=== PATIENT | male | born 1975 | race Caucasian/White ===

== ENCOUNTER 2020-11-14 14:05 | Outpatient (RCR) | payer MEDICARE, SELFPAY | END 2021-01-27 23:59 | LOC: IMMUN 14:05 | PROVIDERS: Visit Provider Family Medicine | DX: Z23 Encounter for immunization (principal) | CPT/HCPCS: 0001A; 0002A; 91300 ==

== ENCOUNTER → 2025-06-19 | Outpatient (CLI) | payer MEDICAID, SELFPAY ==
--- NOTE | 2025-06-19 08:42 | CT_ITS ---
PROCEDURE: SOFT TISSUE NECK W/WO CONTRAST 06/19/2025 REASON FOR EXAM: PARATHYROID TECHNIQUE: Procedure Code: CTNEWW Modality: CT Procedure: SOFT TISSUE NECK W/WO CONTRAST CONTRAST: Isovue 370 VOLUME: 100 mL One or more dose reduction techniques were used (e.g., Automated exposure control, adjustment of the mA and/or kV according to patient size, use of iterative reconstruction technique). RADIATION DOSE SUMMARY: CTDlvol: 20 mGy DLP: 586 mGycm FINDINGS: This study was performed without and with contrast according to the institutions parathyroid protocol. I am assuming that there is an elevated parathyroid hormone level. Correlated with prior nuclear medicine examination of 06/27/2024. Inspection of the right neck demonstrates normal carotid space without ectopic lesion. Inferiorly, there is a small area of oval enhancement dorsal to the right thyroid gland on image 76 of 108 of the initial contrasted examination. This is seen immediately adjacent to the esophagus and measures 6 by 3 mm. On the left, there is a lesion which was considered intrathyroidal which measures 64 Hounsfield units prior to contrast and 221 Hounsfield units initially and 113 Hounsfield units on initial delayed images. It should be noted that there is also accompanying washout in the thyroid gland. This lesion measures 17 x 10 mm. Interestingly, this lesion also demonstrated increased activity on delayed images in the nuclear medicine examination. There is no ectopic lesion superiorly on the left side. CT/Soft Tissue Neck W/WO Contrast IMPRESSION: 1. There are 2 lesions which may represent possible parathyroid pathology. The smaller 1 measures 6 x 3 mm seen to the right of the esophagus. The 2nd is difficult to separate from the thyroid gland but dem onstrated increased activity on delayed images and on the arterial and delayed images has a different density than the thyroid gla nd and is less dense on precontrast images. 2. There are no superior mediastinal lesions. Please note that the study did n ot extend down to the jens Reading Location: [facility]
--- OUTSIDE RECORDS SUMMARY | 2025-06-19 09:15 | XMS RPT_ITS | CCD ---
Author Organization [facility] Care Team Providers Care Pulverizing And Sifting Operator Name Role Phone PHYSICIAN, NONE Primary Care Physician Unavailab le BALTES BILLING REP-STONECUTTER, RAJI Primary Care Physician Provider, None Primary Care Provider Unavailabl e LAURI GARCIA DO Attending Unavailable BALTES BILLING REP-STONECUTTER, RAJI Primary Care Unavailabl e BALTA COBOS DO Attending Unavailabl e BALTES BILLING REP-STONECUTTER, RAJI Primary Care Unavailabl e BALTES BILLING REP-STONECUTTER, RAJI Primary Care Unavailabl e BALTES BILLING REP-STONECUTTER, RAJI Attending Unavailabl e BALTES BILLING REP-STONECUTTER, RAJI Attending Unavailabl e BALTES BILLING REP-STONECUTTER, RAJI Primary Care Unavailabl e BALTES, RAJI Primary Care Unavailable BALTES, RAJI Attending Unavailable AYUSH MCNULTY MD Attending Unavaila ble BALTES, RAJI Primary Care Unavailable BALTES, RAJI Primary Care Unavailable AYUSH MCNULTY MD Attending Unavaila ble BALCHRIS, RAJI Attending Unavailable BALTES, RAJI Primary Care Unavailable BALTES, RAJI Attending Unavailable BALTES, RAJI Primary Care Unavailable BALTES, RAJI Attending Unavailable BALTES, RAJI Primary Care Unavailable BALTA COBOS DO Attending Unavailabl e BALTES, RAJI Primary Care Unavailable BALTES, RAJI Attending Unavailable BALTES, RAJI Primary Care Unavailable BALTES, RAJI Primary Care Unavailable AYUSH MCNULTY MD Attending UnavailDR AKI Whipple MD Attending Unavailabl e BALTES, RAJI Primary Care Unavailable AYUSH MCNULTY MD Attending Unavaila ble BALCHRIS, RAJI Primary Care Unavailable HAMLET BENAVIDES, AYUSH Attending Unavaila ble BALTES, RAJI Primary Care Unavailable Baltes SEXUAL ABUSE COUNSELLOR-C, Raji Primary Care Physician [phone] Raji Duran Referring Provider [phone] Abena Guzman MD Attending Physician Abena Guzman Attending Unavailable Abena Guzman Referring Unavailable Katherin SEXUAL ABUSE COUNSELLOR, Raji Primary Care Unavailable Katherin SEXUAL ABUSE COUNSELLOR, Raji Primary Care Unavailable Katherin SEXUAL ABUSE COUNSELLOR, Raji Referring Unavailable Abena Guzman Attending Unavailable Allergies Allergy Classification Reported Allergen(s) Allergy Type Date of Onset Reaction(s) Facility (17 sources) Acetaminophen / HYDROcodone; Translations: [acetaminophen-hy drocodone] Drug Allergy [facility] (18 sources) Aspirin; Translations: [aspirin] Drug Allergy 5 Other [facility] Comment on above: Patient said breathi ng issues (19 sources) Erythromycin; Translations: [erythromycin] Drug Allergy 2 [facility] (17 sources) Penicillin; Translations: [penicillins] Drug Allergy [facility] (2 sources) Aluminum aspirin Drug Allergy 2 [facility] (2 sources) Penicillins Propensity to adverse reactions to drug 2 [facility] Work Phone: (1 source) Aspirin Drug Allergy 5 [facility] Repository Medications Current Medications Medication Drug Class(es) Dates Sig (Normalized) Sig (Original) acetaminophen 500 mg oral tablet (2 sources) Start: 05-16-2025 acetaminophen 500 mg oral tablet Dose : 1,000 mg = 2 tab(s), Oral, TID, PRN pain or fever, 0 Refill(s) Start Date: 05/16/25 Status: Ordered Medication Dispense Status: Completed Total Allowed Fills: 1 Fills Dispensed: 0 amitriptyline hydrochloride 25 mg oral tablet (10 sources) Tricyclic Antidepressant Start: 05-16-2025 End: 08-14-2025 take 1 tablet by mouth once daily Start: 12-19-2024 End: 04-09-2025 amitriptyline 25 mg oral tab let Dose : 25 mg = 1 tab(s), Oral, qHS, # 90 tab(s), 0 Refill(s), Pharmacy: [facility]/pharmacy #[id number], Tension headache, 168.8, cm, 01/09/25 10:01:00 EDT, Height, kg, 01/09/25 10:01:00 EDT, Dosing Weight Start Date: 01/09/25 Stop Date: 04/09/25 Status: Ordered Medication Dispense Status: Completed Quantity: 90.0 Unit: tab(s) Total Allowed Fills: 1 Fills Dispensed: 0 Indications: Tension-type headache, unspecified, not intractable; cholecalciferol 0.025 mg oral capsule (1 source) Vitamin D Start: 05-31-2025 take 1 capsule by mouth once daily clindamycin 300 mg oral capsule (1 source) Lincosamide Antibacterial Start: 06-11-2025 End: 06-16-2025 clindamycin 300 mg oral capsule Dose : 300 mg = 1 cap(s), Oral, q8hr, X 5 day(s), # 15 cap(s), 0 Refill(s), 06/16/25 9:19:00 AM EDT, Pharmacy: [facility]/pharmacy #[id number], Odontogenic infection of jaw, 152.9, cm, 06/11/25 8:58:00 EDT, Height, 68.7, kg, 06/11/25 8:58:00 EDT, Dosing Weight Start Date: 06/11/25 Stop Date: 06/16/25 Status: Ordered Medication Dispense Status: Completed Quantity: 15.0 Unit: cap(s) Total Allowed Fills: 1 Fills Dispensed: 0 Indications: Inflammatory conditions of jaws; doxycycline hyclate 100 mg oral capsule (3 sources) Tetracycline-class Drug Start: 05-31-2025 take 1 capsule by mouth twice daily Start: 05-29-2025 End: 06-05-2025 doxycycline hyclate 100 mg o ral tablet Dose : 100 mg = 1 tab(s), Oral, BID, X 7 day(s), # 14 tab(s), 0 Refill(s), 06/05/25 8:32:00 PM EDT, 69.5 Start Date: 05/29/25 Stop Date: 06/05/25 Status: Ordered Medication Dispense Status: Completed Quantity: 14.0 Unit: tab(s) Total Allowed Fills: 1 Fills Dispensed: 0 Start: 03-19-2024 End: 03-24-2024 doxycycline hyclate 100 mg o ral capsule Dose : 100 mg = 1 cap(s), Oral, BID, X 5 day(s), # 10 cap(s), 0 Refill(s), 03/24/24 11:20:00 PM EDT, 70.5 Start Date: 03/19/24 Stop Date: 03/24/24 Status: Ordered fluticasone propionate 0.05 mg/actuat metered dose nasal spray (2 sources) Corticosteroid Start: 06-04-2024 take 100 ug nasal route once daily in the morning Flonase 50 mcg/inh nasal spray 100 mcg Dose = 2 spray(s), Nostril, each, qAM, # 1 EA, 3 Refill(s), Pharmacy: [facility]/pharmacy #[id number], Seasonal allergies, 171, cm, 06/04/24 15:53:00 EDT, Height, kg, 06/04/24 15:53:00 EDT, Dosing Weight Start Date: 06/04/24 Status: Ordered levoFLOXacin 500 mg oral tablet (2 sources) Quinolone Antimicrobial Start: 06-04-2024 End: 06-11-2024 levoFLOXacin 500 mg oral tablet Dose : 500 mg = 1 tab(s), Oral, q24h, X 7 day(s), # 7 tab(s), 0 Refill(s), 06/11/24 4:22:00 PM EDT, Pharmacy: [facility]/pharmacy #[id number], Acute sinusitis, 171, cm, 06/04/24 15:53:00 EDT, Height, 62.3, kg, 06/04/24 15:53:00 EDT, Dosing Weight Start Date: 06/04/24 Stop Date: 06/11/24 Status: Ordered Start: 05-03-2024 End: 2024 levoFLOXacin 500 mg oral tab let Dose : 500 mg = 1 tab(s), Oral, q24h, X 7 day(s), # 7 tab(s), 0 Refill(s), 05/10/24 3:48:00 PM EDT, Pharmacy: [facility]/pharmacy #[id number], Sinusitis, 169.4, cm, 05/03/24 15:02:00 EDT, Height, 59.8, kg, 05/03/24 15:02:00 EDT, Dosing Weight Start Date: 05/03/24 Stop Date: 05/10/24 Status: Ordered methylPREDNISolone Dosepak 4 mg tablet (1 source) Start: 06-11-2025 End: 06-16-2025 take 1 tablet by mouth once daily methylPREDNISolone Dosepak 4 mg tablet 1 packet(s), Oral, qDay, as directed on package labeling, 0 Refill(s) Start Date: 06/11/25 Stop Date: 06/16/25 Status: Ordered Medication Dispense Status: Completed Total Allowed Fills: 1 Fills Dispensed: 0 naproxen 500 mg oral tablet (1 source) Nonsteroidal Anti-inflammator y Drug Start: 05-29-2025 End: 06-08-2025 naproxen 500 mg oral tablet Dose : 500 mg = 1 tab(s), Oral, BID, X 10 day(s), # 20 tab(s), 0 Refill(s), 06/08/25 8:32:00 PM EDT Start Date: 05/29/25 Stop Date: 06/08/25 Status: Ordered Medication Dispense Status: Completed Quantity: 20.0 Unit: tab(s) Total Allowed Fills: 1 Fills Dispensed: 0 Post-op shoe (2 sources) Start: 11-09-2021 Post-op shoe See Instructions, given in office, # 1 EA, 0 Refill(s), samples given to patient (Rx), Injury of right ankle and foot, 69.3 Start Date: 11/09/21 Status: Ordered tiZANidine 2 mg oral capsule (6 sources) Central alpha-2 Adrenergic Agonist Start: 06-11-2025 End: 07-02-2025 tiZANidine 2 mg oral capsule Dose : 2 mg = 1 cap(s), Oral, qHS, As needed for TMD / jaw pain, # 21 cap(s), 0 Refill(s), Pharmacy: [facility]/pharmacy #[id number], TMJ disease Back tightness, 152.9, cm, 06/11/25 8:58:00 EDT, Height, kg, 06/11/25 8:58:00 EDT, Dosing Weight Start Date: 06/11/25 Stop Date: 07/02/25 Status: Ordered Medication Dispense Status: Completed Quantity: 21.0 Unit: cap(s) Total Allowed Fills: 1 Fills Dispensed: 0 Indications: Unspecified temporomandibular joint disorder, unspecified side; Other specified dorsopathies, site unspecified; Start: 05-31-2025 take 1 capsule by [facility] at bedtime as needed Start: 05-16-2025 End: 05-26-2025 tiZANidine 2 mg oral capsule Dose : 2 mg = 1 cap(s), Oral, TID, PRN as needed for muscle spasm, # 30 cap(s), 0 Refill(s), [id number], Back tightness, 169, cm, 05/16/25 8:37:00 EDT, Height, kg, 05/16/25 8:34:00 EDT, Dosing Weight Start Date: 05/16/25 Stop Date: 05/26/25 Status: Ordered Medication Dispense Status: Completed Quantity: 30.0 Unit: cap(s) Total Allowed Fills: 1 Fills Dispensed: 0 Indications: Other specified dorsopathies, site unspecified; Start: 04-10-2025 End: 07-09-2025 tiZANidine 2 mg oral tablet Dose : 4 mg = 2 tab(s), Oral, qHS, PRN Muscle spasm, # 30 tab(s), 0 Refill(s), [id number], Cervical spondylosis, 170, cm, 04/10/25 11:02:00 EDT, Height, kg, 04/10/25 11:02:00 EDT, Dosing Weight Start Date: 04/10/25 Stop Date: 07/09/25 Status: Ordered Medication Dispense Status: Completed Quantity: 30.0 Unit: tab(s) Total Allowed Fills: 1 Fills Dispensed: 0 Indications: Spondylosis without myelopathy or radiculopathy, cervical region; Start: 02-05-2025 End: 02-19-2025 tiZANidine 4 mg oral capsule Dose : 4 mg = 1 cap(s), Oral, qHS, PRN for muscle spasm, # 14 cap(s), 0 Refill(s), Pharmacy: [facility]/pharmacy #[id number], Neck pain Back pain, 169, cm, 01/10/25 9:33:00 EDT, Height, kg, 01/10/25 9:33:00 EDT, Dosing Weight Start Date: 02/05/25 Stop Date: 02/19/25 Status: Ordered Quantity: 14.0 Unit: cap(s) Repeat number: 1 Indications: Dorsalgia, unspecified; Cervicalgia; Start: 11-22-2024 End: 12-06-2024 tiZANidine 4 mg oral capsule Dose : 4 mg = 1 cap(s), Oral, qHS, PRN for muscle spasm, # 14 cap(s), 0 Refill(s), Pharmacy: [facility]/pharmacy #[id number], Neck pain Back pain, 168.8, cm, 11/22/24 13:29:00 EDT, Height, kg, 11/22/24 13:29:00 EDT, Dosing Weight Start Date: 11/22/24 Stop Date: 12/06/24 Status: Ordered Quantity: 14.0 Unit: cap(s) Repeat number: 1 Indications: Dorsalgia, unspecified; Cervicalgia; Vitamin D3 (5 sources) Start: 11-04-2016 Vitamin D3 Dos e : 5,000 unit(s) = 1 cap(s), Oral, qDay, 0 Refill(s) Start Date: 11/04/16 Status: Ordered Start: 11-04-2016 Vitamin D3 Dos e : 5,000 unit(s) = 1 cap(s), Oral, qWeek, 0 Refill(s) Start Date: 11/04/16 Status: Ordered Vitamin D3 50 mcg (2000 intl units) oral capsule (13 sources) Start: 05-16-2025 End: 08-14-2025 take 1 tablet by mouth once daily Vitamin D3 50 mcg (2000 intl units) oral capsule 1 tab(s), Oral, Daily, # 90 tab(s), 0 Refill(s), Pharmacy: [facility]/pharmacy #[id number], Vitamin D deficiency, 169, cm, 05/16/25 8:37:00 EDT, Height, kg, 05/16/25 8:34:00 EDT, Dosing Weight Start Date: 05/16/25 Stop Date: 08/14/25 Status: Ordered Medication Dispense Status: Completed Quantity: 90.0 Unit: tab(s) Total Allowed Fills: 1 Fills Dispensed: 0 Indications: Vitamin D deficiency, unspecified; Start: 03-05-2025 End: 06-03-2025 take 1 tablet by mouth once daily Vitamin D3 50 mcg (2000 intl units) oral capsule 1 tab(s), Oral, Daily, # 90 tab(s), 0 Refill(s), Pharmacy: [facility]/pharmacy #[id number], Vitamin D deficiency, 169, cm, 01/10/25 9:33:00 EDT, Height, kg, 01/10/25 9:33:00 EDT, Dosing Weight Start Date: 03/05/25 Stop Date: 06/03/25 Status: Ordered Medication Dispense Status: Completed Quantity: 90.0 Unit: tab(s) Total Allowed Fills: 1 Fills Dispensed: 0 Indications: Vitamin D deficiency, unspecified; Start: 03-05-2025 End: 06-03-2025 take 1 tablet by mouth once daily Vitamin D3 50 mcg (2000 intl units) oral capsule 1 tab(s), Oral, Daily, # 90 tab(s), 0 Refill(s), [id number], Vitamin D deficiency, 169, cm, 01/10/25 9:33:00 EDT, Height, kg, 01/10/25 9:33:00 EDT, Dosing Weight Start Date: 03/05/25 Stop Date: 06/03/25 Status: Ordered Quantity: 90.0 Unit: tab(s) Repeat number: 1 Indications: Vitamin D deficiency, unspecified; Start: 11-22-2024 End: 02-20-2025 take 1 tablet by mouth once daily Vitamin D3 50 mcg (2000 intl units) oral capsule 1 tab(s), Oral, Daily, # 90 tab(s), 0 Refill(s), [id number], Vitamin D deficiency, 168.8, cm, 11/22/24 13:29:00 EDT, Height, kg, 11/22/24 13:29:00 EDT, Dosing Weight Start Date: 11/22/24 Stop Date: 02/20/25 Status: Ordered Quantity: 90.0 Unit: tab(s) Repeat number: 1 Indications: Vitamin D deficiency, unspecified; Start: 05-05-2024 End: 08-03-2024 take 1 tablet by mouth once daily Vitamin D3 50 mcg (2000 intl units) oral capsule 1 tab(s), Oral, Daily, # 90 tab(s), 0 Refill(s), Pharmacy: [facility]/pharmacy #[id number], Vitamin D deficiency, 169.4, cm, 05/03/24 15:02:00 EDT, Height, kg, 05/03/24 15:02:00 EDT, Dosing Weight Start Date: 05/05/24 Stop Date: 08/03/24 Status: Ordered Completed/Discontinued Medications Medication Drug Class(es) Dates Sig (Normalized) Sig (Original) meloxicam 15 mg oral tablet (4 sources) Nonsteroidal Anti-inflammatory Drug Start: 12-19-2024 End: 01-18-2025 meloxicam 15 mg oral tablet Dose : 15 mg = 1 tab(s), Oral, qDay, # 30 tab(s), 0 Refill(s), [id number], Low back pain, 168.8, cm, 12/19/24 9:13:00 EDT, Height, kg, 12/19/24 9:04:00 EDT, Dosing Weight Start Date: 12/19/24 Stop Date: 01/18/25 Status: Ordered Quantity: 30.0 Unit: tab(s) Repeat number: 1 Indications: Low back pain, unspecified; Start: 11-09-2021 meloxicam 15 m g oral tablet Dose : 15 mg = 1 tab(s), Oral, qDay, # 30 tab(s), 0 Refill(s), [facility]: [facility] Injury of right ankle and foot, 170.2, cm, 11/09/21 9:33:00 EDT, Height, kg, 11/09/21 9:33:00 EDT, Dosing Weight Start Date: 11/09/21 Status: Ordered Problems Active Problems Problem Classification Problem Date Documented Date Episodic/Chronic Asthma (17 sources) Asthma 11-04-2016 Chronic Cardiac dysrhythmias (1 source) Tachyarrhythmia ; Translations: [Tachycardia, unspecified] Episodic Chronic obstructive pulmonary disease and bronchiectasis (17 sources) Chronic obstructive lung disease 11-04-2016 Chronic Disorders of teeth and jaw (3 sources) Dental caries; Translations: [Dental caries, unspecified] Onset: Episodic Fracture of lower limb (1 source) Closed fracture of third metatarsal bone ; Translations: [Displaced fracture of third metatarsal bone, right foot, initial encounter for closed fracture] Episodic Nutritional deficiencies (7 sources) Vitamin D deficiency 03-19-2025 Chronic Osteoporosis (4 sources) Osteoporosis; Translations: [Age-related osteoporosis without current pathological fracture] 05-15-2025 Chronic Comment on above: Osteoporosis likely secondary to primary hyperparathyroidism described in greater detail above. Other connective tissue disease (1 source) Pain in right foot; Translations: [Pain in right foot] Episodic Other endocrine disorders (9 sources) Primary hyperparathyroidism; Translations: [Primary hyperparathyroidism] 03-19-2025 Chronic Comment on above: Patient with clear d iagnosis of primary parathyroidism by labs. He is quite symptomatic with a number of recent pathologic fractures as well as osteoporosis determined on DEXA imaging 2 months ago. Interestingly, patient's forearm appears to most demineralized which is somewhat specific to this diagnosis. A brief overview of hyperparathyroidism was provided to patient including the multiple secondary effects of this disease process. It does not appear that patient has undergone testing for occult nephrolithiasis or 24-hour urinary calcium. However, he does have evidence of significant hypercalcemia which meets qualifications for surgical intervention. Additionally, patient underwent localization studies with thyroid ultrasound and parathyroid scintigraphy. Unfortunately no candidate lesions were identified with the studies, but in my independent review I observed a hypoechoic structure in the left superior position that is highly suggestive. With this finding I believe it is possible patient's scintigraphy was in fact positive in the absence of washout on the left was truly attributable to an adenoma? This was further confirmed with my own bedside ultrasound. Any intervention on the patient's thyroid should include intervention for patient's primary hyperparathyroidism so we will continue this investigation. Other gastrointestinal disorders (2 sources) Dysphagia; Translations: [Dysphagia, unspecified] 05-31-2025 Episodic Comment on above: Patient describes dy sphagia to solids and liquids. Size of thyroid and nodule do not appear entirely explanatory. Will investigate further with CT imaging. Other nutritional; endocrine; and metabolic disorders (7 sources) Hypercalcemia 03-19-2025 Chronic Other screening for suspected conditions (not mental disorders or infectious disease) (1 source) Blood chemistry abnormal; Translations: [Other specified abnormal findings of blood chemistry] Episodic Other upper respiratory disease (12 sources) Seasonal allergy 06-04-2024 Chronic Other upper respiratory infections (1 source) Chronic sinusitis; Translations: [Chronic sinusitis, unspecified] Chronic Other upper respiratory infections (1 source) Acute sinusitis, unspecified; Translations: [Acute sinusitis, unspecified] Onset: 4 Episodic Spondylosis; intervertebral disc disorders; other back problems (20 sources) Degeneration of lumbar intervertebral disc; Translations: [Cervical spondylosis] 12-18-2024 Chronic Sprains and strains (1 source) Sprain of ankle; Translations: [Sprain of unspecified ligament of unspecified ankle, initial encounter] Onset: 1 Episodic Thyroid disorders (12 sources) Thyroid nodule; Translations: [Nontoxic single thyroid nodule] Onset: 5 10-26-2024 Chronic Comment on above: Patient is a 50-year -old male with history of left thyroid nodule highly suspicious by TI-RADS rating that underwent FNA biopsy and determined to be benign. He presents with possible compressive symptom primarily being difficulty swallowing. No prior EGD exam. Given patient's thyroid nodule and low proportions it remains somewhat dubious whether his thyroid is too be implicated with this swallowing difficulty. Therefore, recommending CT imaging to determine spatial relationship to the esophagus as well as possible subsequent recommendation for EGD. Since we are also looking for further localization of a possible parathyroid will obtain 4D CT protocol of the neck. Unclassified (12 sources) Patient encounter status 06-04-2024 Past or Other Problems Problem Classification Problem Date Documented Da te Episodic/Chronic Malaise and fatigue (3 sources) Asthenia; Translations: [Weakness] Onset: 11-06-2024 Episodic Spondylosis; intervertebral disc disorders; other back problems (4 sources) Backache; Translations: [Dorsalgia, unspecified] Onset: 11-06-2024 Episodic Results Test Name Value Interpretation Reference Range Facility .GFRon 06-14-2025 Estimated Glomerular Filtration Rate 103 ml/min/1.73sqm Normal [facility] Comment on above: Result Comment: Stages of Chronic Kidney Disease (CKD) Stage Description eGFR(ml/min/1.73 sq.m.) CKD 1 Normal kidney function or >=90 normal kindney function with possible kidney damage (ex. Proteinuria) CKD 2 Kidney damage with mild loss 60-89 of kidney function CKD 3a Mild to moderate loss of kidney 45-59 function CKD 3b Moderate to severe loss of 30-44 of kindey function CKD 4 Severe loss of kidney function 15-29 CKD 5 Kidney failure <15 Note: (go live 2024) the eGFR calculation was updated to the 2020 CKD-EPI creatinine equation without a race factor to calculate the eGFR results. Performed By: #### G FR, PHOS, FT4, MG, VIDH, CMP, TSH, CAION ####[place] [address]#### PTH ####[place] [address] CAIONon 06-14-2025 Calcium Ionized 1.45 mmol/L High 1.12-1.32 [facility] Comment on above: Performed By: #### C AUR #### [place] [address] #### CRUR #### [place] [address] CAURon 06-14-2025 Calcium [Mass/Vol] 14.0 mg/dL Normal [facility] Comment on above: Performed By: #### C AUR #### [place] [address] #### CRUR #### [place] [address] CMPon 06-14-2025 Albumin Level 3.6 G/dL Normal 3.5-5.0 [facility] Comment on above: Performed By: #### G FR, PHOS, FT4, MG, VIDH, CMP, TSH, CAION ####[place] [address]#### PTH ####[place] [address] Albumin/Globulin [Mass ratio] 1.0 {ratio} Low 1.1-2.5 [facility] Comment on above: Performed By: #### G FR, PHOS, FT4, MG, VIDH, CMP, TSH, CAION ####[place] [address]#### PTH ####[place] [address] ALP [Catalytic activity/Vol] 113 U/L Normal 40-135 [facility] Comment on above: Performed By: #### G FR, PHOS, FT4, MG, VIDH, CMP, TSH, CAION ####[place] [address]#### PTH ####[place] [address] ALT [Catalytic activity/Vol] 38 U/L Normal 16-63 [facility] Comment on above: Performed By: #### G FR, PHOS, FT4, MG, VIDH, CMP, TSH, CAION ####[place] [address]#### PTH ####[place] [address] AST [Catalytic activity/Vol] 13 U/L Normal 10-40 [facility] Comment on above: Performed By: #### G FR, PHOS, FT4, MG, VIDH, CMP, TSH, CAION ####[place] [address]#### PTH ####[place] [address] Bili Total 0.4 mg/dL Normal 0.2-1.0 [facility] Comment on above: Result Comment: Use of this assay is not recommended for patients undergoing treatment with eltrombopag due to the potential for falsely elevated results. Performed By: #### G FR, PHOS, FT4, MG, VIDH, CMP, TSH, CAION ####[place] [address]#### PTH ####[place] [address] BUN/Creatinine Ratio 9 ratio Normal 7-27 [facility] Comment on above: Performed By: #### G FR, PHOS, FT4, MG, VIDH, CMP, TSH, CAION ####[place] [address]#### PTH ####[place] [address] Calcium [Mass/Vol] 12.0 mg/dL High 8.4-10.2 [facility] Comment on above: Performed By: #### G FR, PHOS, FT4, MG, VIDH, CMP, TSH, CAION ####[place] [address]#### PTH ####[place] [address] Chloride [Moles/Vol] 101 mmol/L Normal 98-107 [facility] Comment on above: Performed By: #### G FR, PHOS, FT4, MG, VIDH, CMP, TSH, CAION ####[place] [address]#### PTH ####[place] [address] CO2 [Moles/Vol] 31 mmol/L High 22-29 [facility] Comment on above: Performed By: #### G FR, PHOS, FT4, MG, VIDH, CMP, TSH, CAION ####[place] [address]#### PTH ####[place] [address] Creatinine [Mass/Vol] 0.89 mg/dL Normal 0.67-1.17 [facility] Comment on above: Performed By: #### G FR, PHOS, FT4, MG, VIDH, CMP, TSH, CAION ####[place] [address]#### PTH ####[place] [address] Electrolyte Balance 5.0 mEq/L Normal 4.0-15.0 [facility] Comment on above: Performed By: #### G FR, PHOS, FT4, MG, VIDH, CMP, TSH, CAION ####[place] [address]#### PTH ####[address] [address] Globulin 3.7 G/dL Normal 2.7-4.4 [facility] Comment on above: Performed By: #### G FR, PHOS, FT4, MG, VIDH, CMP, TSH, CAION ####[place] [address]#### PTH ####[place] [address] Glucose [Mass/Vol] 78 mg/dL Normal 70-105 [facility] Comment on above: Performed By: #### G FR, PHOS, FT4, MG, VIDH, CMP, TSH, CAION ####[place] [address]#### PTH ####[place] [address] Potassium [Moles/Vol] 4.1 mmol/L Normal 3.5-5.1 [facility] Comment on above: Performed By: #### G FR, PHOS, FT4, MG, VIDH, CMP, TSH, CAION ####[place] [address]#### PTH ####[place] [address] Sodium [Moles/Vol] 137 mmol/L Normal 136-145 [facility] Comment on above: Performed By: #### G FR, PHOS, FT4, MG, VIDH, CMP, TSH, CAION ####[place] [address]#### PTH ####[place] [address] Total Protein 7.3 G/dL Normal 6.4-8.2 [facility] Comment on above: Performed By: #### G FR, PHOS, FT4, MG, VIDH, CMP, TSH, CAION ####[place] [address]#### PTH ####[address] [address] Urea nitrogen [Mass/Vol] 8 mg/dL Normal 7-18 [facility] Comment on above: Performed By: #### G FR, PHOS, FT4, MG, VIDH, CMP, TSH, CAION ####[address] [place], [place] [address]#### PTH ####[place] [address] CRURon 06-14-2025 U Creatinine 32.6 mg/dL Normal [facility] Comment on above: Performed By: #### C AUR #### [place] [address] #### CRUR #### [facility] [address] [place], [place] [address] FT4on 06-14-2025 Free T4 [Mass/Vol] 1.00 ng/dL Normal 0.76-1.46 [facility] Comment on above: Performed By: #### G FR, PHOS, FT4, MG, VIDH, CMP, TSH, CAION ####[address] [address]#### PTH ####[place] [address] LABORATORYOrdered By: Connie Urbina on 06-14-2025 Calcium (U) [Mass/Vol] 14.0 mg/dL Invalid Interpretation Code AH ADM SS LABORATORYOrdered By: SYSTEM SYSTEM on 06-14-2025 Creatinine (U) [Mass/Vol] 32.6 mg/dL Invalid Interpretation Code AO ADM SS 25-hydroxyvitamin D3 [Mass/Vol] 31.5 ng/mL Invalid Interpretation Code AO ADM SS Comment on above: Interpretive Data: I nterpretive Values Based on Total 25(OH) Vitamin D: Deficient <20 ng/mL Insufficient 20 - <30 ng/mL Sufficient 30-100 ng/mL Albumin BCP dye [Mass/Vol] 3.6 G/dL Normal 3.5 - 5.0 G/dL AO ADM SS Albumin/Globulin [Mass ratio] 1.0 {ratio} Low 1.1 - 2.5 ratio AO ADM SS ALP [Catalytic activity/Vol] 113 U/L Normal 40 - 135 U/L AO ADM SS ALT With P-5'-P [Catalytic activity/Vol] 38 U/L Normal 16 - 63 U/L AO ADM SS AST With P-5'-P [Catalytic activity/Vol] 13 U/L Normal 10 - 40 U/L AO ADM SS Bilirubin [Mass/Vol] 0.4 mg/dL Normal 0.2 - 1 .0 mg/dL AO ADM SS Comment on above: Interpretive Data: U se of this assay is not recommended for patients undergoing treatment with eltrombopag due to the potential for falsely elevated results. Calcium [Mass/Vol] 12.0 mg/dL High 8.4 - 10. 2 mg/dL AO ADM SS Chloride [Moles/Vol] 101 mmol/L Normal 98 - 10 7 mmol/L AO ADM SS CO2 [Moles/Vol] 31 mmol/L High 22 - 29 mmol/L AO ADM SS Creatinine [Mass/Vol] 0.89 mg/dL Normal 0.67 - 1.17 mg/dL AO ADM SS Electrolyte Balance 5.0 mEq/L Normal 4.0 - 15 .0 mEq/L AO ADM SS Free T4 [Mass/Vol] 1.00 ng/dL Normal 0.76 - 1. 46 ng/dL AO ADM SS Globulin 3.7 G/dL Normal 2.7 - 4.4 G/dL AO ADM SS GLOMERULAR FILTRATION RATE/1.73 SQ M.PREDICTED:ARVRAT:PT :SER/PLAS/BLD:QN:CREA TININE-BASED FORMULA (CKD-EPI 2020) 103 ml/min/1.73sqm Invalid Interpretation Code AO Chemistry S Comment on above: Interpretive Data: Stages of Chronic Kidney Disease (CKD) Stage Description eGFR(ml/min/1.73 sq.m.) CKD 1 Normal kidney function or >=90 normal kindney function with possible kidney damage (ex. Proteinuria) CKD 2 Kidney damage with mild loss 60-89 of kidney function CKD 3a Mild to moderate loss of kidney 45-59 function CKD 3b Moderate to severe loss of 30-44 of kindey function CKD 4 Severe loss of kidney function 15-29 CKD 5 Kidney failure <15 Note: (go live 2024) the eGFR calculation was updated to the 2020 CKD-EPI creatinine equation without a race factor to calculate the eGFR results. Glucose [Mass/Vol] 78 mg/dL Normal 70 - 105 mg/dL AO ADM SS Magnesium [Mass/Vol] 2.1 mg/dL Normal 1.8 - 2 .4 mg/dL AO ADM SS Parathyrin.intact [Mass/Vol] 100.5 pg/mL High 18.5 - 88.0 pg/mL AH ADM SS Phosphate [Mass/Vol] 3.0 mg/dL Normal 2.7 - 4 .5 mg/dL AO ADM SS Potassium [Moles/Vol] 4.1 mmol/L Normal 3.5 - 5.1 mmol/L AO ADM SS Protein [Mass/Vol] 7.3 G/dL Normal 6.4 - 8.2 G/dL AO ADM SS Sodium [Moles/Vol] 137 mmol/L Normal 136 - 145 mmol/L AO ADM SS TSH Qn 1.27 m[IU]/L Normal 0.36 - 3.74 mcIU/mL AO ADM SS Urea nitrogen [Mass/Vol] 8 mg/dL Normal 7 - 18 mg/dL AO ADM SS Urea nitrogen/Creatinine [Mass ratio] 9 ratio Normal 7 - 27 ratio AO ADM SS LABORATORYOrdered By: Conor gan on 06-14-2025 Calcium Ionized 1.45 mmol/L High 1.12 - 1.32 mmol/L AO Rapid Comm SS MGon 06-14-2025 Magnesium [Mass/Vol] 2.1 mg/dL Normal 1.8-2.4 [facility] Comment on above: Performed By: #### C AUR #### [address] [address] #### CRUR #### [address] [address] PHOSon 06-14-2025 Phosphate [Mass/Vol] 3.0 mg/dL Normal 2.7-4.5 [facility] Comment on above: Performed By: #### C AUR #### [address] [address] #### CRUR #### [place] [id number] [place], [place] [address] PTHon 06-14-2025 PTH, Intact 100.5 pg/mL High 18.5-88.0 [facility] Comment on above: Performed By: #### G FR, PHOS, FT4, MG, VIDH, CMP, TSH, CAION ####[place] [address] [place], [place] [address]#### PTH ####[address] [address] TSHon 06-14-2025 TSH Qn 1.27 m[IU]/L Normal 0.36-3.74 [facility] Comment on above: Performed By: #### C AUR #### [place] [address] #### CRUR #### [address] [address] VIDHon 06-14-2025 Vit. D 25-Hydroxy 31.5 ng/mL Normal [facility] Comment on above: Result Comment: Inte rpretive Values Based on Total 25(OH) Vitamin D: Deficient <20 ng/mL Insufficient 20 - <30 ng/mL Sufficient 30-100 ng/mL Performed By: #### G FR, PHOS, FT4, MG, VIDH, CMP, TSH, CAION ####[place] [address] [place] [id number]#### PTH ####[place] [address] Surgery Visit Reporton 05-31 Surgery Visit Report [facility] [address] [place] [address] [address] [place] [address] OFFICE VISIT Date of Service: 05/31/25 MR#: [id number] Acct: [id number] Name: MARIBEL LANGFORD Fred Rep #: [id number] : 1975 Provider: Dr. Abena cai MD Age/Sex: 50/M Location: [facility] Status: Signed Intake Vital Signs 05/31/25 09:50 Height 5 ft 9 in Weight: 151 lb BMI 22.3 BP 137/91 H Blood Pressure Location Rt brachial Position Sitting Respiration 17 Pulse 115 H Pulse Source Monitor Pulse Oximetry (%) 98 Oxygen Delivery Method room air Intake Visit Reasons: POSSIBLE THYROIDECTOMY Chief Complaint: possible thyroidectomy Is patient in pain?: No Allergies aspirin Allergy (Intermediate, Verified 05/31/25 09:53) Other Medications ???Medication ???Instructions ???Recorded ???Confirmed ???Type amitriptyline 25 mg tablet 25 mg PO QDAY 05/31/25 05/31/25 Hi story cholecalciferol (vitamin D3) 25 25 mcg PO QDAY 05/31/25 05/31/25 H istory mcg (1,000 unit) capsule doxycycline hyclate 100 mg capsule 100 mg PO BID 05/31/25 05/31/25 History tizanidine 4 mg capsule 4 mg PO QHS PRN 05/31/25 05/31/25 History PFSH Medical History (Updated 05/31/25 @ 18:[address] Abena Guzman MD) Sleep apnea Asthma Family History (Updated 05/31/25 @ 09:47 by Leeanne John) Mother Cancer Thyroid disorder Hypertension Father Cancer Social History (Updated 05/31/25 @ 09:47 by Leeanne John) Smoking Status: Current every day smoker quit status: not considering quitting alcohol intake: current alcohol intake frequency: a few times a month HPI HPI HPI: The patient is a 50-year-old male with hyperparathyroidism and osteoporosis presenting to discuss thyroid and parathyroid issues. The patient reports a several-year history of fatigue and malaise that prompted extensive testing before hypercalcemia was identified. He recalls that the workup intensified last year, and he has been followed by endocrinology (Dr. Michaud). He was told that his parathyroid condition is causing calcium to be pulled from his bones, leading to osteoporosis and fractures. He reports a history of multiple fractures over the past few years, including a recent incident this year where he fractured his back in multiple places and injured his neck while lifting a laundry basket at home after a physically demanding workday. 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 He also reports a history of breaking 5 toes, his foot, and ankle while wrestling with his son 3-4 years ago, as well as a prior fracture of his other ankle. He has undergone bone density testing with Dr. Michaud, who informed him that his bones are very bad, comparable to those of someone 20 years older. He denies brittle fingernails. He reports dental problems, including a tooth that broke while eating soft food last year, which he attributes to his bone condition. He denies cavities. He also reports difficulty swallowing both solids and liquids for about a year, which has worsened over time. He experiences episodes where food just won't go down and attributes this to his neck injury and muscle problems for which he received injections last week. He also reports neck stiffness and difficulty moving his neck. He denies kidney stones. He reports urinary frequency and urgency, with variable volumes. He drinks approximately 2 gallons of tea daily and consumes a large glass of lactose-free milk each morning, snacks on cheese, and avoids ice cream and yogurt due to lactose intolerance. He does not take calcium supplements. He reports cognitive slowing, difficulty focusing, and forgetfulness that has worsened over the past year. He also reports muscle weakness and difficulty standing up due to his back injury. He denies palpitations, anxiety, depression, reflux, constipation, shortness of breath, dry cough, hoarseness, heat or cold intolerance, and radiation exposure. He reports snoring and trouble sleeping due to discomfort but is unaware of any sleep apnea. He reports weight fluctuations but states his weight has been steady recently. He reports stable bowel habits. He has a family history of parathyroid problems in his mother, who reportedly had most of her parathyroid glands removed and is doing well. He is unaware of any other family history of thyroid or adrenal conditions. He has no history of radiation exposure. He was diagnosed with a 2.0 cm left thyroid nodule in March, which was biopsied and found to be benign. He has not undergone an EGD. He believes he is up to date on colonoscopies, with the last one performed last year. Patient's current labs are calcium: 1 (more content not included)... Normal [facility] Non-Stitcher Feeder Cytology Reporton Non-Stitcher Feeder Cytology Report . Pathology Reports Accession: Collected Date/Time: Received Date/Time: Pathologist: [id number] 04/18/2025 17:19 EDT 04/19/2025 08:59 EDT DALE SIMON MD Non-Stitcher Feeder Cytology Report CLINICAL INFORMATION: Thyroid nodule E04.1 DIAGNOSTIC CATEGORY: BENIGN. Benign-appearing follicular cells and colloid, consistent with a benign follicular nodule. Air-drying artifact present. SPECIMEN: LLL 2.0cm thyroid nodule FNA GROSS DESCRIPTION: # of Monolayers: 1 # of Fixed Smears: 6 Volume (ml) 30 Color: Fixed clear pink CytoLyt Afirma sample collected for reflex testing SUGGESTION/EDUCATIONAL NOTES: This specimen was evaluated using criteria described in The [employer] System for Reporting Thyroid Cytopathology, Second Edition (2018). The following risk of malignancy rates are estimates based on published studies and includes data extrapolation. Individual institutions may have different rates. Actual management may depend on other factors (e.g., clinical. Sonographic) besides the FNA interpretation. Diagnostic Category Risk of Usual management malignancy (%) Non diagnostic or Unsatisfactory 5-10 Repeat FNA with US guidance Benign 0-3 Clinical and US follow up Atypia of Undetermined 10-30 Repeat FNA, molecular Significance testing or lobectomy Follicular neoplasm or Suspicious 25-40 Molecular testing, for follicular neoplasm lobectomy Suspicious for Malignancy 50-75 Near-total thyroidectomy or lobectomy Malignant 97-99 Near-total thyroidectomy or lobectomy Verified by Pathology Report verified by [facility] Screened by: LAUREN NG Electronically signed by DALE SIMON Sign-Out Date: 04/23/2025 11:50 Performing Lab: [facility], [address] [place] [address] Pathology Dept Disclaimer If ancillary studies were utilized, the following Laboratory Developed Test (LDT) disclaimer will apply: Pathology Reports Accession: Collected Date/Time: Received Date/Time: Pathologist: [id number] 04/18/2025 17:19 EDT 04/19/2025 08:59 EDT DALE SIMON MD Disclaimer Under CLIA requirements, [facility] is qualified to perform high complexity testing. For all ancillary stains, positive and negative controls stain appropriately. Performance characteristics of immunohistochemical and chromogenic in-situ hybridization tests have been determined by [facility]. These tests are used for clinical purposes, They should not be regarded as investigational or for research. Normal [facility] MRI SPINE CERVICAL W/O CONTR Sandra 03-29-2025 MRI SPINE CERVICAL W/O CONTRAST ORIGINAL EXAMINATION: MRI OF THE CERVICAL SPINE WITHOUT CONTRAST 03/29/2025 11:14 am TECHNIQUE: Multiplanar multisequence MRI of the cervical spine was performed without the administration of intravenous contrast. COMPARISON: None. HISTORY: ORDERING SYSTEM PROVIDED HISTORY: Reason for Exam: Neck pain, chronic, degenerative changes on xray ; Neck pain, chronic FINDINGS: BONES/ALIGNMENT: There is normal alignment of the spine. The vertebral body heights are maintained. The bone marrow signal appears unremarkable. Facet arthropathy is greatest at C4-C5. SPINAL CORD: No abnormal cord signal is seen. SOFT TISSUES: No paraspinal mass identified. Sebaceous cysts are noted in the subcutaneous fat overlying the occiput. C2-C3: There is no significant disc protrusion, spinal canal stenosis or neural foraminal narrowing. C3-C4: There is no significant disc protrusion, spinal canal stenosis or neural foraminal narrowing. C4-C5: There is no significant disc protrusion, spinal canal stenosis or neural foraminal narrowing. C5-C6: There is no significant disc protrusion, spinal canal stenosis or neural foraminal narrowing. C6-C7: There is no significant disc protrusion, spinal canal stenosis or neural foraminal narrowing. C7-T1: There is no significant disc protrusion, spinal canal stenosis or neural foraminal narrowing. IMPRESSION: Facet degenerative changes. No herniated disc or significant canal or foraminal narrowing. Interpreted by: Jaya Daniel Preliminary Report By: Jaya Daniel Electronically signed By Jaya Daniel Dictated Date: 03/29/2025 11:29:29 AM Prelim Date: 03/29/2025 11:30:43 AM Sign Date: 03/29/2025 11:30:43 AM Ordering Provider: BALTA Mcnally [facility] BD BONE DENSITY DEXA AXIAL S Evangelina 03-25-2025 BD BONE DENSITY DEXA AXIAL SKELETON ORIGINAL EXAMINATION: BONE DENSITOMETRY03/25/2025 10:22 am TECHNIQUE: Dual energy bone densitometry right forearm and left hip. COMPARISON: None HISTORY: ORDERING SYSTEM PROVIDED HISTORY:Reason for Exam: hypercalcemia, possible mineralization defect Osteoporosis screening. FINDINGS: T Score Left Femoral Neck: -2.3 Left Femoral Neck: 0.613 (g/cm2) T Score Left Hip: -1.6 Left Hip: 0.786 (g/cm2) T Score Right Forearm: -3.0 Right Forearm: 0.654 (g/cm2) COMMENTS: hx back fx, hx lt elbow sx FRAX score: 10 year risk major osteoporotic fracture 25 %. 10 year risk hip fracture 6.4 %. The BHOF f/k/a NOF recommends that FDA-approved medical therapies be considered in post-menopausal women and men age >/= 50 years with a: * Hip or vertebral fracture, or * T-score of /= 20% for major osteoporotic fractures or * >/= 3% for hip fractures All treatment decisions require clinical judgement and consideration of individual patient factors, including patient preferences, comorbidities, previous drug use, risk factors not captured in the FRAX registered model (e.g., frailty, falls, vitamin D deficiency, increased bone turnover, interval significant decline in bone density) and possible under- or over-estimation of fracture risk by FRAX. IMPRESSION: Osteoporosis. Interpreted by: Marcy Stephens MD Preliminary Report By: Marcy Stephens MD Electronically signed By Marcy Stephens MD Dictated Date: 03/25/2025 11:52:16 PM Prelim Date: 03/25/2025 11:53:48 PM Sign Date: 03/25/2025 11:53:48 PM Ordering Provider: AYUSH MCNULTY [facility] US THYROIDon 03-25-2025 US THYROID ORIGINAL EXAMINATION: Ultrasound Thyroid 03/25/2025 10:29 am COMPARISON: Ultrasound 07/31/2024 TECHNIQUE: This report is based on interpretation of permanently recorded ultrasound images. HISTORY: ORDERING SYSTEM PROVIDED HISTORY: Reason for Exam: Thyroid Nodule, FINDINGS: Size right thyroid lobe: 4.9 x 1.6 x 1.9 cm Size left thyroid lobe: 5.9 x 2.1 x 1 point cm Size isthmus: 0.7 cm Texture: Homogeneous background echogenicity with normal vascularity. Estimated total number of nodules greater than or equal to 1 cm: 1 Nodule#: # 1: This is a nodule in the lower left lobe also seen previously that is 2.0 x 1.4 x 1.1 cm not significantly changed. The nodule is solid hyperechoic taller than wide with lobular margins and no suspicious echogenic foci. ACR Total Points: >/= 7; ACR TI-RADS risk category: TR5 - highly suspicious nodule. There is no other suspicious thyroid nodule. IMPRESSION: Stable left thyroid nodule. 1. Nodule 1: Size 2.0 cm, ACR TI-RADS 2017 Risk category and Recommendation TR 5, fine-needle biopsy suggested.. ACR TI-RADS 2017 Recommendations: TR1(0 points) : No FNA or follow up TR2 (2 points) : No FNA or follow up TR3 (3 points) : FNA if >/= 2.5 cm, follow up if 1.5 - 2.4 cm in 1, 3, and 5 years TR4 (4-6 points) : FNA if >/= 1.5 cm, follow up if 1.0 - 1.4 cm in 1, 2, 3, and 5 years TR5 (>/= 7 points) : FNA if >/= 1.0 cm, follow up if 0.5 - 0.9 cm every year for 5 years *ACR TI-RADS recommends that no more than two nodules with the highest ACR TI-RADS total point should be biopsied and no more than four nodules should be followed. Interpreted by: Lesly Verdin MD Preliminary Report By: Lesly Verdin MD Electronically signed By Lesly Verdin MD Dictated Date: 03/25/2025 11:14:23 AM Prelim Date: 03/25/2025 11:16:56 AM Sign Date: 03/25/2025 11:16:56 AM Ordering Provider: AYUSH MCNULTY [facility] VIDDHojoao 03-25-2025 Vit D 125 di-OH 80.0 pg/mL Normal 24.8-81.5 [facility] Comment on above: Result Comment: Perf ormed At: [facility] [id number] Prince Gutierrez MD Ph:[phone] Performed By: #### C AUR #### [facility] [address] [place] [id number] #### VISHUR #### [facility] [address] [place], [place] [address] .GFRon 03-20-2025 Estimated Glomerular Filtration Rate 102 ml/min/1.73sqm [facility] Comment on above: Result Comment: Stages of Chronic Kidney Disease (CKD) Stage Description eGFR(ml/min/1.73 sq.m.) CKD 1 Normal kidney function or >=90 normal kindney function with possible kidney damage (ex. Proteinuria) CKD 2 Kidney damage with mild loss 60-89 of kidney function CKD 3a Mild to moderate loss of kidney 45-59 function CKD 3b Moderate to severe loss of 30-44 of kindey function CKD 4 Severe loss of kidney function 15-29 CKD 5 Kidney failure <15 Note: (go live 2024) the eGFR calculation was updated to the 2020 CKD-EPI creatinine equation without a race factor to calculate the eGFR results. Performed By: #### C AUR #### [place] [address] #### CRUR #### [address] [address] CAIONon 03-20-2025 Calcium Ionized 1.31 mmol/L Normal 1.12-1.32 [facility] Comment on above: Performed By: #### C AUR #### [place] [address] #### CRUR #### [address] [address] CAURon 03-20-2025 Calcium [Mass/Vol] 12.0 mg/dL Normal [facility] Comment on above: Performed By: #### C AUR #### [place] [address] #### CRUR #### [address] [address] CKon 03-20-2025 CK [Catalytic activity/Vol] 68 U/L Normal 39-308 [facility] Comment on above: Performed By: #### C K #### [address] [address] CMPon 03-20-2025 Albumin Level 3.9 G/dL Normal 3.5-5.0 [facility] Comment on above: Performed By: #### C AUR #### [place] [address] #### CRUR #### [address] [address] Albumin/Globulin [Mass ratio] 1.1 {ratio} Normal 1.1-2.5 [facility] Comment on above: Performed By: #### C AUR #### [place] [address] #### CRUR #### [place] [id number] ALP [Catalytic activity/Vol] 92 U/L Normal 40-135 [facility] Comment on above: Performed By: #### C AUR #### [place] [address] #### CRUR #### [place] [address] ALT [Catalytic activity/Vol] 33 U/L Normal 16-63 [facility] Comment on above: Performed By: #### C AUR #### [place] [address] #### CRUR #### [place] [address] AST [Catalytic activity/Vol] 21 U/L Normal 10-40 [facility] Comment on above: Performed By: #### C AUR #### [place] [address] #### CRUR #### [place] [address] Bili Total 0.2 mg/dL Normal 0.2-1.0 [facility] Comment on above: Result Comment: Use of this assay is not recommended for patients undergoing treatment with eltrombopag due to the potential for falsely elevated results. Performed By: #### C AUR #### [place] [address] #### CRUR #### [place] [address] BUN/Creatinine Ratio 15 ratio Normal 7-27 [facility] Comment on above: Performed By: #### C AUR #### [place] [address] #### CRUR #### [place] [address] Calcium [Mass/Vol] 11.0 mg/dL High 8.4-10.2 [facility] Comment on above: Performed By: #### C AUR #### [place] [address] #### CRUR #### [address] [address] Chloride [Moles/Vol] 102 mmol/L Normal 98-107 [facility] Comment on above: Performed By: #### C AUR #### [place] [address] #### CRUR #### [place] [address] CO2 [Moles/Vol] 28 mmol/L Normal 22-29 [facility] Comment on above: Performed By: #### C AUR #### [place] [address] #### CRUR #### [place] [address] Creatinine [Mass/Vol] 0.91 mg/dL Normal 0.67-1.17 [facility] Comment on above: Performed By: #### C AUR #### [place] [address] #### CRUR #### [place] [address] Electrolyte Balance 6.0 mEq/L Normal 4.0-15.0 [facility] Comment on above: Performed By: #### C AUR #### [place] [address] #### CRUR #### [place] [address] Globulin 3.4 G/dL Normal 2.7-4.4 [facility] Comment on above: Performed By: #### C AUR #### [place] [address] #### CRUR #### [place] [address] Glucose [Mass/Vol] 99 mg/dL Normal 70-105 [facility] Comment on above: Performed By: #### C AUR #### [place] [address] #### CRUR #### [address] [address] Potassium [Moles/Vol] 4.2 mmol/L Normal 3.5-5.1 [facility] Comment on above: Performed By: #### C AUR #### [place] [address] #### CRUR #### [address] [address] Sodium [Moles/Vol] 136 mmol/L Normal 136-145 [facility] Comment on above: Performed By: #### C AUR #### [place] [address] #### CRUR #### [address] [address] Total Protein 7.3 G/dL Normal 6.4-8.2 [facility] Comment on above: Performed By: #### C AUR #### [place] [address] #### CRUR #### [address] [address] Urea nitrogen [Mass/Vol] 14 mg/dL Normal 7-18 [facility] Comment on above: Performed By: #### C AUR #### [place] [address] #### CRUR #### [address] [address] CRURon 03-20-2025 U Creatinine 61.9 mg/dL Normal [facility] Comment on above: Performed By: #### C AUR #### [place] [address] #### CRUR #### [address] [address] FT3on 03-20-2025 Free T3 [Mass/Vol] 2.86 pg/mL Normal 2.30-4.00 [facility] Comment on above: Performed By: #### C AUR #### [place] [address] #### CRUR #### [address] [address] FT4on 03-20-2025 Free T4 [Mass/Vol] 0.82 ng/dL Normal 0.76-1.46 [facility] Comment on above: Performed By: #### C AUR #### [place] [address] #### CRUR #### [place] [address] LABORATORYOrdered By: Esteban Venegas on 03-20-2025 Calcium (U) [Mass/Vol] 12.0 mg/dL Invalid Interpretation Code AH ADM SS LABORATORYOrdered By: SYSTEM SYSTEM on 03-20-2025 Creatinine (U) [Mass/Vol] 61.9 mg/dL Invalid Interpretation Code AO ADM SS CK [Catalytic activity/Vol] 68 U/L Normal 39 - 308 U/L AO ADM SS 25-hydroxyvitamin D3 [Mass/Vol] 26.5 ng/mL Invalid Interpretation Code AO ADM SS Comment on above: Interpretive Data: I nterpretive Values Based on Total 25(OH) Vitamin D: Deficient <20 ng/mL Insufficient 20 - <30 ng/mL Sufficient 30-100 ng/mL Albumin BCP dye [Mass/Vol] 3.9 G/dL Normal 3.5 - 5.0 G/dL AO ADM SS Albumin/Globulin [Mass ratio] 1.1 {ratio} Normal 1.1 - 2.5 ratio AO ADM SS ALP [Catalytic activity/Vol] 92 U/L Normal 40 - 135 U/L AO ADM SS ALT With P-5'-P [Catalytic activity/Vol] 33 U/L Normal 16 - 63 U/L AO ADM SS AST With P-5'-P [Catalytic activity/Vol] 21 U/L Normal 10 - 40 U/L AO ADM SS Bilirubin [Mass/Vol] 0.2 mg/dL Normal 0.2 - 1 .0 mg/dL AO ADM SS Comment on above: Interpretive Data: U se of this assay is not recommended for patients undergoing treatment with eltrombopag due to the potential for falsely elevated results. Calcium [Mass/Vol] 11.0 mg/dL High 8.4 - 10. 2 mg/dL AO ADM SS Chloride [Moles/Vol] 102 mmol/L Normal 98 - 10 7 mmol/L AO ADM SS CO2 [Moles/Vol] 28 mmol/L Normal 22 - 29 mmol/L AO ADM SS Creatinine [Mass/Vol] 0.91 mg/dL Normal 0.67 - 1.17 mg/dL AO ADM SS Electrolyte Balance 6.0 mEq/L Normal 4.0 - 15 .0 mEq/L AO ADM SS Estimated Glomerular Filtration Rate 102 ml/min/1.73sqm Invalid Interpretation Code AO Chemistry S Comment on above: Interpretive Data: Stages of Chronic Kidney Disease (CKD) Stage Description eGFR(ml/min/1.73 sq.m.) CKD 1 Normal kidney function or >=90 normal kindney function with possible kidney damage (ex. Proteinuria) CKD 2 Kidney damage with mild loss 60-89 of kidney function CKD 3a Mild to moderate loss of kidney 45-59 function CKD 3b Moderate to severe loss of 30-44 of kindey function CKD 4 Severe loss of kidney function 15-29 CKD 5 Kidney failure <15 Note: (go live 2024) the eGFR calculation was updated to the 2020 CKD-EPI creatinine equation without a race factor to calculate the eGFR results. Free T3 [Mass/Vol] 2.86 pg/mL Normal 2.30 - 4. 00 pg/mL AO ADM SS Free T4 [Mass/Vol] 0.82 ng/dL Normal 0.76 - 1. 46 ng/dL AO ADM SS Globulin 3.4 G/dL Normal 2.7 - 4.4 G/dL AO ADM SS Glucose [Mass/Vol] 99 mg/dL Normal 70 - 105 mg/dL AO ADM SS Magnesium [Mass/Vol] 2.2 mg/dL Normal 1.8 - 2 .4 mg/dL AO ADM SS Parathyrin.intact [Mass/Vol] 180.8 pg/mL High 18.5 - 88.0 pg/mL AH ADM SS Phosphate [Mass/Vol] 2.5 mg/dL Low 2.7 - 4 .5 mg/dL AO ADM SS Potassium [Moles/Vol] 4.2 mmol/L Normal 3.5 - 5.1 mmol/L AO ADM SS Protein [Mass/Vol] 7.3 G/dL Normal 6.4 - 8.2 G/dL AO ADM SS Sodium [Moles/Vol] 136 mmol/L Normal 136 - 145 mmol/L AO ADM SS Thyroglobulin Ab IA Qn 22 unit/mL Normal 15 - 60 unit/mL AH ADM SS TPO Ab IA Qn 36 unit/mL Normal 0 - 60 unit/mL AH ADM SS TSH Qn 1.36 m[IU]/L Normal 0.36 - 3.74 mcIU/mL AO ADM SS Urea nitrogen [Mass/Vol] 14 mg/dL Normal 7 - 18 mg/dL AO ADM SS Urea nitrogen/Creatinine [Mass ratio] 15 ratio Normal 7 - 27 ratio AO ADM SS LABORATORYOrdered By: Freddy Meraz on 03-20-2025 Calcium Ionized 1.31 mmol/L Normal 1.12 - 1.32 mmol/L AO Rapid Comm SS MGon 03-20-2025 Magnesium [Mass/Vol] 2.2 mg/dL Normal 1.8-2.4 [facility] Comment on above: Performed By: #### C AUR #### [place] [address] #### CRUR #### [address] [address] PHOSon 03-20-2025 Phosphate [Mass/Vol] 2.5 mg/dL Low 2.7-4.5 [facility] Comment on above: Performed By: #### C AUR #### [place] [address] #### CRUR #### [address] [address] PTHon 03-20-2025 PTH, Intact 180.8 pg/mL High 18.5-88.0 [facility] Comment on above: Performed By: #### C AUR #### [place] [address] #### CRUR #### [address] [address] THYABon 03-20-2025 anti-Thyroid Peroxidase 36 units/ml Normal 0-60 [facility] Comment on above: Performed By: #### C AUR #### [place] [address] #### CRUR #### [address] [address] Thyroglobulin Ab 22 units/ml Normal 15-60 [facility] Comment on above: Performed By: #### C AUR #### [place] [address] #### CRUR #### [address] [address] TSHon 03-20-2025 TSH Qn 1.36 m[IU]/L Normal 0.36-3.74 [facility] Comment on above: Performed By: #### C AUR #### [place] [address] #### CRUR #### [address] [address] VIDHon 03-20-2025 Vit. D 25-Hydroxy 26.5 ng/mL Normal [facility] Comment on above: Result Comment: Inte rpretive Values Based on Total 25(OH) Vitamin D: Deficient <20 ng/mL Insufficient 20 - <30 ng/mL Sufficient 30-100 ng/mL Performed By: #### C AUR #### [place] [address] #### CRUR #### [address] [address] XR SPINE CERVICAL AP/LATon 0 11-17-2024 XR SPINE CERVICAL AP/LAT ORIGINAL EXAMINATION: 4 XRAY VIEWS OF THE CERVICAL SPINE11/16/2024 1:41 pm CERVICAL SPINE 2 VIEWS COMPARISON: None HISTORY: ORDERING SYSTEM PROVIDED HISTORY: Reason for Exam: persistent pain FINDINGS: Slight anterolisthesis seen of C4 on C5. C7 is obscured by overlapping shoulders no significant disc height loss seen in the visualized cervical spine. Facet and uncovertebral joint arthrosis noted. The lung apices are clear. C1-2 relationship is maintained. IMPRESSION: 1. Mild degenerative changes. 2. C7 is obscured by overlapping shoulders. Interpreted by: Jalen Rowe MD Preliminary Report By: Jalen Rowe MD Electronically signed By Jalen Rowe MD Dictated Date: 11/17/2024 1:03:41 PM Prelim Date: 11/17/2024 1:05:56 PM Sign Date: 11/17/2024 1:05:56 PM Ordering Provider: RAJI WALLIS [facility] XR SPINE LUMBAR AP/LATon XR SPINE LUMBAR AP/LAT ORIGINAL EXAMINATION: 3 XRAY VIEWS OF THE LUMBAR SPINE11/16/2024 1:40 pm LUMBAR SPINE 2 or 3 VIEWS COMPARISON: 05/02/2017 HISTORY: ORDERING SYSTEM PROVIDED HISTORY: Reason for Exam: persistent pain FINDINGS: Lumbar vertebral body heights are normal. No spondylolisthesis mild marginal disc osteophytes seen. Disc heights are preserved. Mild facet arthropathy seen in the lower lumbar spine. IMPRESSION: Mild degenerative changes. Interpreted by: Jalen Rowe MD Preliminary Report By: Jalen Rowe MD Electronically signed By Jalen Rowe MD Dictated Date: 11/17/2024 1:00:50 PM Prelim Date: 11/17/2024 1:01:55 PM Sign Date: 11/17/2024 1:01:55 PM Ordering Provider: RAJI WALLIS [facility] XR SPINE THORACIC 2 VIEWSon 11-17-2024 XR SPINE THORACIC 2 VIEWS ORIGINAL EXAMINATION: TWO XRAY VIEWS OF THE THORACIC SPINE11/16/2024 1:41 pm COMPARISON: None. HISTORY: ORDERING SYSTEM PROVIDED HISTORY: Reason for Exam: persistent pain FINDINGS: Mild age indeterminate T7 compression deformity. The remaining vertebral body heights are maintained. No traumatic malalignment mild multilevel marginal disc osteophytes seen. IMPRESSION: Mild age indeterminate T7 compression deformity. Mild degenerative changes Interpreted by: Jalen Rowe MD Preliminary Report By: Jalen Rowe MD Electronically signed By Jalen Rowe MD Dictated Date: 11/17/2024 1:02:25 PM Prelim Date: 11/17/2024 1:03:31 PM Sign Date: 11/17/2024 1:03:31 PM Ordering Provider: RAJI WALLIS [facility] US THYROIDon 08-01-2024 US THYROID ORIGINAL EXAMINATION: ULTRASOUND OF THE THYROID WITH COLOR DOPPLER FLOW [id number]/10/2024 5:05 pm Ultrasound Thyroid All images were recorded and archived. COMPARISON: October 13, 2015, on [facility] June 27, 2024 HISTORY: ORDERING SYSTEM PROVIDED HISTORY: Reason for Exam: Thyroid nodule on NM study, FINDINGS: Size right thyroid lobe: 5.2 x 1.7 x 1.6 cm Size left thyroid lobe: 6.0 x 2.2 x 2.3 cm Size isthmus: 0.6 cm Texture: Homogeneous Estimated total number of nodules greater than or equal to 1 cm: 1 Nodule#: # 1: In the left lower lobe there is a nodule measuring 2.0 x 1.5 x 1.0 cm. The nodule is solid, hyperechoic, taller than wide, with irregular margins and no echogenic foci. This nodule is not seen in 2016. ACR Total Points: >/= 7; ACR TI-RADS risk category: TR5 - highly suspicious nodule. IMPRESSION: Enlarged left thyroid lobe. 1. Nodule 1: ACR TI-RADS 2017 Category 5. Recommend: Ultrasound-guided fine needle aspiration ACR TI-RADS 2017 Recommendations: TR1(0 points) : No FNA or follow up TR2 (2 points) : No FNA or follow up TR3 (3 points) : FNA if >/= 2.5 cm, follow up if 1.5 - 2.4 cm in 1, 3, and 5 years TR4 (4-6 points) : FNA if >/= 1.5 cm, follow up if 1.0 - 1.4 cm in 1, 2, 3, and 5 years TR5 (>/= 7 points) : FNA if >/= 1.0 cm, follow up if 0.5 - 0.9 cm every year for 5 years *ACR TI-RADS recommends that no more than two nodules with the highest ACR TI-RADS total point should be biopsied and no more than four nodules should be followed. I have personally reviewed the images of this examination and agree with the resident's findings and interpretation. Interpreted by: Jalen Romo DO Preliminary Report By: Raymond Dorado MD Electronically signed By Jalen Romo DO Dictated Date: 08/01/2024 1:11:57 PM Prelim Date: 08/01/2024 1:58:00 PM Sign Date: 08/01/2024 1:58:00 PM Ordering Provider: RAJI WALLIS [facility] NM PARATHYROID STUDYon 06-29 NM PARATHYROID STUDY ORIGINAL EXAMINATION: PARATHYROID [id number]/6/2024 4:25 pm TECHNIQUE: 30 mCi of Tc 99m Sestamibi was injected. Planar imaging at 15 minutes and 2 hours was performed. SPECT CT imaging was performed as well. COMPARISON: Ultrasound thyroid October 13, 2015 HISTORY: Reason for Exam: significantly elevated PTH and calcium FINDINGS: Focal uptake at the left thyroid lobe is suggesting underlying thyroid nodule. There is no focus of abnormal uptake in the neck or anterior mediastinum to suggest a parathyroid adenoma. There is normal physiologic uptake in the heart, thyroid, and salivary glands. IMPRESSION: Focal uptake suggesting the left thyroid lobe nodule. Please correlate with thyroid ultrasound. No scintigraphic localization of extrathyroid parathyroid adenoma. Interpreted by: Marcy Stephens MD Preliminary Report By: Marcy Stephens MD Electronically signed By Marcy Stephens MD Dictated Date: 06/29/2024 3:53:17 PM Prelim Date: 06/29/2024 4:23:32 PM Sign Date: 06/29/2024 4:23:32 PM Ordering Provider: RAJI WALLIS [facility] MAIN LABORATORYOrdered By: SYSTEM SYSTEM on 06-04-2024 Free T4 [Mass/Vol] 0.97 ng/dL Normal 0.76 - 1. 46 ng/dL AO ADM SS Magnesium [Mass/Vol] 2.0 mg/dL Normal 1.8 - 2 .4 mg/dL AO ADM SS TSH Qn 1.01 m[IU]/L Normal 0.36 - 3.74 mcIU/mL AO ADM SS LABORATORYOrdered By: SYSTEM SYSTEM on 05-29-2024 Calcium [Mass/Vol] 11.3 mg/dL High 8.4 - 10. 2 mg/dL AO ADM SS Parathyrin.intact [Mass/Vol] 255.9 pg/mL High 18.5 - 88.0 pg/mL ADM SS LABORATORYOrdered By: SYSTEM SYSTEM on 05-04-2024 25-hydroxyvitamin D3 [Mass/Vol] 19.6 ng/mL Invalid Interpretation Code AO ADM SS Comment on above: Interpretive Data: I nterpretive Values Based on Total 25(OH) Vitamin D: Deficient <20 ng/mL Insufficient 20 - <30 ng/mL Sufficient 30-100 ng/mL Albumin BCP dye [Mass/Vol] 3.8 G/dL Normal 3.5 - 5.0 G/dL AO ADM SS Albumin/Globulin [Mass ratio] 1.4 {ratio} Normal 1.1 - 2.5 ratio AO ADM SS ALP [Catalytic activity/Vol] 89 U/L Normal 40 - 135 U/L AO ADM SS ALT With P-5'-P [Catalytic activity/Vol] 47 U/L Normal 16 - 63 U/L AO ADM SS AST With P-5'-P [Catalytic activity/Vol] 34 U/L Normal 10 - 40 U/L AO ADM SS Basophils (Bld) [#/Vol] 0.1 103/mcL Normal 0.0 - 0.2 10^3/mcL AO Workflow SS Basophils/100 WBC (Bld) 1.3 % Normal 0.0 - 2.5 % AO Workflow SS Bilirubin [Mass/Vol] 0.3 mg/dL Normal 0.2 - 1 .0 mg/dL AO ADM SS Comment on above: Interpretive Data: U se of this assay is not recommended for patients undergoing treatment with eltrombopag due to the potential for falsely elevated results. Calcium [Mass/Vol] 11.1 mg/dL High 8.4 - 10. 2 mg/dL AO ADM SS Chloride [Moles/Vol] 101 mmol/L Normal 98 - 10 7 mmol/L AO ADM SS CO2 [Moles/Vol] 35 mmol/L High 22 - 29 mmol/L AO ADM SS Creatinine [Mass/Vol] 0.97 mg/dL Normal 0.70 - 1.30 mg/dL AO ADM SS Comment on above: Interpretive Data: T esting performed on Siemens Dimension EXL analyzer using a modified kinetic Deshawn technique. Electrolyte Balance 1.0 mEq/L Low 4.0 - 15 .0 mEq/L AO ADM SS Eosinophil, Absolute 0.2 103/mcL Normal 0.0 - 0 .4 10^3/mcL AO Workflow SS Eosinophils/100 WBC (Bld) 3.1 % Normal 0.0 - 7.0 % AO Workflow SS Erythrocyte distribution width (RBC) [Ratio] 14.4 % Normal 11.5 - 14.5 % AO Workflow SS GFR/1.73 sq M.predicted among blacks MDRD (S/P/Bld) [Vol rate/Area] 99 ml/min/1.73sqm Invalid Interpretation Code AO Chemistry S Comment on above: Interpretive Data: GFR Population mean for , Non- Americans Ages 20-29 = 116 mL/min/1.73 sq.m. Ages 30-39 = 107 mL/min/1.73 sq.m. Ages 40-49 = 99 mL/min/1.73 sq.m. Ages 50-59 = 93 mL/min/1.73 sq.m. Ages 60-69 = 85 mL/min/1.73 sq.m. Ages 70+ = 75 mL/min/1.73 sq.m. Chronic Kidney Disease: Less than 60 mL/min/1.73 square meters End Stage Renal Disease: Less than 15 mL/min/1.73 square meters GFR/1.73 sq M.predicted among non-blacks MDRD (S/P/Bld) [Vol rate/Area] 82 ml/min/1.73sqm Invalid Interpretation Code AO Chemistry S Comment on above: Interpretive Data: GFR Population mean for , Non- Americans Ages 20-29 = 116 mL/min/1.73 sq.m. Ages 30-39 = 107 mL/min/1.73 sq.m. Ages 40-49 = 99 mL/min/1.73 sq.m. Ages 50-59 = 93 mL/min/1.73 sq.m. Ages 60-69 = 85 mL/min/1.73 sq.m. Ages 70+ = 75 mL/min/1.73 sq.m. Chronic Kidney Disease: Less than 60 mL/min/1.73 square meters End Stage Renal Disease: Less than 15 mL/min/1.73 square meters Globulin 2.7 G/dL Invalid Interpretation Code AO ADM SS Glucose [Mass/Vol] 81 mg/dL Normal 70 - 105 mg/dL AO ADM SS Hematocrit (Bld) [Volume fraction] 46.3 % Normal 42.0 - 52.0 % AO Workflow SS Hemoglobin (Bld) [Mass/Vol] 15.9 G/dL Normal 14.0 - 18.0 G/dL AO Workflow SS Lymphocytes (Bld) [#/Vol] 2.8 103/mcL Normal 0.8 - 3.9 10^3/mcL AO Workflow SS Lymphocytes/100 WBC (Bld) 43.0 % Normal 10.0 - 50.0 % AO Workflow SS MCH (RBC) [Entitic mass] 34.4 pg High 27.0 - 31.2 pg AO Workflow SS MCHC 34.4 G/dL Normal 31.8 - 35.4 G/dL AO Workflow SS MCV (RBC) [Entitic vol] 100.2 fL High 80.0 - 94.0 fL AO Workflow SS Monocytes (Bld) [#/Vol] 0.6 103/mcL Normal 0.2 - 1.0 10^3/mcL AO Workflow SS Monocytes/100 WBC (Bld) 9.6 % Normal 1.7 - 13.0 % AO Workflow SS Neutrophils (Bld) [#/Vol] 2.8 103/mcL Low 2.9 - 6.2 10^3/mcL AO Workflow SS Neutrophils/100 WBC (Bld) 43.0 % Normal 37.0 - 80.0 % AO Workflow SS Platelet mean volume (Bld) [Entitic vol] 8.3 fL Normal 7.4 - 10.4 fL AO Workflow SS Platelets (Bld) [#/Vol] 279 103/mcL Normal 130 - 400 10^3/mcL AO Workflow SS Potassium [Moles/Vol] 4.7 mmol/L Normal 3.5 - 5.1 mmol/L AO ADM SS Prostate specific Ag [Mass/Vol] 1.86 ng/mL Normal 0.00 - 4.00 ng/mL AO ADM SS Protein [Mass/Vol] 6.5 G/dL Normal 6.4 - 8.2 G/dL AO ADM SS RBC (Bld) [#/Vol] 4.62 106/mcL Normal 4.04 - 6.1 3 10^6/mcL AO Workflow SS Sodium [Moles/Vol] 137 mmol/L Normal 136 - 145 mmol/L AO ADM SS Urea nitrogen [Mass/Vol] 7 mg/dL Normal 7 - 18 mg/dL AO ADM SS Urea nitrogen/Creatinine [Mass ratio] 7 ratio Normal 7 - 27 ratio AO ADM SS WBC (Bld) [#/Vol] 6.6 103/mcL Normal 4.6 - 10.8 10^3/mcL AO Workflow SS LABORATORYOrdered By: Naveed Ross on 05-04-2024 Cholesterol [Mass/Vol] 148 mg/dL Normal 0 - 200 mg/dL AO ADM SS Comment on above: Interpretive Data: C holesterol Reference Interval: Less than 200 Desirable 200-239 Borderline high risk 240 and above High risk Cholesterol in HDL [Mass/Vol] 54 mg/dL Normal 40 - 60 mg/dL AO ADM SS Cholesterol in LDL [Mass/Vol] 70 mg/dL Normal 0 - 130 mg/dL AO ADM SS Triglyceride [Mass/Vol] 122 mg/dL Normal 0 - 150 mg/dL AO ADM SS Comment on above: Interpretive Data: T riglyceride Reference Interval: Less than 150 Normal 150-199 Borderline high risk 200-499 High risk 500 or higher Very high risk CR Foot Complete 3+ Views [facility] 03-05-2022 CR Foot Complete 3+ Views Right Patient Name: MARIBEL LANGFORD Diagnostic Radiology ACCESSION EXAM DATE/TIME PROCEDURE ORDERING PROVIDER [id number] 03/05/2022 13:28 EDT CR Foot Complete 3+ [id number] -GARCIA, GAIL Views Right CPT code 64481 Reason For Exam (CR Foot Complete 3+ Views Right) PAIN Report RIGHT FOOT, WEIGHTBEARING, 3 VIEWS: INDICATION: Right foot pain COMPARISON: No previous studies are available for comparison. Weightbearing frontal, oblique and lateral views of the right foot were obtained. The bone density is diminished, similar appearance to the prior study. Again seen are signs of a prior Lisfranc fracture with persistent widening of the Lisfranc interval. There has been some degree of progression of healing of the 2nd, 3rd and 4th metatarsal bases with mild displacement of the 3rd metatarsal base. IMPRESSION: There is stable appearance of the fractures with some degree of progression of healing of the fractures of the 2nd, 3rd and 4th metatarsals. Report Dictated on Final Dictating Physician: DO WEBB ALFRED Signed Date and Time: 03/08/2022 10:29 am Signed by: DO WEBB ALFRED Transcribed Date and Time: 03/08/2022 10:30 Normal [facility] CR Foot Complete 3+ Views [facility] 01-15-2022 CR Foot Complete 3+ Views Right Patient Name: MARIBEL LANGFORD Diagnostic Radiology ACCESSION EXAM DATE/TIME PROCEDURE ORDERING PROVIDER [id number] 01/15/2022 12:50 EDT CR Foot Complete 3+ [id number] -KAEHLER, GAIL Views Right CPT code 20027 Reason For Exam (CR Foot Complete 3+ Views Right) Follow up Report RIGHT FOOT CLINICAL INDICATION: Pain AP, lateral, and oblique plain film views of the right foot were obtained. COMPARISON: 12/04/2021. FINDINGS: Decreased osseous mineralization limits the exam/evaluation. Persistent widening of Lisfranc interval concerning for underlying Lisfranc injury. Stable appearance of the unhealed fractures involving the second third and fourth metatarsal bases with stable displacement of the third metatarsal base. No interval or additional fracture identified. Associated soft tissue swelling about the forefoot and midfoot. IMPRESSION: Persistent widening of Lisfranc interval concerning for underlying Lisfranc injury. Stable appearance of the unhealed fractures involving the second third and fourth metatarsal bases with stable displacement of the third metatarsal base. No interval or additional fracture identified. Report Dictated on Final Dictating Physician: MD LUGO JASON Signed Date and Time: 01/18/2022 6:57 pm Signed by: MD LUGO JASON Transcribed Date and Time: 01/18/2022 6:58 Normal [facility] CR Foot Complete 3+ Views Ollie leija 12-04-2021 CR Foot Complete 3+ Views Right [id number] ACCESSION EXAM DATE/TIME PROCEDURE ORDERING PROVIDER [id number] 12/04/2021 11:04 EDT CR Foot Complete 3+ [id number] -GARCIA, GAIL Views Right CPT code 87826 Reason For Exam (CR Foot Complete 3+ Views Right) PAIN Report RIGHT FOOT CLINICAL INDICATION: Pain AP, lateral, and oblique plain film views of the right foot were obtained. COMPARISON: None. Widening of Lisfranc interval concerning for underlying Lisfranc injury. Subacute fractures of the second third and fourth metatarsal bases with mild displacement of the third metatarsal base. Possible fractures versus significant osteopenia of the second and third metatarsal heads. Possible fracture of the base of the first metatarsal. Associated soft tissue swelling about the forefoot and midfoot. IMPRESSION: Widening of Lisfranc interval concerning for underlying Lisfranc injury. Subacute fractures of the second third and fourth metatarsal bases with mild displacement of the third metatarsal base. Possible fractures versus significant osteopenia of the second and third metatarsal heads. Possible fracture of the base of the first metatarsal. Further evaluation with MRI is recommended. Diffuse osteopenia. Report Dictated on Final Dictating Physician: MD EASTMAN NEIL Signed Date and Time: 12/05/2021 1:09 pm Signed by: MD EASTMAN NEIL Transcribed Date and Time: 12/05/2021 1:10 [facility] Vital Signs Date Time Vital Sign Value Performing Clinician Facility 05-31-2025 09:50-0400 Body height 175.26 cm Raji Balchris [employer]SE[employer]OR-C Work Phone: [facility] 05-31-2025 09:50-0400 Body mass index (BMI) [Ratio] 22.3 kg/m2 Raji Baltes S[employer]UAL A[employer]SE COUNSELLOR-C Work Phone: [facility] 05-31-2025 09:50-0400 Body weight 68.49 kg Raji Balchris S[employer]UAL ABUSE COUNSELLOR-C Work Phone: [facility] 05-31-2025 09:50-0400 Diastolic blood pressure 91 mm[Hg] Raji Balchris SEXUAL ABUSE COUNSELLOR-C Work Phone: [facility] 05-31-2025 09:50-0400 Heart rate 115 /min Raji Baltes S[employer] A[employer]SE COUNSELLOR-C Work Phone: [facility] 05-31-2025 09:50-0400 Respiratory rate 17 /min Raji Balchris S[employer]UAL A[employer]SE COUNSELLOR-C Work Phone: [facility] 05-31-2025 09:50-0400 SaO2% (BldA) [Mass fraction] 98 % Raji Baltes S[employer] ABUSE COUNSELLOR-C Work Phone: [facility] 05-31-2025 09:50-0400 Systolic blood pressure 137 mm[Hg] Raji Baltes S[employer]UAL ABUSE COUNSELLOR-C Work Phone: [facility] 05-29-2025 20:24-04[address] Cuff Size DR AKI WILLIAMSON MD [facility] 05-29-2025 20:24-[address] AKI WILLIAMSON MD [facility] 05-29-2025 20:24-[address] AKI WILLIAMSON MD [facility] 05-29-2025 20:24-0400 Body temperature 97.16 [degF] DR AKI WILLIAMSON MD [facility] 05-29-2025 20:24-0400 Diastolic Blood Pressure Non-Invasive 87 mm[Hg] DR AKI WILLIAMSON MD [facility] 05-29-2025 20:24-0400 Heart rate 104 /min DR AKI WILLIAMSON MD [facility] 05-29-2025 20:24-0400 Respiratory rate 16 /min DR AKI WILLIAMSON MD [facility] 05-29-2025 20:24-0400 Systolic Blood Pressure Non-Invasive 128 mm[Hg] DR AKI WILLIAMSON MD [facility] 03-19-2024 22:52-0400 Blood Pressure Location NIDAL CHOUJAA DO [facility] 03-19-2024 22:52-0400 Blood Pressure Method NIDAL CHOUJAA DO [facility] 03-19-2024 22:52-0400 Body height 172.7 cm NIDAL CHOUJAA DO [facility] 03-19-2024 22:52-0400 Body temperature 97.7 [degF] NIDAL CHOUJAA DO [facility] 03-19-2024 22:52-0400 Body weight 70.5 kg NIDAL CHOUJAA DO [facility] 03-19-2024 22:52-0400 Diastolic Blood Pressure Non-Invasive 81 mm[Hg] NIDAL CHOUJAA DO [facility] 03-19-2024 22:52-0400 Heart rate 99 /min NIDAL CHOUJAA DO [facility] 03-19-2024 22:52-0400 Respiratory rate 16 /min NIDAL CHOUJAA DO [facility] 03-19-2024 22:52-0400 Systolic Blood Pressure Non-Invasive 118 mm[Hg] NIDAL CHOUJAA DO [facility] 08-03-2021 11:11-0500 Body height 172 cm MORTEZA BADILLO MD [facility] 08-03-2021 11:11-0500 Body temperature 98.42 [degF] MORTEZA BDAILLO MD [facility] 08-03-2021 11:11-0500 Body weight 68.2 kg MORTEZA BADILLO MD [facility] 08-03-2021 11:11-0500 Diastolic blood pressure 109 mm[Hg] MORTEZA BADILLO MD [facility] 08-03-2021 11:11-0500 Heart rate 94 /min MORTEZA BADILLO MD [facility] 08-03-2021 11:11-0500 Respiratory rate 16 /min MORTEZA BADILLO MD [facility] 08-03-2021 11:11-0500 Systolic blood pressure 153 mm[Hg] MORTEZA BADILLO MD [facility] Encounters Encounter Date Encounter Type Care Provider Facility Start: 06-19-2025 ambulatory Abena Guzman Facility: [facility] Start: 06-14-2025 End: 06-14-2025 ambulatory RAJI WALLIS Facility:[facility] Start: 06-14-2025 End: 06-14-2025 Patient encounter procedure AYUSH MCNULTY MD [facility] Start: 05-31-2025 End: 05-31-[address] Abena Guzman MD -[facility] Work Phone: Start: 05-31-2025 End: 05-31-2025 ambulatory Raji Wallis S[employer] A[employer]SE COUNSELLOR-C Work Phone: -[facility] Start: 05-29-2025 End: 05-29-2025 Emergency department patient visit DR AKI WILLIAMSON MD [facility] Start: 05-28-2025 ambulatory RAJI WALLIS Facility:[facility] Start: 04-18-2025 End: 04-18-2025 ambulatory AYUSH MCNULTY MD Facility:[facility] Start: 04-18-2025 End: 04-18-2025 Patient encounter procedure AYUSH MCNULTY MD [facility] Start: 03-29-2025 End: 03-29-2025 ambulatory BALTA COBOS DO Facility:[facility] Start: 03-29-2025 End: 03-29-2025 Patient encounter procedure BALTA COBOS DO [facility] Start: 03-25-2025 End: 03-25-2025 ambulatory AYUSH MCNULTY MD Facility:[facility] Start: 03-25-2025 End: 03-25-2025 Patient encounter procedure AYUSH MCNULTY MD [facility] Start: 03-20-2025 End: 03-20-2025 ambulatory RAJI BALTES Facility:[facility] Start: 03-20-2025 End: 03-20-2025 Patient encounter procedure AYUSH MCNULTY MD [facility] Start: 03-12-2025 End: 03-12-2025 ambulatory BALTA COBOS DO Facility:A Start: 03-12-2025 End: 03-12-2025 Minor Procedure BALTA COBOS DO [facility] Start: 12-20-2024 ambulatory RAJI BALTES Facility:Michelle [facility] Start: 11-16-2024 End: 11-16-2024 ambulatory RAJI BALTES Facility:[facility] Start: 11-06-2024 End: 12-21-2024 ambulatory RAJI BALTES Facility:[facility] Start: 11-06-2024 End: 12-21-2024 Physical therapy management RAJI BALTES BILLING REP-[employer]ONECUTTER [facility] Start: 07-31-2024 End: 07-31-2024 ambulatory RAJI BALTES Facility:[facility] Start: 07-31-2024 End: 07-31-2024 Patient encounter procedure RAJI BALTES BILLING REP-[employer]ONECUTTER [facility] Start: 06-27-2024 End: 06-27-2024 ambulatory RAJI BALTES BILLING REP-STONECUTTER Facility:A Start: 06-27-2024 End: 06-27-2024 Patient encounter procedure RAJI WALLIS BILLING REP-STONECUTTER [facility] Start: 06-15-2024 ambulatory RAJI WALLIS BILLING REP-STONECUTTER Fa cility:A Start: 06-04-2024 End: 06-04-2024 Patient encounter procedure RAJI WALLIS BILLING REP-STONECUTTER [facility] Start: 05-29-2024 End: 05-29-2024 Patient encounter procedure RAJI WALLIS BILLING REP-STONECUTTER [facility] Start: 05-04-2024 End: 05-04-2024 Patient encounter procedure RAJI WALLIS BILLING REP-STONECUTTER [facility] Start: 03-19-2024 End: 03-19-2024 Emergency department patient visit LAURI GARCIA DO [facility] Start: 03-05-2022 End: 03-05-2022 Subsequent hospital visit by physician Gail KILPATRICK Work Phone: [facility] Comment on above: Closed displaced fra cture of third metatarsal bone of right foot, initial encounter Start: 12-04-2021 End: 12-04-2021 Subsequent hospital visit by physician Gail KILPATRICK Work Phone: [facility] Comment on above: Right foot pain Start: 11-09-2021 End: 11-09-2021 Patient encounter procedure BLANCA GONZALES BILLING REP-STONECUTTER [facility] Start: 08-03-2021 End: 08-03-2021 Emergency department patient visit MORTEZA BADILLO MD [facility] Start: 11-14-2020 End: 11-14-2020 Discharged Recurring [facility]-Immunizations Plan of Treatment Date Care Activity Detail Author Start: 05-31-2025 24 hour urine calciu m output measurement [facility] Start: 04-22-2022 Influenza vaccination [facility] Start: 01-08-2022 End: 01-08-2022 Patient encounter procedure 01/08/2022 Office Visit Orthopedic Surgery Balta Cheng MD [address] [facility] [address] [place] [address] [facility] [place] Start: 2018 Screening for malign ant neoplasm of colon [facility] Start: 2013 Lipid panel [facility] Start: 1992 DTaP/Tdap/Td vaccine (1 - Tdap) DTaP/Tdap/Td vaccine (1 - Tdap) [facility] Start: 1991 Hepatitis C screening Hepatitis C sc reen [facility] Start: 1988 HIV screening HIV screen [facility] Start: 1985 Depression Screen Depression Screen [facility] Start: 1979 Pneumococcal 0-64 ye ars Vaccine (1 - PCV) Pneumococcal 0-64 years Vaccine (1 - PCV) [facility] Start: 1973 Hepatitis C screening Hepatitis C sc reen [facility] End: 12-04-2021 XR FOOT RIGHT (MIN 3 VIEWS[facility] Work Phone: Comment on above: 1 Occurrences starti ng 12/04/2021 until 12/04/2021 End: 03-05-2022 XR FOOT RIGHT (MIN 3 VIEWS) [facility] Work Phone: Comment on above: 1 Occurrences starti ng 03/05/2022 until 03/05/2022 Immunizations Immunization Date Immunization Notes Care Provider Wolf mello 09-23-2021 COVID-19, mRNA, LNP- S, PF, 30 mcg/0.3 mL dose; Translations: [Pfizer-BioNTech COVID-19 Vaccine] BLANCA WILLISBURG BILLING REP-STONECUTTER [facility] 12-05-2020 SARS-CoV-2 mRNA (tozinameran) vaccine [facility] BILL[facility] REP[facility]STONEC[facility]TER [facility] Comment on above: Result Comment: 2020: [id number] 11-14-2020 SARS-CoV-2 mRNA (tozinameran) vaccine [facility] BILLING REP-STONECUTTER [facility] Comment on above: Result Comment: 2020: [id number] Payers Date Payer Category Payer Self-pay 2024 Private Health Insurance [id number] 2023 Medicaid [id number] 2023 Private Health Insurance [id number] 1975 Unknown [id number] 2.16.8 40.1.469295.3.579.2. 1975 Unknown [id number] .16. 840.1.082125.3.579.2. 1975 Unknown [id number] .16.8 40.1.059327.3.579.2. 1975 Unknown [id number] .16.8 40.1.865533.3.579.2. 1975 Unknown [id number] 2.16. 840.1.548914.3.579.2. 1975 Unknown [id number] 2.16. 840.1.200844.3.579.2. 1973 Unknown [id number] 2.16. 840.1.422661.3.579.2. 1973 Unknown [id number] 2.16. 840.1.636800.3.579.2.627 1975 Unknown [id number] 2.16. 840.1.718778.3.579.2.627 1975 Unknown [id number] 2.16. 840.1.817941.3.579.2.627 1975 Unknown [id number] 2.16. 840.1.725708.3.579.2.627 1973 Unknown [id number] 2.16. 840.1.333910.3.579.2.627 1975 Unknown [id number] 2.16.8 40.1.388192.3.579.2.62 1975 Unknown [id number] 2.16.8 40.1.380494.3.579.2.627 1975 Unknown [id number] 2.16.8 40.1.940534.3.579.2.627 1975 Unknown [id number] 2.16.8 40.1.828746.3.579.2.627 Self-pay [id number] Unknown [id number] 2.16.8 40.1.666025.3.579.2.462 Unknown [id number] 2.16.8 40.1.232684.3.579.2.462 Social History Date Type Detail Facility Tobacco smoking status WYIS Unknown if ever smoked [facility] Work Phone: Start: 1975 Sex Assigned At Male [facility] Start: 08-03-2021 Heavy tobacco smoker (finding) [facility] Sex Assigned At [facility] Start: 12-04-2021 End: 05-31-2025 Tobacco smoking status WYIS Smokes tobacco daily [facility] Work Phone: Start: 12-04-2021 Tobacco use and exposure Smokeless tobacco non-user [facility] Work Phone: Start: 1975 Sex Assigned At Not on file S [facility] Work Phone: Start: 11-24-2021 End: 12-04-2021 Exposure to SARS-CoV-2 (event) Not sure [facility] Start: 12-19-2024 End: 06-11-2025 Tobacco smoking status Light tobacco smoker (finding) [facility] Start: 01-06-2015 Sex Male (finding) [facility] Start: 05-29-2025 Not applicable (qualifier value) [facility] Sex Male [facility] Functional Status Date Assessment Result Facility 05-29-2025 [facility] 05-29-2025 Functional Status Ambulation in [place], Ambulation in Room [facility] 03-19-2024 Functional Status ID band on, Allergy Band on, Call device within reach, Bed in low position, Wheels locked, Upper/Half-Length side-rails up, personal items within reach, Bedside Cart Locked [facility] Mental Status Date Assessment Result Facility 05-29-2025 Mental Status Oriented x 4 [facility] 03-19-2024 Mental Status Oriented x 4 [facility] Clinical Notes 08-03-2021 to 05-31-2025 Note Date & Type Note Facility 05-31-2025 Progress note [facility] 05-29-2025 Hospital Discharge instructions Patient Education 05/29/2025 20:32:07 Dental Pain Dental Pain A crack or cavity in a tooth can cause tooth pain. This is because the crack or cavity exposes the sensitive inner area of the tooth. An infection in the gum or the root of the tooth can cause pain and swelling. The pain is often made worse when you drink hot or cold beverages. It can also be worse when you bite on hard foods. Pain may spread from the tooth to your ear or the area of the jaw on the same side. Home care Follow these tips when caring for yourself at home: Don't have hot and cold foods and drinks. Your tooth may be sensitive to changes in temperature. Use toothpaste made for sensitive teeth. Osborne gently up and down instead of sideways. Brushing sideways can wear away root surfaces if they are exposed. If your tooth is chipped or cracked, or if there is a large open cavity, put oil of cloves directly on the tooth to relieve pain. You can buy oil of cloves at drugstores. Some pharmacies carry an dviq-vwf-tugtckg toothache kit. This contains a paste that you can put on the exposed tooth to make it less sensitive. Put a cold pack on your jaw over the sore area to help reduce pain. You may use kjur-lhf-qpoegbb medicine to ease pain, unless your doctor prescribed another medicine. If you have chronic liver or kidney disease, talk with your healthcare provider before using acetaminophen or ibuprofen. Also talk with your provider if you ve had a stomach ulcer or GI bleeding. If you have signs of an infection, you will be given an antibiotic. Take it as directed. Follow-up care Follow up with your dentist, or as advised. Your pain may go away with the treatment given today. But only a dentist can fully look at and treat the cause of your pain. This will keep the pain from coming back. Call 911 Call 911 if any of these occur: Unusual drowsiness Headache or stiff neck Weakness or fainting Difficulty swallowing or breathing When to seek medical advice Call your health care provider right away if any of these occur: Your face becomes swollen or red Pain gets worse or spreads to your neck Fever of 100.4 F (38.0 C) or higher, or as directed by your healthcare provider Pus drains from the tooth [id number] [employer]. [address] [place] [address]. All rights reserved. This information is not intended as a substitute for professional medical care. Always follow your healthcare professional's instructions. Follow Up Care 05/29/2025 20:19:47 With:Take antibiotics as prescribed. You may use naproxen for pain. Do not take this with ibuprofen or other NSAIDs. Follow-up with your dentist, return if any worsening or concerning symptoms. Address:Unknown When:2-4 days [facility] 05-29-2025 Note Discharge Instructions Thank you for allowing [facility] to assist you with your healthcare needs. The following is important discharge information regarding your hospital visit. Diagnosis from Today's Visit Pain due to dental caries What to Do Next Instructions from Your Care Team No qualifying data available. Post Acute Orders No qualifying data available. You Need to Schedule the Following Appointments Follow Up with Take antibiotics as prescribed. You may use naproxen for pain. Do not take this with ibuprofen or other NSAIDs. Follow-up with your dentist, return if any worsening or concerning symptoms. When:Within 2-4 days Allergies Vicodin aspirin erythromycin penicillin Medications Please ask your primary doctor or pharmacist before taking any other medication not listed, including over the counter drugs, herbal medications, vitamins and or supplements as they may interact with your home medications. What How Much When Why Instructions Last Dose New doxycycline (doxycycline hyclate 100 mg oral tablet) 1 tab(s) by mouth Two (2) times a day Duration: 7 Days Printed Prescription New naproxen (naproxen 500 mg oral tablet) 1 tab(s) by mouth Two (2) times a day Duration: 10 Days Printed Prescription Unchanged acetaminophen (acetaminophen 500 mg oral tablet) 2 tab(s) by mouth Three (3) times a day as needed for pain or fever Unchanged amitriptyline (amitriptyline 25 mg oral tablet) 1 tab(s) by mouth Daily at bedtime Tension headache Duration: 90 Days Unchanged cholecalciferol (Vitamin D3 50 mcg (2000 intl units) oral capsule) 1 tab(s) by mouth Every day Vitamin D deficiency Duration: 90 Days Unchanged tiZANidine (tiZANidine 2 mg oral capsule) 1 cap by mouth Three (3) times a day as needed for as needed for muscle spasm Back tightness Duration: 10 Days Please take this list to your next doctor s visit. Bring all medications you take, including over the counter medications, herbals and other supplements with you to your doctor s visit. Patients and families are reminded to discard old lists and to update any records with all medication providers or retail pharmacies. Education Materials Dental Pain A crack or cavity in a tooth can cause tooth pain. This is because the crack or cavity exposes the sensitive inner area of the tooth. An infection in the gum or the root of the tooth can cause pain and swelling. The pain is often made worse when you drink hot or cold beverages. It can also be worse when you bite on hard foods. Pain may spread from the tooth to your ear or the area of the jaw on the same side. Home care Follow these tips when caring for yourself at home: Don't have hot and cold foods and drinks. Your tooth may be sensitive to changes in temperature. Use toothpaste made for sensitive teeth. Osborne gently up and down instead of sideways. Brushing sideways can wear away root surfaces if they are exposed. If your tooth is chipped or cracked, or if there is a large open cavity, put oil of cloves directly on the tooth to relieve pain. You can buy oil of cloves at [employer]. Some pharmacies carry an koph-xrt-ldnsmue toothache kit. This contains a paste that you can put on the exposed tooth to make it less sensitive. Put a cold pack on your jaw over the sore area to help reduce pain. You may use onlj-rbc-wrihcrz medicine to ease pain, unless your doctor prescribed another medicine. If you have chronic liver or kidney disease, talk with your healthcare provider before using acetaminophen or ibuprofen. Also talk with your provider if you ve had a stomach ulcer or GI bleeding. If you have signs of an infection, you will be given an antibiotic. Take it as directed. Follow-up care Follow up with your dentist, or as advised. Your pain may go away with the treatment given today. But only a dentist can fully look at and treat the cause of your pain. This will keep the pain from coming back. Call 911 Call 911 if any of these occur: Unusual drowsiness Headache or stiff neck Weakness or fainting Difficulty swallowing or breathing When to seek medical advice Call your health care provider right away if any of these occur: Your face becomes swollen or red Pain gets worse or spreads to your neck Fever of 100.4 F (38.0 C) or higher, or as directed by your healthcare provider Pus drains from the tooth [phone] [employer]. [address] [place] [address], [place] [address]. All rights reserved. This information is not intended as a substitute for professional medical care. Always follow your healthcare professional's instructions. Additional Information VACCINATE! IT SAVES LIVES! Members of the community who have not yet received the COVID-19 vaccine and would like to receive it can visit one of [facility] vaccine clinics. There are many vaccine clinic locations within the [facility]. For locations and available times, please visit www.gettheot.coronavirus.[place].go v/. It is important to note that some COVID mobile vaccine clinics are held outdoors and may be canceled in rainy or stormy conditions. To learn more about pediatric vaccinations (ages 5-11), we invite you to visit the [employer] webpage. https://www.akAvensos.org/pag es/7075-Jfqay-Rvoqpoxbbnu-Frequent mh-Kzxww-Ytuqqtxui.html To learn more about the COVID-19 vaccine, we invite you to visit the CDC website for a list of frequently asked questions. https://www.cdc.gov/coronavirus/ 19-ncov/vaccines/faq.html [facility] Patient Portal Access Instructions: Stay connected with your healthcare team and access your personal medical information anytime with the [facility] Patient Portal. If you would like a full copy of your medical records please contact the [facility] Medical Records Department Tuesday through Tuesday between 8a.m. and 4:30p.m. Please follow the directions below to access the portal: 1.Access the email account you provided upon registration to the hospital.2.Look for an invitation email from [facility].3.Open the email and access the invitation link: Accept Invitation to [facility]4.Fill in the required murphy to create your account. To access your account, visit [employer] or scan the QR code above. Click the blue button labeled Access Patient Portal and then log in with the username and password that you created in the steps above. You can then view a summary of results, a summary of your visits, and the ability to download your summaries to your computer or send the information securely to a physician. Remember that your healthcare information is confidential, so carefully consider who you will allow to register on the [facility] Patient Portal for access to your information. You can also access the [facility] Patient Portal on the [employer]. Simply click on Health Records under Health Data and then click on the [employer] logo. HOW TO SAFELY DISPOSE OF PRESCRIPTION MEDICATIONS Please use one of the following methods to safely dispose of your unused medications. 1.Use a drug disposal kit: the drug disposal pouch allows you to safely discard your old and unused drugs. Ask your nurse to give you one when you are discharged.2.Visit a local take-back location: Many local pharmacies and police departments have programs that collect old and unwanted prescription drugs. Call your local pharmacy or go to http://test company.StandardNine/2P5Kb1t to find one close to you.3.Make use of household items: Use cat litter or old coffee grounds to dispose medications if other options are not available. Mix your drugs with these household products, seal them in an airtight container and throw it into the garbage. Call [facility]: [phone] to be sure your drugs can be disposed of in this way. Some medicines may require a different approach.4.Never flush your medications down the toilet. IF YOU HAVE BEEN PRESCRIBED AN OPIOIDS FOR PAIN If you have been prescribed an opioid (such as hydrocodone, oxycodone or morphine), it is critical to understand the possible side effects and risks of opioid pain medications. Even when taken as directed, opioids can have several side effects including: Tolerance, meaning you might need to take more of a medication for the same pain relief. Nausea, vomiting and/or constipation. Sleepiness, dizziness, dry mouth, confusion, depression or itching. Physical dependence, meaning you have withdrawal symptoms when a medication is stopped ? this can develop within a few days. KNOW YOUR RESPONSIBILITIES It is important to know exactly how much and how often to take the opioid pain medications you are prescribed. Never take opioids in higher amounts or more often than prescribed. Do not combine opioids with alcohol or other drugs that cause drowsiness, such as benzodiazepines, also known as benzos, including diazepam and alprazolam, muscle relaxants or sleep aids. Never sell or share prescription opioids. This is illegal. Store opioids in a secure place and out of reach of others (including children, family, friends and visitors). The last page(s) of this document has been signed and retained as a CHART COPY Signatures Patient Education Materials Dental Pain Medication Leaflets My discharge plan and instructions have been reviewed and explained to me and I,MARIBEL LANGFORD understand my current condition and have read and understand these discharge instructions. I have received a written copy of the plan/instructions. If I have questions, I am aware that I should contact my doctor. Patient/Vocational Guidance Counselor Signature: Date/Time: Relationship to Patient: ___ Witness Name/Signature: Date/Time: [facility] 04-18-2025 Note sChelo Snow Groomer: SIGN, AUTHOR, PERFORM Event Display: [facility] Radiology Procedure Record Authored Date: [id number] [facility] Radiology Procedure Record Summary Primary Physician: ABENA CORRAL MD Finalized Date/Time: 04/18/25 11:50:30 Pt. Name: MARIBEL LANGFORD/Sex: 1975 Male Med Rec #: [id number] Physician: Financial #: [id number] Pt. Type: O Room/Bed: / Admit/Disch: 04/18/25 11:00:00 - Institution: Allergies identified in patient's electronic medical record at time of printing on 04/18/25 Entry 1 Entry 2 Entry 3 Substance Vicodin aspirin erythromycin Reaction Type Allergy Allergy Allergy Last Modified By: CHECO Sosa RN Julie M Sowul, RN Julie M 11/04/16 19:55:57 11/04/16 19:55:00 11/04/16 19:55:39 Entry 4 Substance penicillin Reaction Type Allergy Last Modified By: CHECO Sosa 11/04/16 19:55:23 Case Attendance - [facility] IR Entry 1 Entry 2 Entry 3 Case Attendee ABENA CORRAL MD, Brooke TECH Weidleman, Morgan B Role Performed Primary Surgeon Mac Operator Mac Operator Details Time In 04/18/25 11:21:00 04/18/25 11:10:00 04/18/25 11:10:00 Time Out 04/18/25 11:36:00 04/18/25 11:44:00 04/18/25 11:44:00 Procedure/Preference IR Thyroid Biopsy SN IR Thyroid Biopsy SN IR Thyroid Biopsy SN Card Last Modified By: Chelo Barton Kimberly Masters, Kimberly Snow Groomer 04/18/25 Snow Groomer 04/18/25 Snow Groomer 04/18/25 11:36:33 11:45:21 11:45:21 Entry 4 Case Attendee Susana Stephens Role Performed Other Details Time In 04/18/25 11:18:00 Time Out 04/18/25 11:45:00 Procedure/Preference IR Thyroid Biopsy SN Card Last Modified By: Chelo Barton Snow Groomer 04/18/25 11:45:21 Radiology Procedures - AO IR Entry 1 Procedure/Preference IR Thyroid Biopsy SN Actual Procedure IR Thyroid Biopsy Card Primary Procedure Yes Primary Surgeon ABENA CORRAL MD Anesthesia/Sedation Local Type Additional Procedure Times Start 04/18/25 11:22:00 Stop 04/18/25 11:36:00 Specialty Service SN Radiology Procedure EBL 0 mL Last Modified By: Chelo Barton Snow Groomer 04/18/25 11:36:54 Culture and Specimens - AO IR Entry 1 Kind Specimen Type Lesion Date/Time 04/18/25 11:25:00 Description Cytology Disposition Cytology Lab Source Thyroid Gland Last Modified By: Chelo Barton Snow Groomer 04/18/25 11:50:10 General Case Data - AO IR Entry 1 Radiology Case Information Room AO IR Case Level IR Level 2 Specialty SN Radiology Procedure ASA Class None Diagnosis Preop Diagnosis Thyroid nodule Postop Same As Preop Yes Postop Diagnosis Thyroid nodule Last Modified By: Chelo Barton Snow Groomer 04/18/25 11:25:35 Immediate Post Procedure Note - AO IR Entry 1 Immediate Post Yes Findings left thyroid nodule Procedure Note biopsy done without displayed for complication Physician to review Closure Technique Closure Technique Primary Last Modified By: Chelo Barton Snow Groomer 04/18/25 11:50:28 Immediate Post Procedure Note - AO IR Signed By: ABENA CORRAL MD 04/18/25 11:47 Allergy Information - AO IR Entry 1 Allergies Reviewed? Yes Allergies Reviewed Patient With Last Modified By: Chelo Barton 04/18/25 11:20:06 Procedure Case Times - AO IR Entry 1 Patient In Procedure Patient In OR 04/18/25 11:10:00 Patient Out of OR 04/18/25 11:45:00 Procedure Start/Stop Procedure Start Time 04/18/25 11:22:00 Procedure Stop Time 04/18/25 11:36:00 Last Modified By: Chelo Barton 04/18/25 11:45:33 Delays - [facility] IR Entry 1 Delay Reason: No Delay Duration 0 minute(s) Last Modified By: Chelo Barton 04/18/25 11:22:31 Radiology Protocols/Time Out - [facility] IR Entry 1 Preprocedure Clinician Verifies Correct patient ID When Clinically Confirmation of correct using name & date Indicated side(s) and site(s) or MRN, Accurate procedure, complete Informed Consent, Clinical team introduction complete OR/Procedure Room/Bedside Time 04/18/25 11:22:00 Clinician Verifies Correct patient identity including EMR & records using name and date or medical record number, Accurate procedure consent form, Correct patient position, Necessary equipment is available When Applicable Alcohol based prep dry Team Members ABENA CORRAL MD, Present for Time Out Lauren Pan, Marty Howe Patel, Bharati Instrument Sterility Team Members ABENA CORRAL MD, Verifying Sterility Lauren Pan Procedure IR Thyroid Biopsy SN Last Modified By: Chelo Barton 04/18/25 11:23:59 Patient Positioning - AO IR Entry 1 Procedure IR Thyroid Biopsy SN Body Position OP Supine Left Arm Position Resting at Side Right Arm Position Resting at Side Left Leg Position Extended Right Leg Position Extended Feet Uncrossed? Yes Pressure Points n/a Checked Positioning Devices Pillow Support Table Type Standard Date and Time 04/18/25 11:10:00 Last Modified By: Chelo Barton 04/18/25 11:29:09 Radiology Procedure Plan - [facility] IR Entry 1 Radiology - Nursing Care Plan Outcome Statement The patient Outcome Statement The patient receives demonstrates knowledge Cont. appropriate of the expected medication(s), safely responses to the administered during the operative/invasive perioperative/invasive procedure., The period., The patient is patient's value system, free from signs and lifestyle, ethnicity, symptoms of injury and culture are caused by extraneous considered, respected, objects (equipment, and incorporated in the instrumentation, perioperative plan of sponges, or sharps)., care., The patient is The patient is free free from signs and from signs and symptoms symptoms of infection., of electrical injury., The patient is free The patient is at or from signs and symptoms returning to of injury related to normothermia at the positioning., The conclusion of the patient is free from immediate signs and symptoms of postoperative/invasive chemical injury. period., The patient is free from signs and symptoms of laser injury. Radiology - Action Plan Action Plan - Patient demonstrates Outcome Statement knowledge of the expected reseponses to the invasive procedure, Patient's value system, lifestyle, ethnicity, and culture are considered, respected, and incorporated in the perioperative plan of care., Patient is free from signs and symptoms of infection., Patient is free from signs and symptoms of injury related to positioning., Patient is free from signs and symptoms of chemical injury., Patient receives appropriate medication(s), safely administered during the perioperative period., Patient is free from signs and symptoms of injury caused by extraneous objects (equipment, instrumentation, sponges, or sharps)., Patient is free from signs and symptoms of electrical injury. Outcomes Met? Yes Pulverizing And Sifting Operator Lauren Pan Completing Procedure Plan Last Modified By: Chelo Barton 04/18/25 11:25:06 Radiology Procedure Details - [facility] IR Entry 1 Radiology Sedation Case Times Sedation Total Time 0 Radiology - Fluid/Drainage Radiology Contrast Contrast Used? No Radiology Flouroscopy Fluoroscopy Used? No Fluoro Time 0 Radiology Local Local Used? Yes Local Type: Lidocaine 2% Local Dose 3mL Radiology Procedure Site Site/Location Neck/Throid area Site Condition No complications Dressing Type Bandaids Last Modified By: Chelo Barton 04/18/25 11:27:52 Case Comments <None> Finalized By: Chelo Barton Document Signatures Signed By: Chelo Barton 04/18/25 11:50 [facility] 04-18-2025 Note ORIGINAL PROCEDURE: ULTRASOUND GUIDED THYROID FNA Left lower lobe 04/18/2025 COMPARISON: 03/25/2025 HISTORY: ORDERING SYSTEM PROVIDED HISTORY: Reason for Exam: Thyroid Nodule TECHNIQUE: Informed consent was obtained after the procedure was discussed in detail including the risk, benefits, and alternatives. Milton protocol was followed. The neck was prepped and draped in sterile fashion and local anesthesia was achieved with lidocaine. 25 gauge needle was advanced under ultrasound guidance into a right thyroid nodule and fine-needle aspiration was performed. 4 passes were performed and the patient tolerated the procedure well. IMPRESSION: Successful ultrasound-guided fine-needle aspiration of the left lower thyroid nodule. Interpreted by: Abena Corral MD Preliminary Report By: Abena Corral MD Electronically signed By Abena Corral MD Dictated Date: 04/18/2025 12:37:59 PM Prelim Date: 04/18/2025 12:39:04 PM Sign Date: 04/18/2025 12:39:04 PM Ordering Provider: [facility] 04-18-2025 Note [facility] Radiology Procedure Record Summary Primary Physician: ABENA CORRAL MD Finalized Date/Time: 04/18/25 11:50:30 Pt. Name: PRIMITIVOMARIBEL./Sex: 1975 Male Med Rec #: [id number] Physician: Financial #: [id number] Pt. Type: O Room/Bed: / Admit/Disch: 04/18/25 11:00:00 - Institution: Allergies identified in patient's electronic medical record at time of printing on 04/18/25 Entry 1 Entry 2 Entry 3 Substance Vicodin aspirin erythromycin Reaction Type Allergy Allergy Allergy Last Modified By: CHECO Sosa RN Julie M Sowul, RN Julie M 11/04/16 19:55:57 11/04/16 19:55:00 11/04/16 19:55:39 Entry 4 Substance penicillin Reaction Type Allergy Last Modified By: CHECO Sosa 11/04/16 19:55:23 Case Attendance - [facility] IR Entry 1 Entry 2 Entry 3 Case Attendee ABENA CORRAL MD, Brooke TECH Weidleman, Morgan B Role Performed Primary Surgeon Mac Operator Mac Operator Details Time In 04/18/25 11:21:00 04/18/25 11:10:00 04/18/25 11:10:00 Time Out 04/18/25 11:36:00 04/18/25 11:44:00 04/18/25 11:44:00 Procedure/Preference IR Thyroid Biopsy SN IR Thyroid Biopsy SN IR Thyroid Biopsy SN Card Last Modified By: Chelo Barton Kimberly Masters, Kimberly Snow Groomer 04/18/25 Snow Groomer 04/18/25 Snow Groomer 04/18/25 11:36:33 11:45:21 11:45:21 Entry 4 Case Attendee Susana Stephens Role Performed Other Details Time In 04/18/25 11:18:00 Time Out 04/18/25 11:45:00 Procedure/Preference IR Thyroid Biopsy SN Card Last Modified By: Chelo Barton Snow Groomer 04/18/25 11:45:21 Radiology Procedures - AO IR Entry 1 Procedure/Preference IR Thyroid Biopsy SN Actual Procedure IR Thyroid Biopsy Card Primary Procedure Yes Primary Surgeon ABENA CORRAL MD Anesthesia/Sedation Local Type Additional Procedure Times Start 04/18/25 11:22:00 Stop 04/18/25 11:36:00 Specialty Service SN Radiology Procedure EBL 0 mL Last Modified By: hCelo Barton Snow Groomer 04/18/25 11:36:54 Culture and Specimens - [facility] IR Entry 1 Kind Specimen Type Lesion Date/Time 04/18/25 11:25:00 Description Cytology Disposition Cytology Lab Source Thyroid Gland Last Modified By: Chelo Barton Snow Groomer 04/18/25 11:50:10 General Case Data - [facility] IR Entry 1 Radiology Case Information Room AO IR Case Level IR Level 2 Specialty SN Radiology Procedure ASA Class None Diagnosis Preop Diagnosis Thyroid nodule Postop Same As Preop Yes Postop Diagnosis Thyroid nodule Last Modified By: Chelo Barton Snow Groomer 04/18/25 11:25:35 Immediate Post Procedure Note - AO IR Entry 1 Immediate Post Yes Findings left thyroid nodule Procedure Note biopsy done without displayed for complication Physician to review Closure Technique Closure Technique Primary Last Modified By: Chelo Barton Snow Groomer 04/18/25 11:50:28 Immediate Post Procedure Note - AO IR Signed By: ABENA CORRAL MD 04/18/25 11:47 Allergy Information - [facility] IR Entry 1 Allergies Reviewed? Yes Allergies Reviewed Patient With Last Modified By: Chelo Barton 04/18/25 11:20:06 Procedure Case Times - [facility] IR Entry 1 Patient In Procedure Patient In OR 04/18/25 11:10:00 Patient Out of OR 04/18/25 11:45:00 Procedure Start/Stop Procedure Start Time 04/18/25 11:22:00 Procedure Stop Time 04/18/25 11:36:00 Last Modified By: Chelo Barton 04/18/25 11:45:33 Delays - AO IR Entry 1 Delay Reason: No Delay Duration 0 minute(s) Last Modified By: Chelo Barton 04/18/25 11:22:31 Radiology Protocols/Time Out - [facility] IR Entry 1 Preprocedure Clinician Verifies Correct patient ID When Clinically Confirmation of correct using name & date Indicated side(s) and site(s) or MRN, Accurate procedure, complete Informed Consent, Clinical team introduction complete OR/Procedure Room/Bedside Time 04/18/25 11:22:00 Clinician Verifies Correct patient identity including EMR & records using name and date or medical record number, Accurate procedure consent form, Correct patient position, Necessary equipment is available When Applicable Alcohol based prep dry Team Members ABENA CORRAL MD, Present for Time Out Lauren Pan, Marty Howe, Susana Stephens Instrument Sterility Team Members ABENA CORRAL MD, Verifying Sterility Lauren Pan Procedure IR Thyroid Biopsy SN Last Modified By: Chelo Barton 04/18/25 11:23:59 Patient Positioning - [facility] IR Entry 1 Procedure IR Thyroid Biopsy SN Body Position OP Supine Left Arm Position Resting at Side Right Arm Position Resting at Side Left Leg Position Extended Right Leg Position Extended Feet Uncrossed? Yes Pressure Points n/a Checked Positioning Devices Pillow Support Table Type Standard Date and Time 04/18/25 11:10:00 Last Modified By: Chelo Barton 04/18/25 11:29:09 Radiology Procedure Plan - [facility] IR Entry 1 Radiology - Nursing Care Plan Outcome Statement The patient Outcome Statement The patient receives demonstrates knowledge Cont. appropriate of the expected medication(s), safely responses to the administered during the operative/invasive perioperative/invasive procedure., The period., The patient is patient's value system, free from signs and lifestyle, ethnicity, symptoms of injury and culture are caused by extraneous considered, respected, objects (equipment, and incorporated in the instrumentation, perioperative plan of sponges, or sharps)., care., The patient is The patient is free free from signs and from signs and symptoms symptoms of infection., of electrical injury., The patient is free The patient is at or from signs and symptoms returning to of injury related to normothermia at the positioning., The conclusion of the patient is free from immediate signs and symptoms of postoperative/invasive chemical injury. period., The patient is free from signs and symptoms of laser injury. Radiology - Action Plan Action Plan - Patient demonstrates Outcome Statement knowledge of the expected reseponses to the invasive procedure, Patient's value system, lifestyle, ethnicity, and culture are considered, respected, and incorporated in the perioperative plan of care., Patient is free from signs and symptoms of infection., Patient is free from signs and symptoms of injury related to positioning., Patient is free from signs and symptoms of chemical injury., Patient receives appropriate medication(s), safely administered during the perioperative period., Patient is free from signs and symptoms of injury caused by extraneous objects (equipment, instrumentation, sponges, or sharps)., Patient is free from signs and symptoms of electrical injury. Outcomes Met? Yes Pulverizing And Sifting Operator Lauren Pan Completing Procedure Plan Last Modified By: Chelo Barton 04/18/25 11:25:06 Radiology Procedure Details - [facility] IR Entry 1 Radiology Sedation Case Times Sedation Total Time 0 Radiology - Fluid/Drainage Radiology Contrast Contrast Used? No Radiology Flouroscopy Fluoroscopy Used? No Fluoro Time 0 Radiology Local Local Used? Yes Local Type: Lidocaine 2% Local Dose 3mL Radiology Procedure Site Site/Location Neck/Throid area Site Condition No complications Dressing Type Bandaids Last Modified By: Chelo Barton 04/18/25 11:27:52 Case Comments Finalized By: Chelo Barton Document Signatures Signed By: Chelo Barton 04/18/25 11:50 [facility] 04-18-2025 Note Exam Date Time Procedure Performing Provider Status 04/18/25 11:46 AM IR Thyroid Biopsy ABENA CORRAL MD; Auth (Verified) [id number] ORIGINAL PROCEDURE: ULTRASOUND GUIDED THYROID FNA Left lower lobe 04/18/2025 COMPARISON: 03/25/2025 HISTORY: ORDERING SYSTEM PROVIDED HISTORY: Reason for Exam: Thyroid Nodule TECHNIQUE: Informed consent was obtained after the procedure was discussed in detail including the risk, benefits, and alternatives. Milton protocol was followed. The neck was prepped and draped in sterile fashion and local anesthesia was achieved with lidocaine. 25 gauge needle was advanced under ultrasound guidance into a right thyroid nodule and fine-needle aspiration was performed. 4 passes were performed and the patient tolerated the procedure well. IMPRESSION: Successful ultrasound-guided fine-needle aspiration of the left lower thyroid nodule. Interpreted by: Abena Corral MD Preliminary Report By: Abena Corral MD Electronically signed By Abena Corral MD Dictated Date: 04/18/2025 12:37:59 PM Prelim Date: 04/18/2025 12:39:04 PM Sign Date: 04/18/2025 12:39:04 PM Ordering Provider: [place] [id number] Note* Exam Date Time Procedure Performing Provider Status 03/29/25 11:12 AM MRI Spine Cervical w/o Contrast JAYA DANIEL MD; Auth (Verified) [id number] ORIGINAL EXAMINATION: MRI OF THE CERVICAL SPINE WITHOUT CONTRAST 03/29/2025 11:14 am TECHNIQUE: Multiplanar multisequence MRI of the cervical spine was performed without the administration of intravenous contrast. COMPARISON: None. HISTORY: ORDERING SYSTEM PROVIDED HISTORY: Reason for Exam: Neck pain, chronic, degenerative changes on xray ; Neck pain, chronic FINDINGS: BONES/ALIGNMENT: There is normal alignment of the spine. The vertebral body heights are maintained. The bone marrow signal appears unremarkable. Facet arthropathy is greatest at C4-C5. SPINAL CORD: No abnormal cord signal is seen. SOFT TISSUES: No paraspinal mass identified. Sebaceous cysts are noted in the subcutaneous fat overlying the occiput. C2-C3: There is no significant disc protrusion, spinal canal stenosis or neural foraminal narrowing. C3-C4: There is no significant disc protrusion, spinal canal stenosis or neural foraminal narrowing. C4-C5: There is no significant disc protrusion, spinal canal stenosis or neural foraminal narrowing. C5-C6: There is no significant disc protrusion, spinal canal stenosis or neural foraminal narrowing. C6-C7: There is no significant disc protrusion, spinal canal stenosis or neural foraminal narrowing. C7-T1: There is no significant disc protrusion, spinal canal stenosis or neural foraminal narrowing. IMPRESSION: Facet degenerative changes. No herniated disc or significant canal or foraminal narrowing. Interpreted by: Jaya Daniel Preliminary Report By: Jaya Daniel Electronically signed By Jaya Daniel Dictated Date: 03/29/2025 11:29:29 AM Prelim Date: 03/29/2025 11:30:43 AM Sign Date: 03/29/2025 11:30:43 AM Ordering Provider: [facility]08-04-2025 Note* Exam Date Time Procedure Performing Provider Status 03/25/25 10:25 AM US Thyroid LESLY VERDIN MD; Auth (V erified) [id number] ORIGINAL EXAMINATION: Ultrasound Thyroid 03/25/2025 10:29 am COMPARISON: Ultrasound 07/31/2024 TECHNIQUE: This report is based on interpretation of permanently recorded ultrasound images. HISTORY: ORDERING SYSTEM PROVIDED HISTORY: Reason for Exam: Thyroid Nodule, FINDINGS: Size right thyroid lobe: 4.9 x 1.6 x 1.9 cm Size left thyroid lobe: 5.9 x 2.1 x 1 point cm Size isthmus: 0.7 cm Texture: Homogeneous background echogenicity with normal vascularity. Estimated total number of nodules greater than or equal to 1 cm: 1 Nodule#: # 1: This is a nodule in the lower left lobe also seen previously that is 2.0 x 1.4 x 1.1 cm not significantly changed. The nodule is solid hyperechoic taller than wide with lobular margins and no suspicious echogenic foci. ACR Total Points: >/= 7; ACR TI-RADS risk category: TR5 - highly suspicious nodule. There is no other suspicious thyroid nodule. IMPRESSION: Stable left thyroid nodule. 1. Nodule 1: Size 2.0 cm, ACR TI-RADS 2017 Risk category and Recommendation TR 5, fine-needle biopsy suggested.. ACR TI-RADS 2017 Recommendations: TR1(0 points) : No FNA or follow up TR2 (2 points) : No FNA or follow up TR3 (3 points) : FNA if >/= 2.5 cm, follow up if 1.5 - 2.4 cm in 1, 3, and 5 years TR4 (4-6 points) : FNA if >/= 1.5 cm, follow up if 1.0 - 1.4 cm in 1, 2, 3, and 5 years TR5 (>/= 7 points) : FNA if >/= 1.0 cm, follow up if 0.5 - 0.9 cm every year for 5 years *ACR TI-RADS recommends that no more than two nodules with the highest ACR TI-RADS total point should be biopsied and no more than four nodules should be followed. Interpreted by: Lesly Verdin MD Preliminary Report By: Lesly Verdin MD Electronically signed By Lesly Verdin MD Dictated Date: 03/25/2025 11:14:23 AM Prelim Date: 03/25/2025 11:16:56 AM Sign Date: 03/25/2025 11:16:56 AM Ordering Provider: [place] [id number] Note* Exam Date Time Procedure Performing Provider Status 03/25/25 10:22 AM BD Bone Density DEXA Axial Skeleton MARCY STEPHENS MD; Auth (Verified) [id number] ORIGINAL EXAMINATION: BONE DENSITOMETRY03/25/2025 10:22 am TECHNIQUE: Dual energy bone densitometry right forearm and left hip. COMPARISON: None HISTORY: ORDERING SYSTEM PROVIDED HISTORY:Reason for Exam: hypercalcemia, possible mineralization defect Osteoporosis screening. FINDINGS: T Score Left Femoral Neck: -2.3 Left Femoral Neck: 0.613 (g/cm2) T Score Left Hip: -1.6 Left Hip: 0.786 (g/cm2) T Score Right Forearm: -3.0 Right Forearm: 0.654 (g/cm2) COMMENTS: hx back fx, hx lt elbow sx FRAX score: 10 year risk major osteoporotic fracture 25 %. 10 year risk hip fracture 6.4 %. The BHOF f/k/a NOF recommends that FDA-approved medical therapies be considered in post-menopausal women and men age >/= 50 years with a: * Hip or vertebral fracture, or * T-score of /= 20% for major osteoporotic fractures or * >/= 3% for hip fractures All treatment decisions require clinical judgement and consideration of individual patient factors, including patient preferences, comorbidities, previous drug use, risk factors not captured in the FRAX registered model (e.g., frailty, falls, vitamin D deficiency, increased bone turnover, interval significant decline in bone density) and possible under- or over-estimation of fracture risk by FRAX. IMPRESSION: Osteoporosis. Interpreted by: Marcy Stephens MD Preliminary Report By: Marcy Stephens MD Electronically signed By Marcy Stephens MD Dictated Date: 03/25/2025 11:52:16 PM Prelim Date: 03/25/2025 11:53:48 PM Sign Date: 03/25/2025 11:53:48 PM Ordering Provider: AYUSH MCNULTY [facility]10-11-2024 Evaluation + Plan note Future Scheduled Tests Radiology* NM Parathyroid Study 06/01/24 [facility] 07-30-2024 Hospital Discharge instructions Patient Education 03/19/2024 23:21:24 Acute Sinusitis Acute Sinusitis Acute sinusitis is irritation and swelling of the sinuses. It is usually caused by a viral infection after a common cold. Your doctor can help you find relief. What is acute sinusitis? Sinuses are air-filled spaces in the skull behind the face. They are kept moist and clean by a lining of mucosa. Things such as pollen, smoke, and chemical fumes can irritate the mucosa. It can then swell up. As a response to irritation, the mucosa makes more mucus and other fluids. Tiny hairlike cilia cover the mucosa. Cilia help carry mucus toward the opening of the sinus. Too much mucus may cause the cilia to stop working. This blocks the sinus opening. A buildup of fluid in the sinuses thencauses pain and pressure. It can also encourage bacteria to grow in the sinuses. Common symptoms of acute sinusitis You may have: Facial soreness pain Headache Fever Fluid draining in the back of the throat (postnasal drip) Congestion Drainage that is thick and colored, instead of clear Cough Diagnosing acute sinusitis Your doctor will ask about your symptoms and health history. He or she will look at your ear, nose,and throat. You usually won't need to have X-rays taken. The doctor may take a sample of mucus to check for bacteria. If you have sinusitis that keeps coming back, you may need imaging tests such as X-rays or CAT scans. This will help your doctor check fora structural problem that may be causing the infection. Treating acute sinusitis Treatment is aimed at unblocking the sinus opening and helping the cilia work again. You may need to take antihistamine and decongestant medicine. These can reduce inflammation and decrease the amount of fluid your sinuses make. If you have a bacterial infection, you will need to take antibiotic medicine for 10 to 14 days. Take this medicine until it is gone, even if you feel better. [id number] [employer]. [address] [place] [address]. All rights reserved. This information is not intended as a substitute for professional medical care. Always follow yourhealthcare professional's instructions. Follow Up Care 03/19/2024 22:51:16 With:RAJI WALLIS Address: [address] [place] [phone] When:2-4 days [facility] 07-29-2024 Note Discharge Instructions Thank you for allowing [facility] to assist you with your healthcare needs. The following is importantdischarge information regarding your hospital visit. Diagnosis from Today's Visit Acute sinusitis What to Do Next Instructions from Your Care Team Discharge Return to Work, School, or Sports (Return to Work, School, or Sports) - Ordered -- 03/21/24, May return to: work, 03/19/24 23:21:00 EDT Post Acute Orders No qualifying data available. You Need to Schedule the Following Appointments Follow Up with RAJI WALLIS When:Within 2-4 days Where:[address] [place] [phone] Allergies Vicodin aspirin erythromycin penicillin Medications Please ask your primary doctor or pharmacist before taking any other medication not listed, including over the counter drugs, herbal medications, vitamins and or supplements as they may interact withyour home medications. What How Much When Why Instructions Last Dose New doxycycline (doxycycline hyclate 100 mg oral capsule) 1 cap by mouth Two (2) times a day Duration: 5 Days Printed Prescription Unchanged cholecalciferol (Vitamin D3) 5,000 unit(s) by mouth Once a day Unchanged DME (Post-op shoe) See instructions Injury of right ankle and foot given in office Unchanged meloxicam (meloxicam 15 mg oral tablet) 1 tab(s) by mouth Once a day Injury of right ankle and foot Please take this list to your next doctor s visit. Bring all medications you take, including over the counter medications, herbals and other supplements with you to your doctor s visit. Patients and families are reminded to discard old lists and to update any records with all medication providers or retail pharmacies. Education Materials Acute Sinusitis Acute sinusitis is irritation and swelling of the sinuses. It is usually caused by a viral infection after a common cold. Your doctor can help you find relief. What is acute sinusitis? Sinuses are air-filled spaces in the skull behind the face. They are kept moist and clean by a lining of mucosa. Things such as pollen, smoke, and chemical fumes can irritate the mucosa. It can then swell up. As a response to irritation, the mucosa makes more mucus and other fluids. Tiny hairlike cilia cover the mucosa. Cilia help carry mucus toward the opening of the sinus. Too much mucus may cause the cilia to stop working. This blocks the sinus opening. A buildup of fluid in the sinuses thencauses pain and pressure. It can also encourage bacteria to grow in the sinuses. Common symptoms of acute sinusitis You may have: Facial soreness pain Headache Fever Fluid draining in the back of the throat (postnasal drip) Congestion Drainage that is thick and colored, instead of clear Cough Diagnosing acute sinusitis Your doctor will ask about your symptoms and health history. He or she will look at your ear, nose,and throat. You usually won't need to have X-rays taken. The doctor may take a sample of mucus to check for bacteria. If you have sinusitis that keeps coming back, you may need imaging tests such as X-rays or CAT scans. This will help your doctor check fora structural problem that may be causing the infection. Treating acute sinusitis Treatment is aimed at unblocking the sinus opening and helping the cilia work again. You may need to take antihistamine and decongestant medicine. These can reduce inflammation and decrease the amount of fluid your sinuses make. If you have a bacterial infection, you will need to take antibiotic medicine for 10 to 14 days. Take this medicine until it is gone, even if you feel better. 7839-2772 [employer]. [address] [place] [address], [place] [address]. All rights reserved. This information is not intended as a substitute for professional medical care. Always follow yourhealthcare professional's instructions. Additional Information VACCINATE! IT SAVES LIVES! Members of the community who have not yet received the COVID-19 vaccine and would like to receive it can visit one of [facility] vaccine clinics. There are many vaccine clinic locations within the [facility]. For locations and available times, please visit www.[email or web address].[place].gov/. It is important to note that some COVID mobile vaccine clinics are held outdoors and may be canceled in rainy or stormy conditions. To learn more about pediatric vaccinations (ages 5-11), we invite you to visit the [facility] webpage. https://www.[email or web address].org/[email or web address]-Kwjgmxphhhq-Eifoslzwni-[email or web address] [email or web address].htmlTo learn more about the COVID-19 vaccine, we invite you to visit the CDC website for a list of frequently asked questions. https://www.cdc.gov/coronavirus/2019-ncov/vaccines/faq.html [facility] Patient Portal Access Instructions: Stay connected with your healthcare team and access your personal medical information anytime with the [employer] Patient Portal. If you would like a full copy of your medical records please contact the [facility] Medical Records Department Tuesday through Tuesday between 8a.m. and 4:30p.m. Please follow the directions below to access the portal: 1.Access the email account you provided upon registration to the [facility].2.Look for an invitation email from [facility].3.Open the email and access the invitation link: Accept Invitation to [employer]4.Fill in the required muprhy to create your account. Sign into [email or web address] with your username and password that you created in the above steps to stay up to date. You can then view a summary of results, a summary of your visits, and the ability to download your summaries to your computer or send the information securely to a physician. Remember that your healthcare information is confidential, so carefully consider who you will allow to register on the [facility] Patient Portal for access to your information. You can also access the [facility] Patient Portal on the [employer] farooq. Simply click on Health Records under [employer] and then click on the [employer] logo. HOW TO SAFELY DISPOSE OF PRESCRIPTION MEDICATIONS Please use one of the following methods to safely dispose of your unused medications. 1.Use a drug disposal kit: the drug disposal pouch allows you to safely discard your old and unuseddrugs. Ask your nurse to give you one when you are discharged.2.Visit a local take-back location: Many local pharmacies and police departments have programs that collect old and unwanted prescriptiondrugs. Call your local pharmacy or go to http://test company.StandardNine/9C8Cy7s to find one close to you.3.Make use of household items: Use cat litter or old coffee grounds to dispose medications if other options arenot available. Mix your drugs with these household products, seal them in an airtight container andthrow it into the garbage. Call [facility]: [phone] to be sure your drugs can be disposed of in this way. Some medicines may require a different approach.4.Never flush your medications down the toilet. IF YOU HAVE BEEN PRESCRIBED AN OPIOIDS FOR PAIN If you have been prescribed an opioid (such as hydrocodone, oxycodone or morphine), it is critical to understand the possible side effects and risks of opioid pain medications. Even when taken as directed, opioids can have several side effects including: Tolerance, meaning you might need to take more of a medication for the same pain relief. Nausea, vomiting and/or constipation. Sleepiness, dizziness, dry mouth, confusion, depression or itching. Physical dependence, meaning you have withdrawal symptoms when a medication is stopped ? this can develop within a few days. KNOW YOUR RESPONSIBILITIES It is important to know exactly how much and how often to take the opioid pain medications you are prescribed. Never take opioids in higher amounts or more often than prescribed. Do not combine opioids with alcohol or other drugs that cause drowsiness, such as benzodiazepines, also known as benzos,including diazepam and alprazolam, muscle relaxants or sleep aids. Never sell or share prescriptionopioids. This is illegal. Store opioids in a secure place and out of reach of others (including children, family, friends and visitors). The last page(s) of this document has been signed and retained as a CHART COPY Signatures Patient Education Materials Acute Sinusitis Medication Leaflets My discharge plan and instructions have been reviewed and explained to me and I,PRIMITIVO MARIBEL J understand my current condition and have read and understand these discharge instructions. I have received a written copy of the plan/instructions. If I have questions, I am aware that I should contact my doctor. Patient/Vocational Guidance Counselor Signature: Date/Time: Relationship to Patient: Witness Name/Signature: Date/Time: [facility]03-21-2022 Evaluation + Plan note Future Scheduled Tests Radiology* XR Foot Minimum 3 Views Right 11/09/21 * XR Ankle Minimum 3 Views Right 11/09/21 [facility] 12-13-2021 Hospital Discharge instructions Patient Education 08/03/2021 13:31:05 Ankle Sprain (Adult) Ankle Sprain (Adult) An ankle sprain is a stretching or tearing of the ligaments that hold the ankle joint together. There are no broken bones. An ankle sprain is a common injury for both children and adults. It happens when the ankle turns, twists, or rolls in an awkward way. This can be caused by a sports injury. Or it can happen from doing something as simple as stepping on an uneven surface. Ligaments are made of tough connective tissue. Normally, ligaments stretch a certain amount and then go back to their normal place. A sprain happens when a ligament is forced to stretch more than thenormal amount. A severe sprain can actually tear the ligaments. If you have a severe sprain, you may have felt or heard something like a pop when you were injured. Ankle sprains are given a grade depending on whether they are mild, moderate, or severe: Grade 1 sprain. A mild sprain with minor stretching and damage to the ligament. Grade 2 sprain. A moderate sprain where the ligament is partly torn. Grade 3 sprain. The most severe kind of sprain. The ligament is completely torn. Most sprains take about 4 to 6 weeks to heal. A severe sprain can take several months to recover. Your healthcare provider may order X-rays to be sure you don t have a fracture, or broken bone. The injured area will feel sore. Swelling and pain may make it hard to walk. You may need crutches if walking is painful. Or your provider may have you use a cast boot or air splint. This will dependon the grade of ankle sprain that you have. Home care For a Grade 1 sprain, use RICE (rest, ice, compression, and elevation): Rest your ankle. Don t walk on it. Ice should be used right away to help control swelling. Place an ice pack over the injured area for20 minutes. Do this every 3 to 6 hours for the first 24 to 48 hours. Keep using ice packs to ease pain and swelling as needed. To make an ice pack, put ice cubes in a plastic bag that seals at the top. Wrap the bag in a clean, thin towel or cloth. Never put ice or an ice pack directly on the skin. The ice pack can be put right on the cast, bandage, or splint. As the ice melts, be careful that thecast, bandage, or splint doesn t get wet. If you have a boot, open it to apply an ice pack, unless told otherwise by your provider. Compression devices help to control swelling. They also keep the ankle from moving and support yourinjured ankle. These devices include dressings, bandages, and wraps. Elevate or raise your ankle above the level of your heart when sitting or lying down. This is very important for the first 48 hours. Follow the RICE guidelines for a Grade 2 sprain. This type of sprain will take longer to heal. Yourprovider may have you wear a splint, cast, or brace to keep your ankle from moving. If you have a Grade 3 sprain, you are at risk for long-term ankle instability. In rare cases, surgery may be needed. Your provider may have you wear a short leg cast or a walking boot for 2 to 3 weeks. After 48 hours, it may be helpful to apply heat for 20 minutes several times a day. You can do thiswith a heating pad or warm compress. Or you may want to go back and forth between using ice and heat. Never apply heat directly to the skin. Always wrap the heating pad or warm compress in a clean, thin towel or cloth. You may use gkjh-kbe-eagkolb pain medicine (NSAIDS or nonsteroidal anti- inflammatory drugs) to control pain, unless another pain medicine was prescribed. Talk with your provider before using these medicines if you have chronic liver or kidney disease, or have ever had a stomach ulcer or gastrointestinal bleeding. Follow any rehabilitation exercises your provider gives you. These can help you be more flexible and improve your balance and coordination. This is helpful in preventing long-term ankle problems. Prevention To help prevent ankle sprains, it s important to have good strength, balance, and flexibility. Be sure to: Always warm up before you exercise or do something very active Be careful when walking or running on uneven or cracked surfaces Wear shoes that are in good condition and fit well Listen to your body s signals to slow down when you are in pain or tired Follow-up care Any X-rays you had today don t show any broken bones, breaks, or fractures. Sometimes fractures dont show up on the first X-ray. Bruises and sprains can sometimes hurt as much as a fracture. These injuries can take time to heal completely. If your symptoms don t get better or they get worse, talk with your healthcare provider. You may need a repeat X-ray. Follow up with your healthcare provider, or as advised. Check for any warning signs listed below. When to seek medical advice Call your healthcare provider right away if any of these occur: Fever of 100.4 F (38 C) or higher, or as directed by your healthcare provider Chills The injury doesn t seem to be healing The swelling comes back The cast or splint has a bad smell The plaster cast or splint gets wet or soft The fiberglass cast or splint gets wet and does not dry for 24 hours The pain or swelling increases, or redness appears Your toes become cold, blue, numb, or tingly The skin is discolored (looks blue, purple, or radford), has blisters, or is irritated You re-injure your ankle [id number] [employer]. [address] [place] [address], [place] [address]. All rights reserved. This information is not intended as a substitute for professional medical care. Always follow yourhealthcare professional's instructions. Follow Up Care 08/03/2021 11:05:50 With:Go to emergency room if symptoms worsen Address:Unknown When:2-4 days [facility] Evaluation + Plan note No data available for this section [facility] Evaluation + Plan note Future Appointments Appointment Date:06/01/2024 03:00:00 PM Scheduled Provider:RAJI WALLIS Location:[facility] Appointment Type:PC OV [facility] Evaluation + Plan note Future Appointments Appointment Date:12/25/2024 01:30:00 PM Scheduled Provider: Location:TY Appointment Type:PT Outpatient Evaluation Appointment Date:01/09/2025 10:00:00 AM Scheduled Provider:RAJI WALLIS Location:[facility] Appointment Type:PC OV Appointment Date:03/19/2025 03:15:00 PM Scheduled Provider:AYUSH MCNULTY MD Location:[facility] Appointment Type:ENDO SEXUAL ABUSE COUNSELLOR [facility] Evaluation + Plan note Future Appointments Appointment Date:03/14/2025 10:00:00 AM Scheduled Provider:BALTA COBOS DO Location:[facility] Appointment Type:OSM OV Review Testing Appointment Date:03/19/2025 03:15:00 PM Scheduled Provider:AYUSH MCNULTY MD Location:[facility] Appointment Type:ENDO SEXUAL ABUSE COUNSELLOR Appointment Date:03/20/2025 08:00:00 AM Scheduled Provider:RAJI WALLIS Location:[facility] Appointment Type:PC OV Appointment Date:04/10/2025 11:00:00 AM Scheduled Provider:RAJI WALLIS Location:[facility] Appointment Type:PC OV [facility] Evaluation + Plan note Future Appointments Appointment Date:03/25/2025 10:00:00 AM Scheduled Provider: Location:[facility] Appointment Type:BD Bone Density DEXA Axial Skeleton Appointment Date:03/25/2025 11:00:00 AM Scheduled Provider: Location:RAD Appointment Type:US Thyroid Appointment Date:03/29/2025 11:00:00 AM Scheduled Provider: Location:[facility] Appointment Type:MRI Spine Cervical w/o Contrast Appointment Date:04/04/2025 10:00:00 AM Scheduled Provider:BALTA COBOS DO Location:[facility] Appointment Type:OSM OV Review Testing Appointment Date:04/10/2025 11:00:00 AM Scheduled Provider:RAJI WALLIS Location:[facility] Appointment Type:PC OV Appointment Date:04/16/2025 10:15:00 AM Scheduled Provider:AYUSH MCNULTY MD Location:[facility] Appointment Type:ENDO OV Diagnostic Tests Pending * Calcitriol(1,25 di-OH Vit D) 03/20/25 Future Scheduled Tests Radiology* BD Bone Density DEXA Axial Skeleton Adult (21 yrs or older) 03/25/25 * MRI Spine Cervical w/o Contrast 03/29/25 * US Thyroid 03/25/25 [facility] Evaluation + Plan note Future Appointments Appointment Date:03/25/2025 10:00:00 AM Scheduled Provider: Location:RAD Appointment Type:BD Bone Density DEXA Axial Skeleton Appointment Date:03/25/2025 11:00:00 AM Scheduled Provider: Location:RAD Appointment Type:US Thyroid Appointment Date:03/29/2025 11:00:00 AM Scheduled Provider: Location:RAD Appointment Type:MRI Spine Cervical w/o Contrast Appointment Date:04/04/2025 10:00:00 AM Scheduled Provider:BALTA COBOS DO Location:[facility] Appointment Type:OSM OV Review Testing Appointment Date:04/10/2025 11:00:00 AM Scheduled Provider:RAJI WALLIS Location:[facility] Appointment Type:PC OV Appointment Date:04/16/2025 10:15:00 AM Scheduled Provider:AYUSH MCNULTY MD Location:[facility] Appointment Type:ENDO OV Future Scheduled Tests Radiology* BD Bone Density DEXA Axial Skeleton Adult (21 yrs or older) 03/25/25 * MRI Spine Cervical w/o Contrast 03/29/25 * US Thyroid 03/25/25 [facility] Evaluation + Plan note Future Appointments Appointment Date:03/29/2025 11:00:00 AM Scheduled Provider: Location:RAD Appointment Type:MRI Spine Cervical w/o Contrast Appointment Date:04/04/2025 10:00:00 AM Scheduled Provider:BALTA COBOS DO Location:[facility] Appointment Type:OSM OV Review Testing Appointment Date:04/10/2025 11:00:00 AM Scheduled Provider:RAJI WALLIS Location:[facility] Appointment Type:PC OV Appointment Date:04/16/2025 10:15:00 AM Scheduled Provider:AYUSH MCNULTY MD Location:[facility] Appointment Type:ENDO OV Future Scheduled Tests Radiology* MRI Spine Cervical w/o Contrast 03/29/25 [facility] Evaluation + Plan note Future Appointments Appointment Date:04/04/2025 10:00:00 AM Scheduled Provider:BALTA COBOS DO Location:[facility] Appointment Type:OSM OV Review Testing Appointment Date:04/10/2025 11:00:00 AM Scheduled Provider:RAJI WALLIS Location:[facility] Appointment Type:PC OV Appointment Date:04/16/2025 10:15:00 AM Scheduled Provider:AYUSH MCNULTY MD Location:[facility] Appointment Type:ENDO OV Appointment Date:04/18/2025 11:00:00 AM Scheduled Provider: Location:[facility] Appointment Type:IR Thyroid Biopsy Future Scheduled Tests Radiology* IR Thyroid Biopsy 04/18/25 [facility] Evaluation + Plan note Future Appointments Appointment Date:05/15/2025 09:00:00 AM Scheduled Provider:AYUSH MCNULTY MD Location:[facility] Appointment Type:ENDO OV Appointment Date:10/09/2025 11:00:00 AM Scheduled Provider:RAJI WALLIS Location:[facility] Appointment Type: Wellness Annual [facility] Evaluation + Plan note Future Appointments Appointment Date:06/05/2025 12:00:00 PM Scheduled Provider: Location:[facility] Appointment Type:INF/OSP Infusion: Reclast Appointment Date:10/09/2025 11:00:00 AM Scheduled Provider:RAJI WALLIS Location:[facility] Appointment Type: Wellness Annual Future Scheduled Tests Laboratory* N-Telopeptide, Urine 06/26/25 * Calcium Level Ionized 06/26/25 * Magnesium Level 06/26/25 * Phosphorus Level 06/26/25 * Thyroid Stimulating Hormone 06/26/25 * Free T4 06/26/25 * Calcium Random Urine 06/26/25 * Creatinine Random Urine 06/26/25 * PTH, Intact 06/26/25 * Vitamin D Level 06/26/25 * Complete Metabolic Panel 06/26/25 [facility] Evaluation + Plan note Future Appointments Appointment Date:06/20/2025 12:30:00 PM Scheduled Provider: Location:[facility] Appointment Type:INF/OSP Infusion: Reclast Appointment Date:07/04/2025 11:00:00 AM Scheduled Provider:AYUSH MCNULTY MD Location:[facility] Appointment Type:ENDO OV Appointment Date:10/09/2025 11:00:00 AM Scheduled Provider:RAJI WALLIS Location:[facility] Appointment Type:[facility] Annual Diagnostic Tests Pending * N-Telopeptide, Urine 06/14/25 [facility] Evaluation noteNo assessment information available [facility] Work Phone: Evaluation note* Diagnosis Right foot pain Pain in limb documented in this encounter [facility] Work Phone: Evaluation note* Diagnosis Closed displaced fracture of third metatarsal bone of right foot, initial encounter documented in this encounter [employer] Work Phone: Evaluation note* Diagnosis Onset Date Resolution Status Admit Date Difficulty swallowing acute Oct tim2024 9:31am Osteoporosis acute May 9:31am Primary hyperparathyroidism acute May 31, 2025 9:31am Thyroid nodule acute May 312024 9:31am [facility] Work Phone: Hospital Discharge instructions No data available for this section [facility] Progress note No data available for this section [facility] Progress note Author Abena Gzuman [facility] Note Date/Time May 31, 2025 1 0:38am [facility] [address] [place] [address] OFFICE VISIT Date of Service: 05/31/25 MR#: [id number] Acct: [id number] Name: MARIBEL LANGFORD Rep #: [id number] : 1975 Provider: Dr. Ramses Guzman MD Age/Sex: 50/M Location: [facility] Status: Signed Intake Vital Signs 05/31/25 09:50 Height 5 ft 9 in Weight: 151 lb BMI 22.3 BP 137/91 H Blood Pressure Location Rt brachial Position Sitting Respiration 17 Pulse 115 H Pulse Source Monitor Pulse Oximetry (%) 98 Oxygen Delivery Method room air Intake Visit Reasons: POSSIBLE THYROIDECTOMY Chief Complaint: possible thyroidectomy Is patient in pain?: No Allergies aspirin Allergy (Intermediate, Verified 05/31/25 09:53) Other Medications ?Medication ?Instructions ?Recorded ?Confirmed ?Type amitriptyline 25 mg tablet 25 mg PO QDAY 05/31/2505/22 History cholecalciferol (vitamin D3) 25 25 mcg PO QDAY 5 05/31/25 History mcg (1,000 unit) capsule doxycycline hyclate 100 mg capsule 100 mg PO BID 05/3105/31/25 History tizanidine 4 mg capsule 4 mg PO QHS PRN 05/31/2506/15 History PFSH Medical History (Updated 05/31/25 @ 18:[address] Abena Guzman MD) Sleep apnea Asthma Family History (Updated 05/31/25 @ 09:47 by Leeanne John) Mother Cancer Thyroid disorder Hypertension Father Cancer Social History (Updated 05/31/25 @ 09:47 by Leeanne John) Smoking Status: Current every day smoker quit status: not considering quitting alcohol intake: current alcohol intake frequency: a few times a month HPI HPI HPI: The patient is a 50-year-old male with hyperparathyroidism and osteoporosis presenting to discuss thyroid and parathyroid issues. The patient reports a several-year history of fatigue and malaise that prompted extensive testing before hypercalcemia was identified. He recalls that the workup intensified last year, and he has been followed by endocrinology (Dr. Michaud). He was told that his parathyroid condition is causing calcium to bepulled from his bones, leading to osteoporosis and fractures. He reports a history of multiple fractures over the past few years, including a recent incident this year where he fractured his back in multiple places and injured his neck while lifting a laundry basket at home after a physically demanding workday. 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 He also reports a history of breaking 5 toes, his foot, and ankle while wrestling with his son 3-4 years ago, as well as a prior fracture of his other ankle. He has undergone bone density testing with Dr. Michaud, who informed him that his bones are very bad, comparable to those of someone 20 years older.He denies brittle fingernails. He reports dental problems, including a tooth that broke while eating soft food last year, which he attributes to his bone condition. He denies cavities. He also reports difficulty swallowing both solids and liquids for about a year, which has worsened over time. He experiences episodes where food just won't go down and attributes this to his neck injury and muscle problems for which he received injections last week. He also reports neck stiffness and difficulty moving his neck. He denies kidney stones. He reports urinary frequency and urgency, with variable volumes. He drinks approximately 2 gallons of tea daily and consumes a large glass of lactose-free milk each morning, snacks on cheese, and avoids ice cream and yogurt due to lactose intolerance. He does not take calcium supplements. He reports cognitive slowing, difficulty focusing, and forgetfulness that has worsened over the past year. He also reports muscle weakness and difficulty standing up due to his back injury. He denies palpitations, anxiety, depression,reflux, constipation, shortness of breath, dry cough, hoarseness, heat or cold intolerance, and radiation exposure. He reports snoring and trouble sleeping dueto discomfort but is unaware of any sleep apnea. He reports weight fluctuations but states his weight has been steady recently. He reports stable bowel habits. He has a family history of parathyroid problems in his mother, who reportedly had most of her parathyroid glands removed and is doing well. He is unaware of any other family history of thyroid or adrenal conditions. He has no history of radiation exposure. He was diagnosed with a 2.0 cm left thyroid nodule in March, which was biopsiedand found to be benign. He has not undergone an EGD. He believes he is up to date on colonoscopies, with the last one performed last year. Patient's current labs are calcium: 11 mg/dL 03/20/2025 (range of 11-11.3), Vitamin D: 26.5 ng/mL 03/20/2025, Ionized calcium: 1.31 mg/dL 03/20/2025, PTH: 180.8 pg/mL 03/20/2025 (range of 180.8-55.9), Phosphorus: 2.5 (03/20/2025) Thyroid ultrasound was completed 03/25/2025 and showed a right thyroid lobe measuring 4.9 x 1.6 x 1.9 cm. The left thyroid lobe measured 5.9 x 2.1 x 1.0 cm. The isthmus was 0.7 cm thick. A single nodule was identified in the lowerleft lobe and measured 2.0 x 1.4 x 1.1 cm. It was determined to have not significantly changed.. It is described as solid, hyperechoic, taller than wide, with lobular margins, and no suspicious echogenic foci. Overall TI-RADS grading was 5. Imaging as been done with parathyroid scintigraphy on 06/27/2024 showing focal uptake suggesting a left thyroid lobe nodule. Please correlate with thyroid ultrasound. No scintigraphic localization of extra thyroid parathyroid adenoma. Patient has had DEXA imaging 03/25/2025 which showed evidence of osteoporosis witha T-score of -3.0 from patient's right forearm. Patient has not had renal imaging. ROS General General: Yes fatigue; No weight change, appetite, colon cancer, breast cancer or weakness HEENT HEENT: Yes difficulty swallowing and swollen glands; No eye injury, eye surgery or hoarseness Endo Endocrine: Yes thyroid disease; No diabetes mellitus, thyroid cancer, Hair loss, heat intolerance or cold intolerance Skin Skin: No rash or changing moles Musc Musculoskeletal: Yes arthritis; No back problems, rheumatoid arthritis, gout or joint pain Cardio Cardiovascular: No murmur, pacemaker, heart disease, atrial fibrillation, high blood pressure, heart attack, heart stent, palpitations, shortness of breath with exertion or chest pain Psych Psychiatric: No depression, anxiety or hearing voices Resp Respiratory: No shortness of breath, Yes sleep apnea, No cough, No COPD, Yes asthma, No emphysema and No wheezing Gastro Gastrointestinal: No abdominal pain, Yes nausea or vomiting, No diarrhea, No constipation, No blood in stool, No acid reflux, No hemorrhoids, No ulcers, No gallbladder problem and No black,tarry stools [place] Hematologic: No blood thinners, No blood disorders, No bleeding, No anemia and No blood clots Neuro Neurologic: No system reviewed and no additional complaints, except as documented, No as per HPI, No abnormal gait, No abnormal hearing, No abnormal movements, No abnormal speech, No behavioral changes, No burning sensations, No confusion, No convulsions, No disequilibrium, No dizziness, No localized weakness, No frequent falls, No headache(s), No lack of coordination, No loss ofvision, No memory loss, No numbness, No other visual disturbances, No radicular pain, No restless legs, No sensory deficit, No syncope, No tingling, No tremor(s), No weakness and No other ROS Narrative Patient currently has tooth infection and has swelling on left side of face. He is on atb. Patient said he has osteoporosis and has had broken bones- toes/feet/vertebrae/ankles Exam Const General: cooperative and anxious Orientation: alert, awake and oriented x3 HENMT Other: Patient with significant soft tissue swelling favoring the left side of his mandible and somewhat inferior over the upper cervical region Neck Other: Subtly palpable left thyroid nodule is nontender to palpation. I do not palpateany cervical lymph nodes. Ultrasound exam is made of patient's neck can identify inferior and posterior to the right inferior lobe a hypoechoic parathyroid candidate measuring 1.9 x 0.7 x 0.9 cm. Then on the left side partially posterior to the carotid artery and the more superior portion of the neck but posterior to the gland there is a parathyroid candidate measuring 1.2 x0.7 x 2.4 cm. Assessment and Plan Assessment and Plan (1) Thyroid nodule: Status: Acute Comment: Patient is a 50-year-old male with history of left thyroid nodule?highly suspicious by TI-RADS rating?that underwent FNA biopsy and determined to be benign. He presents with possible compressive symptom primarily being difficulty swallowing. No prior EGD exam. Given patient's thyroid nodule and low proportions it remains somewhat dubious whether his thyroid is too be implicated with this swallowing difficulty. Therefore, recommending CT imaging to determine spatial relationship to the esophagus as well as possible subsequent recommendation for EGD. Since we are also looking for further localization of a possible parathyroid will obtain 4D CT protocol of the neck. Plan: ? 4D CT imaging to determine relationship of thyroid to esophagus as well as hopefully aid in localization of parathyroid adenoma (2) Primary hyperparathyroidism: Status: Acute Comment: Patient with clear diagnosis of primary parathyroidism by labs. He is quite symptomatic with a number of recent pathologic fractures as well as osteoporosisdetermined on DEXA imaging 2 months ago. Interestingly, patient's forearm appears to most demineralized which is somewhat specific to this diagnosis. A brief overview of hyperparathyroidism was provided to patient including the multiple secondary effects of this disease process. It does not appear that patient has undergone testing for occult nephrolithiasis or 24-hour urinary calcium. However, he does have evidence of significant hypercalcemia which meets qualifications for surgical intervention. Additionally, patient underwentlocalization studies with thyroid ultrasound and parathyroid scintigraphy. Unfortunately no candidate lesions were identified with the studies, but in my independent review I observed a hypoechoic structure in the left superior position that is highly suggestive. With this finding I believe it is possible patient's scintigraphy was in fact positive in the absence of washout on the left was truly attributable to an adenoma? This was further confirmed with my own bedside ultrasound. Any intervention on the patient's thyroid should include intervention for patient's primary hyperparathyroidism so we will continue this investigation. Plan: ? 24-hour urinary calcium ? 40 CT imaging to hopefully aid in localization (3) Osteoporosis: Status: Acute Comment: Osteoporosis likely secondary to primary hyperparathyroidism described in greater detail above. (4) Difficulty swallowing: Status: Acute Comment: Patient describes dysphagia to solids and liquids. Size of thyroid and nodule do not appear entirely explanatory. Will investigate further with CT imaging. Orders: Orders Calcium, Urine 24HR Today E04.1 - Nontoxic single thyroid nodule Soft Tissue Neck W/WO Contrast Today E04.1 - Nontoxic single thyroid nodule Coding Level of Care Code Off vis,new,level 4 Diagnoses Thyroid nodule E04.1 Primary hyperparathyroidism E21.0 Osteoporosis M81.0 Difficulty swallowing R13.10 Time Spent (min) 45 05/31/25 5289 <Electronically signed by Abena Guzman MD> Date _ Abena Guzman MD Cosigner Signature: Date (if applicable) CC: SEXUAL ABUSE COUNSELLORSusannah Wallis ~ [facility] Work Phone: Reason for referral (narrative)No reason for referral information availableBlStanford University Medical Center Work Phone: Chief Complaint and Reason for Visit Chief Complaint PFIZER VACCINE Chief Complaint Admit Date POSSIBLE THYROIDECTOMY May 31 9:31am Reason for Visit Admit Date Difficulty swallowing May 31, 2025 9:31am Osteoporosis May 31, 2025 9 :31am Primary hyperparathyroidism May 9:31am Thyroid nodule May 31, 2025 9 :31am Summary Purpose Family History No Family History Records Found Relationship Condition Age at Onset Recorded Date/T nevaeh mother Malignant neoplasm Unknown Disorder of thyroid Unknown Hypertension Unknown father Malignant neoplasm Unknown Advance Directives No Advanced Directives Records FoundNo Advanced Directives Records FoundNo Advanced Directives Records FoundNo Advanced Directives Records FoundNo Advanced Directives Records Found Additional Source Comments Goals (unrecognized section and content) Goals may be documented in a n alternate section No data available for this section No data available for this section No data available for this section No data available for this section No data available for this section No data available for this section No data available for this section No data available for this section No data available for this section No data available for this section No data available for this section No data available for this section No data available for this section No data available for this section No data available for this section No data available for this section No data available for this sectionGoals may be documented in an alternate section (unrecognized sect ion and content) No Status Records FoundNo Status Records FoundNo Status Records FoundNo Status Records FoundNo Status Records Found INFORMATION SOURCE (unrecogn ized section and content) DATE CREATED AUTHOR 03/11/2022 [facility] DATE CREATED AUTHOR AUTHOR'S ORGANIZ ATION 03/25/[address] [facility] ([place]) DATE CREATED AUTHOR AUTHOR'S ORGANIZ ATION 04/05/2025 [facility] DATE CREATED AUTHOR AUTHOR'S ORGANIZ ATION 06/16/2025 [facility] DATE CREATED AUTHOR AUTHOR'S ORGANIZ ATION 06/18/2025 [facility] Patient Care team informatio n (unrecognized section and content) Team Status: Active Member Role/Relationship Status Dates Raji Wallis SEXUAL ABUSE COUNSELLOR, SEXUAL ABUSE COUNSELLOR-C Primary care physician Active Team Status: Inactive Member Role/Relationship Status Dates Raji Wallis SEXUAL ABUSE COUNSELLOR, SEXUAL ABUSE COUNSELLOR-C Primary care physician Active Start: May 31, 2025 End: May 31, 2025 Raji Wallis SEXUAL ABUSE COUNSELLOR, SEXUAL ABUSE COUNSELLOR-C Referring Provider Active S tart: May 31, 2025 End: May 31, 2025 Dr. Abena Guzman MD Attending physician Active Start: May 31, 2025 End: May 31, 2025 Care Team Personnel Name: RAJI WALLIS APRN-JAYA Position: P4 Advanced Phototypesetter Operator Member Role: Primary Care Physician Address: Address: [address] [place] [address] Physicians [place], [place] [address] Care Team Related Persons Name: VIVEK LANGFORD Name: HAIM LANGFORD Address: [facility] Address: Home [address] [place], [place] [id number] [place] Address: Temporary [address] [place] [phone] FOR RECORDS PERTAINING TO PATIENTS WHO ARE OR HAVE BEEN ENROLLED IN A CHEMICAL DEPENDENCY/SUBSTANCEABUSE PROGRAM, SOME INFORMATION MAY BE OMITTED. This clinical summary was aggregated from multiple sources. Caution should be exercised in using it in the provision of clinical care. This summary normalizes information from multiple sources, and as a consequence, information in this document may materially change the coding, format and clinical context of patient data. In addition, data may be omitted in some cases. CLINICAL DECISIONS SHOULD BE BASED ON THE PRIMARY CLINICAL RECORDS. [facility]. provides no warranty or guarantee of the accuracy or completeness of information in this document.
== END | disposition home or self-care (01) ==
PROVIDERS: PCP Nurse Practitioner Primary Care; Referring Provider Surgery; Visit Provider Surgery
DX: E04.1 Nontoxic single thyroid nodule (principal)
CPT/HCPCS: 70492; Q9967

== ENCOUNTER → 2025-07-23 | Outpatient (CLI) | payer MEDICAID, SELFPAY ==
[2025-07-23 13:38] LABS: Calcium Urine pH Range 2
[2025-07-23 13:46] LABS: (24 HR) Urine Calcium 208.3 mg/24 HR (100.0-300.0)
== END | disposition home or self-care (01) ==
LOC: LABSPEC 12:03
PROVIDERS: PCP Nurse Practitioner Primary Care; Referring Provider Surgery; Visit Provider Surgery
DX: E04.1 Nontoxic single thyroid nodule (principal)
CPT/HCPCS: 81050; 82340

== ENCOUNTER 2025-08-01 08:25 | Day surgery (SDC) | payer MEDICAID, SELFPAY ==
[2025-08-01] VITALS (8 sets, daily range): BP systolic 108–139; BP diastolic 78–96; PULSE 78–83; RESP 16–18; TEMP 36.1–36.7; O2SAT 95–100; BMI 22.1
--- OUTSIDE RECORDS SUMMARY | 2025-08-01 08:51 | XMS RPT_ITS | CCD ---
Author Organization [facility] Care Team Providers Care Immigration Attorney Name Role Phone PHYSICIAN, NONE Primary Care Physician Unavailab [address] SUPERINTENDENT-PLATE GRAINER APPRENTICE, RAJI Primary Care Physician Provider, None Primary Care Provider UnavailLAURI Fields DO Attending Unavailable [address] SUPERINTENDENT-PLATE GRAINER APPRENTICE, RAJI Primary Care Unavailabl EARL Cat DO Attending Unavailabl e [address] SUPERINTENDENT-PLATE GRAINER APPRENTICE, RAJI Primary Care Unavailabl e [address] SUPERINTENDENT-PLATE GRAINER APPRENTICE, RAJI Primary Care Unavailabl e [address] SUPERINTENDENT-PLATE GRAINER APPRENTICE, RAJI Attending Unavailabl e [address] SUPERINTENDENT-PLATE GRAINER APPRENTICE, RAJI Attending Unavailabl e [address] SUPERINTENDENT-PLATE GRAINER APPRENTICE, RAJI Primary Care Unavailabl e Kwesites CERTIFIED PEST CONTROL TECHNICIAN-C, Raji Primary Care Physician [phone] Katherin CERTIFIED PEST CONTROL TECHNICIAN-Mignon, Raji Referring Provider [phone] Abena Guzman MD Attending Physician HAMLET BENAVIDES, AYUSH Attending Mc miller [address] SUPERINTENDENT-PLATE GRAINER APPRENTICE, RAJI Primary Care UnavailEARL Espino DO Attending Unavailabl e [address] SUPERINTENDENT-PLATE GRAINER APPRENTICE, RAJI Primary Care Unavailabl e [address] SUPERINTENDENT-PLATE GRAINER APPRENTICE, RAJI Attending Unavailabl e [address] SUPERINTENDENT-PLATE GRAINER APPRENTICE, RAJI Primary Care Unavailabl e [address] SUPERINTENDENT-PLATE GRAINER APPRENTICE, RAJI Attending Unavailabl e [address] SUPERINTENDENT-PLATE GRAINER APPRENTICE, RAJI Primary Care Unavailabl e [address] SUPERINTENDENT-PLATE GRAINER APPRENTICE, RAJI Attending Unavailabl e [address] SUPERINTENDENT-PLATE GRAINER APPRENTICE, RAJI Primary Care Unavailabl e [address] SUPERINTENDENT-PLATE GRAINER APPRENTICE, RAJI Primary Care Unavailabl verna MCNULTY MD, AYUSH Attending Danaa ble [address] SUPERINTENDENT-PLATE GRAINER APPRENTICE, RAJI Attending Unavailabl e [address] SUPERINTENDENT-PLATE GRAINER APPRENTICE, RAJI Primary Care Unavailabl e [address] SUPERINTENDENT-PLATE GRAINER APPRENTICE, RAJI Primary Care Unavailabl verna MCNULTY MD, AYUSH Attending Mc WILLIAMSON MD, DR PRABHAKAR Attending Unavailabl e [address] SUPERINTENDENT-PLATE GRAINER APPRENTICE, [place] Primary Care Unavailwanda MCNULTY MD, AYUSH Attending Mc miller [address] SUPERINTENDENT-PLATE GRAINER APPRENTICE, [place] Primary Care Unavailabl e [address] SUPERINTENDENT-PLATE GRAINER APPRENTICE, [place] Primary Care Unavailabl e [address] SUPERINTENDENT-PLATE GRAINER APPRENTICE, RAJI Attending Romeo MCNULTY MD, AYUSH Attending Unavailarik ble [address] SUPERINTENDENT-PLATE GRAINER APPRENTICE, [place] Primary Care Unavailabl e Balt[place] CERTIFIED PEST CONTROL TECHNICIAN, Raji Referring Unavailable Katherin CERTIFIED PEST CONTROL TECHNICIAN, [place] Primary Care Unavailable Abena Guzman Attending Mar Guzman, Abena Attending Mar Wallis CERTIFIED PEST CONTROL TECHNICIAN, [place] Primary Care Abena Farooq Referring Unavailable Allergies Allergy Classification Reported Allergen(s) Allergy Type Date of Onset Reaction(s) Facility (18 sources) Acetaminophen / HYDROcodone; Translations: [acetaminophen-hy drocodone] Drug Allergy [facility] (19 sources) Aspirin; Translations: [aspirin] Drug Allergy 5 Other [facility] Comment on above: Patient said breathi ng issues (20 sources) Erythromycin; Translations: [erythromycin] Drug Allergy 2 [facility] (18 sources) Penicillin; Translations: [penicillins] Drug Allergy [facility] (2 sources) Aluminum aspirin Drug Allergy 2 [facility] (2 sources) Penicillins Propensity to adverse reactions to drug 2 [facility] Work Phone: (1 source) Aspirin Drug Allergy 5 [facility] Repository Medications Current Medications Medication Drug Class(es) Dates Sig (Normalized) Sig (Original) acetaminophen 500 mg oral tablet (3 sources) Start: 05-16-2025 acetaminophen 500 mg oral tablet Dose : 1,000 mg = 2 tab(s), Oral, TID, PRN pain or fever, 0 Refill(s) Start Date: 05/16/25 Status: Ordered Medication Dispense Status: Completed Total Allowed Fills: 1 Fills Dispensed: 0 amitriptyline hydrochloride 25 mg oral tablet (11 sources) Tricyclic Antidepressant Start: 05-16-2025 End: 08-14-2025 amitriptyline 25 mg oral tablet Dose : 25 mg = 1 tab(s), Oral, qHS, # 90 tab(s), 0 Refill(s), [id number], Tension headache, 169, cm, 05/16/25 8:37:00 EDT, Height, kg, 05/16/25 8:34:00 EDT, Dosing Weight Start Date: 05/16/25 Stop Date: 08/14/25 Status: Ordered Medication Dispense Status: Completed Quantity: 90.0 Unit: tab(s) Total Allowed Fills: 1 Fills Dispensed: 0 Indications: Tension-type headache, unspecified, not intractable; Start: 12-19-2024 End: 04-09-2025 amitriptyline 25 mg oral tab let Dose : 25 mg = 1 tab(s), Oral, qHS, # 90 tab(s), 0 Refill(s), [id number], Tension headache, 168.8, cm, 01/09/25 10:01:00 EDT, [...] 0 Refill(s), 06/16/25 9:19:00 AM EDT, [id number], Odontogenic infection of jaw, 152.9, cm, [...] qAM, # 1 EA, 3 Refill(s), Pharmacy: [facility]/pharmacy #[id number], Seasonal allergies, 171, cm, 06/04/24 15:53:00 EDT, Height, kg, 06/04/24 15:53:00 EDT, Dosing Weight Start Date: 06/04/24 Status: Ordered levoFLOXacin 500 mg oral tablet (2 sources) Quinolone Antimicrobial Start: 06-04-2024 End: 06-11-2024 levoFLOXacin 500 mg oral tablet Dose : 500 mg = 1 tab(s), Oral, q24h, X 7 day(s), # 7 tab(s), 0 Refill(s), 06/11/24 4:22:00 PM EDT, Pharmacy: [facility]/pharmacy #4605, Acute sinusitis, 171, cm, 06/04/24 15:53:00 EDT, Height, 62.3, kg, 06/04/24 15:53:00 EDT, Dosing Weight Start Date: 06/04/24 Stop Date: 06/11/24 Status: Ordered Start: 05-03-2024 End: 2024 levoFLOXacin 500 mg oral tab let Dose : 500 mg = 1 tab(s), Oral, q24h, X 7 day(s), # 7 tab(s), 0 Refill(s), 05/10/24 3:48:00 PM EDT, Pharmacy: [facility]/pharmacy #4605, Sinusitis, 169.4, cm, 05/03/24 15:02:00 EDT, Height, 59.8, kg, 05/03/24 15:02:00 EDT, Dosing Weight Start Date: 05/03/24 Stop Date: 05/10/24 Status: Ordered naproxen 500 mg oral tablet (1 source) Nonsteroidal Anti-inflammatory Drug Start: 05-29-2025 End: 06-08-2025 naproxen 500 mg oral tablet Dose : 500 mg = 1 tab(s), Oral, BID, X 10 day(s), # 20 tab(s), 0 Refill(s), 06/08/25 8:32:00 PM EDT Start Date: 05/29/25 Stop Date: 06/08/25 Status: Ordered Medication Dispense Status: Completed Quantity: 20.0 Unit: tab(s) Total Allowed Fills: 1 Fills Dispensed: 0 Post-op shoe (2 sources) Start: 11-09-2021 Post-op shoe S ee Instructions, given in office, # 1 EA, 0 Refill(s), samples given to patient (Rx), Injury of right ankle and foot, 69.3 Start Date: 11/09/21 Status: Ordered tiZANidine 2 mg oral capsule (7 sources) Central alpha-2 Adrenergic Agonist Start: 06-11-2025 End: 07-02-2025 tiZANidine 2 mg oral capsule Dose : 2 mg = 1 cap(s), Oral, qHS, As needed for TMD / jaw pain, # 21 cap(s), 0 Refill(s), [id number], TMJ disease Back tightness, 152.9, cm, 06/11/25 8:58:00 EDT, Height, kg, 06/11/25 8:58:00 EDT, Dosing Weight Start Date: 06/11/25 Stop Date: 07/02/25 Status: Ordered Medication Dispense Status: Completed Quantity: 21.0 Unit: cap(s) Total Allowed Fills: 1 Fills Dispensed: 0 Indications: Unspecified temporomandibular joint disorder, unspecified side; Other specified dorsopathies, site unspecified; Start: 05-31-2025 take [address] [facility] at bedtime as needed Start: 05-16-2025 End: 05-26-2025 tiZANidine 2 mg oral capsule Dose : 2 mg = 1 cap(s), Oral, TID, PRN as needed for muscle spasm, # 30 cap(s), 0 Refill(s), [id number], Back tightness, 169, [...] spasm, # 30 tab(s), 0 Refill(s), [facility], Cervical spondylosis, 170, [...] spasm, # 14 cap(s), 0 Refill(s), [facility], Neck pain Back pain, 169, cm, [...] spasm, # 14 cap(s), 0 Refill(s), [facility], Neck pain Back pain, 168.8, cm, [...] 50 mcg (2000 intl units) oral capsule (14 sources) Start: 05-16-2025 End: 08-14-2025 take 1 tablet by mouth once daily Vitamin D3 50 mcg (2000 intl units) oral capsule 1 tab(s), Oral, Daily, # 90 tab(s), 0 Refill(s), [facility], Vitamin D deficiency, 169, cm, 05/16/25 [...] Daily, # 90 tab(s), 0 Refill(s), [facility], Vitamin D deficiency, [...] Daily, # 90 tab(s), 0 Refill(s), [facility], Vitamin D deficiency, [...] Daily, # 90 tab(s), 0 Refill(s), [facility], Vitamin D deficiency, [...] Daily, # 90 tab(s), 0 Refill(s), [facility], Vitamin D deficiency, 169.4, cm, 05/03/24 [...] qDay, # 30 tab(s), 0 Refill(s), [facility], Low back pain, [...] tab(s), 0 Refill(s), [facility]acy: [facility] Injury of right ankle and foot, 170.2, cm, 11/09/21 9:33:00 EDT, Height, kg, 11/09/21 9:33:00 EDT, Dosing Weight Start Date: 11/09/21 Status: Ordered methylPREDNISolone Dosepak 4 mg tablet (2 sources) Start: 06-11-2025 End: 06-16-2025 take 1 tablet by mouth once daily methylPREDNISolone Dosepak 4 mg tablet 1 packet(s), Oral, qDay, as directed on package labeling, 0 Refill(s) Start Date: 06/11/25 Stop Date: 06/16/25 Status: Ordered Medication Dispense Status: Completed Total Allowed Fills: 1 Fills Dispensed: 0 Problems Active Problems Problem Classification Problem Date Documented Date Episodic/Chronic Asthma (18 sources) Asthma 11-04-2016 Chronic Cardiac dysrhythmias (1 source) Tachyarrhythmia ; Translations: [Tachycardia, unspecified] Episodic Chronic obstructive pulmonary disease and bronchiectasis (18 sources) Chronic obstructive lung disease 11-04-2016 Chronic Disorders of teeth and jaw (3 sources) Dental caries; Translations: [Dental caries, unspecified] Onset: Episodic Fracture of lower limb (1 source) Closed fracture of third metatarsal bone ; Translations: [Displaced fracture of third metatarsal bone, right foot, initial encounter for closed fracture] Episodic Nutritional deficiencies (8 sources) Vitamin D deficiency 03-19-2025 Chronic Osteoporosis (5 sources) Osteoporosis; Translations: [Age-related osteoporosis without current pathological fracture] 05-15-2025 Chronic Comment on above: Osteoporosis likely secondary to primary hyperparathyroidism described in greater detail above. Other connective tissue disease (1 source) Pain in right foot; Translations: [Pain in right foot] Episodic Other endocrine disorders (10 sources) Primary hyperparathyroidism; Translations: [Primary hyperparathyroidism] 03-19-2025 [...] imaging. Other nutritional; endocrine; and metabolic disorders (8 sources) Hypercalcemia 03-19-2025 Chronic Other screening for suspected conditions (not mental disorders or infectious disease) (1 source) Blood chemistry abnormal; Translations: [Other specified abnormal findings of blood chemistry] Episodic Other upper respiratory disease (13 sources) Seasonal allergy 06-04-2024 Chronic Other upper [...] initial encounter] Onset: 1 Episodic Thyroid disorders (13 sources) Thyroid nodule; Translations: [Nontoxic single thyroid [...] 4D CT protocol of the neck. Unclassified (13 sources) Patient encounter status 06-04-2024 Past or Other Problems Problem Classification Problem Date Documented Da te Episodic/Chronic Malaise and fatigue (3 sources) Asthenia; Translations: [Weakness] Onset: 11-06-2024 Episodic Spondylosis; intervertebral disc disorders; other back problems (5 sources) Backache; Translations: [Dorsalgia, unspecified] Onset: 11-06-2024 Episodic Results Test Name Value Interpretation Reference Range Facility [id number] 06-20-2025 Creatinine [Mass/Vol] 31.5 mg/dL Normal Not Estab. [facility] Comment on above: Performed By: #### 1 [id number] ####[address] [place], [place] [address] N-telopeptide Ur 50 nmol BCE Normal Not Estab. [facility] Comment on above: Performed By: #### 1 [id number] ####[address] [place], [place] [address] NTx Creat Ur 18 nM BCE/mM Cr Normal 0-62 [facility] Comment on above: Result Comment: Comm ent The N-telopeptide and Creatinine are used to calculate the N-telo/Creat. Ratio which is referred to as NTx. Suggested guidelines for the clinical use of NTx are as follows: 1. Menopausal Women not on Hormone Replacement Therapy (HRT): Women with a baseline NTx value >38 are at significant risk for a decrease in bone mineral density (BMD) after 1 year compared to women on HRT. The probability of a decline in BMD increases with NTx value as follows: (1): Baseline NTx Probability of Decrease in BMD 18- 38 1.4 p=0.28 38- 51 2.5 p=0.03 51- 67 3.8 p=0.0006 67-188 17.3 p=0.0001 2. Menopausal Women Receiving Antiresorptive Therapy: The probability that treatment is effective after three months is increased when the measured NTx value is or=30% from baseline.[1] 3. Patients with Paget's Disease of Bone: The probability that treatment is effective after one month is increased when the measured NTx value is within the reference range, or NTx has decreased >or=30% from baseline.[2] 1. Rachel CH, Perea NH, Jarett GS, et al. Am J Med, 102:29-37,1996. (1):M757, 1995. 2. Bone H, Denise Ibarra, et al. J Bone Min Res.11(1):M75,1995 Performed At: [facility] [address] [place], [place] [id number] Prince Gutierrez MD Ph:[phone] Performed At: [facility] [address] [id number] Bakari Bernal PhD Ph:[phone] Performed By: #### 1 [id number] ####[address] [place], [place] [address] Soft Tissue Neck W/WO Contra ston 06-19-2025 Soft Tissue Neck W/WO Contrast [facility] [address] [place] [id number] Soft Tissue Neck W/WO Contrast MR#: [id number] Acct: [id number] Name: PRIMITIVOMARIBEL J Rep #: [id number] : 1975 M 50 From: Jaguar Padilla MD PCP: DIVYA Gomez Status: REG CLI Study: Soft Tissue Neck W/WO Contrast Date of Exam: Exam# [id number] Ordering Dr: Abena Guzman MD PROCEDURE: SOFT TISSUE NECK W/WO CONTRAST 06/19/2025 REASON FOR EXAM: PARATHYROID TECHNIQUE: Procedure Code: CTNEWW Modality: CT Procedure: SOFT TISSUE NECK W/WO CONTRAST CONTRAST: Isovue 370 VOLUME: 100 mL One or more dose reduction techniques were used (e.g., Automated exposure control, adjustment of the mA and/or kV according to patient size, use of iterative reconstruction technique). RADIATION DOSE SUMMARY: CTDlvol: 20 mGy DLP: 586 mGycm FINDINGS: This study was performed without and with contrast according to the institutions parathyroid protocol. I am assuming that there is an elevated parathyroid hormone level. Correlated with prior nuclear medicine examination of 06/27/2024. Inspection of the right neck demonstrates normal carotid space without ectopic lesion. Inferiorly, there is a small area of oval enhancement dorsal to the right thyroid gland on image 76 of 108 of the initial contrasted examination. This is seen immediately adjacent to the esophagus and measures 6 by 3 mm. On the left, there is a lesion which was considered intrathyroidal which measures 64 Hounsfield units prior to contrast and 221 Hounsfield units initially and 113 Hounsfield units on initial delayed images. It should be noted that there is also accompanying washout in the thyroid gland. This lesion measures 17 x 10 mm. Interestingly, this lesion also demonstrated increased activity on delayed images in the nuclear medicine examination. There is no ectopic lesion superiorly on the left side. CT/Soft Tissue Neck W/WO Contrast IMPRESSION: 1. There are 2 lesions which may represent possible parathyroid pathology. The smaller 1 measures 6 x 3 mm seen to the right of the esophagus. The 2nd is difficult to separate from the thyroid gland but demonstrated increased activity on delayed images and on the arterial and delayed images has a different density than the thyroid gland and is less dense on precontrast images. 2. There are no superior mediastinal lesions. Please note that the study did not extend down to the jens [facility] CC: DIVYA Wallis; Dr. Abena Guzman MD Supervisor Finishing: Signed Normal [facility] .GFRon 06-14-2025 Estimated Glomerular Filtration Rate 103 ml/min/1.73sqm [facility] Comment on above: Result Comment: Stages [...] PHOS, FT4, MG, VIDH, CMP, TSH, CAION ####[place] [address]#### PTH ####[place] [address] CAIONon 06-14-2025 Calcium Ionized 1.45 mmol/L High 1.12-1.32 [facility] Comment on above: Performed By: #### G FR, PHOS, FT4, MG, VIDH, CMP, TSH, CAION ####[place] [address]#### PTH ####[place] [address] CAURon 06-14-2025 Calcium [Mass/Vol] 14.0 mg/dL Normal [facility] Comment on above: Performed By: #### C RUR ####[place] [address]#### CAUR ####[place] [address] CMPon 06-14-2025 Albumin Level 3.6 G/dL Normal 3.5-5.0 [facility] Comment on above: Performed By: #### G FR, PHOS, FT4, MG, VIDH, CMP, TSH, CAION ####[place] [address]#### PTH ####[place] [address] Albumin/Globulin [Mass ratio] 1.0 {ratio} Low 1.1-2.5 [facility] Comment on above: Performed By: #### G FR, PHOS, FT4, MG, VIDH, CMP, TSH, CAION ####[place] [address]#### PTH ####[place] [address] ALP [Catalytic activity/Vol] 113 U/L Normal 40-135 [facility] Comment on above: Performed By: #### G FR, PHOS, FT4, MG, VIDH, CMP, TSH, CAION ####[place] [address]#### PTH ####[place] [address] ALT [Catalytic activity/Vol] 38 U/L Normal 16-63 [facility] Comment on above: Performed By: #### G FR, PHOS, FT4, MG, VIDH, CMP, TSH, CAION ####[place] [address]#### PTH ####[place] [address] AST [Catalytic activity/Vol] 13 U/L Normal 10-40 [facility] Comment on above: Performed By: #### G FR, PHOS, FT4, MG, VIDH, CMP, TSH, CAION ####[place] [address]#### PTH ####[place] [address] Bili Total 0.4 mg/dL Normal 0.2-1.0 [facility] Comment on above: Result Comment: Use of this assay is not recommended for patients undergoing treatment with eltrombopag due to the potential for falsely elevated results. Performed By: #### G FR, PHOS, FT4, MG, VIDH, CMP, TSH, CAION ####[place] [address]#### PTH ####[place] [address] BUN/Creatinine Ratio 9 ratio Normal 7-27 [facility] Comment on above: Performed By: #### G FR, PHOS, FT4, MG, VIDH, CMP, TSH, CAION ####[place] [address]#### PTH ####[place] [address] Calcium [Mass/Vol] 12.0 mg/dL High 8.4-10.2 [facility] Comment on above: Performed By: #### G FR, PHOS, FT4, MG, VIDH, CMP, TSH, CAION ####[place] [address]#### PTH ####[place] [address] Chloride [Moles/Vol] 101 mmol/L Normal 98-107 [facility] Comment on above: Performed By: #### G FR, PHOS, FT4, MG, VIDH, CMP, TSH, CAION ####[place] [address]#### PTH ####[place] [address] CO2 [Moles/Vol] 31 mmol/L High 22-29 [facility] Comment on above: Performed By: #### G FR, PHOS, FT4, MG, VIDH, CMP, TSH, CAION ####[place] [address]#### PTH ####[place] [address] Creatinine [Mass/Vol] 0.89 mg/dL Normal 0.67-1.17 [facility] Comment on above: Performed By: #### G FR, PHOS, FT4, MG, VIDH, CMP, TSH, CAION ####[place] [address]#### PTH ####[place] [address] Electrolyte Balance 5.0 mEq/L Normal 4.0-15.0 [facility] Comment on above: Performed By: #### G FR, PHOS, FT4, MG, VIDH, CMP, TSH, CAION ####[place] [address]#### PTH ####[place] [address] Globulin 3.7 G/dL Normal 2.7-4.4 [facility] Comment on above: Performed By: #### G FR, PHOS, FT4, MG, VIDH, CMP, TSH, CAION ####[place] [address]#### PTH ####[address] [address] Glucose [Mass/Vol] 78 mg/dL Normal 70-105 [facility] Comment on above: Performed By: #### G FR, PHOS, FT4, MG, VIDH, CMP, TSH, CAION ####[place] [address]#### PTH ####[place] [address] Potassium [Moles/Vol] 4.1 mmol/L Normal 3.5-5.1 [facility] Comment on above: Performed By: #### G FR, PHOS, FT4, MG, VIDH, CMP, TSH, CAION ####[place] [address]#### PTH ####[place] [address] Sodium [Moles/Vol] 137 mmol/L Normal 136-145 [facility] Comment on above: Performed By: #### G FR, PHOS, FT4, MG, VIDH, CMP, TSH, CAION ####[place] [address]#### PTH ####[place] [address] Total Protein 7.3 G/dL Normal 6.4-8.2 [facility] Comment on above: Performed By: #### G FR, PHOS, FT4, MG, VIDH, CMP, TSH, CAION ####[place] [address]#### PTH ####[place] [address] Urea nitrogen [Mass/Vol] 8 mg/dL Normal 7-18 [facility] Comment on above: Performed By: #### G FR, PHOS, FT4, MG, VIDH, CMP, TSH, CAION ####[place] [address]#### PTH ####[place] [address] CRURon 06-14-2025 U Creatinine 32.6 mg/dL Normal [facility] Comment on above: Performed By: #### C RUR ####[place] [address]#### CAUR ####[place] [address] FT4on 06-14-2025 Free T4 [Mass/Vol] 1.00 ng/dL Normal 0.76-1.46 [facility] Comment on above: Performed By: #### G FR, PHOS, FT4, MG, VIDH, CMP, TSH, CAION ####[place] [address]#### PTH ####[place] [address] LABORATORYOrdered By: Connie Urbina on 06-14-2025 Calcium [...] 06-14-2025 Magnesium [Mass/Vol] 2.1 mg/dL Normal 1.8-2.4 [facility] Comment on above: Performed By: #### G FR, PHOS, FT4, MG, VIDH, CMP, TSH, CAION ####[place] [address]#### PTH ####[place] [address] PHOSon 06-14-2025 Phosphate [Mass/Vol] 3.0 mg/dL Normal 2.7-4.5 [facility] Comment on above: Performed By: #### G FR, PHOS, FT4, MG, VIDH, CMP, TSH, CAION ####[place] [id number]#### PTH ####[place] [address] PTHon 06-14-2025 PTH, Intact 100.5 pg/mL High 18.5-88.0 [facility] Comment on above: Performed By: #### G FR, PHOS, FT4, MG, VIDH, CMP, TSH, CAION ####[facility] [place] [address]#### PTH ####[place] [address] TSHon 06-14-2025 TSH Qn 1.27 m[IU]/L Normal 0.36-3.74 [facility] Comment on above: Performed By: #### G FR, PHOS, FT4, MG, VIDH, CMP, TSH, CAION ####[address] [place] [address]#### PTH ####[place] [address] VIDHon 06-14-2025 Vit. D 25-Hydroxy 31.5 ng/mL Normal [facility] Comment on above: Result Comment: Inte rpretive Values Based on Total 25(OH) Vitamin D: Deficient <20 ng/mL Insufficient 20 - <30 ng/mL Sufficient 30-100 ng/mL Performed By: #### G FR, PHOS, FT4, MG, VIDH, CMP, TSH, CAION ####[address] [place] [address]#### PTH ####[place] [address] Surgery Visit Reporton 05-31 Surgery Visit Report [facility] [address] [place] [address] [address] [place] [address] OFFICE VISIT Date of Service: 05/31/25 MR#: [id number] Acct: [id number] Name: MARIBEL LANGFORD Fred Rep #: [id number] : 1975 Provider: Dr. Abena cai MD Age/Sex: 50/M Location: [facility] Status: Signed Intake Vital Signs 05/31/25 09:50 [...] calcium: 1 (more content not included)... Normal [facility] [employer] Cytology Reporton [employer] Cytology Report . Pathology Reports Accession: Collected Date/Time: Received Date/Time: Pathologist: [id number] 04/18/2025 17:19 EDT 04/19/2025 08:59 EDT DALE SIMON MD Non-President [employer] Cytology Report CLINICAL INFORMATION: Thyroid nodule E04.1 [...] was evaluated using criteria described in [employer] System for Reporting Thyroid Cytopathology, Second Edition [...] lobectomy Verified by Pathology Report verified by [facility] Screened by: LAUREN NG Electronically signed by DALE SIMON Sign-Out Date: 04/23/2025 11:50 Performing Lab: [facility], [address] [place] [address] Pathology Dept Disclaimer If ancillary studies were utilized, the following Laboratory Developed Test (LDT) disclaimer will apply: Pathology Reports Accession: Collected Date/Time: Received Date/Time: Pathologist: [id number] 04/18/2025 17:19 EDT 04/19/2025 08:59 EDT DALE SIMON MD Disclaimer Under CLIA requirements, [facility] is qualified to perform high complexity testing. For all ancillary stains, positive and negative controls stain appropriately. Performance characteristics of immunohistochemical and chromogenic in-situ hybridization tests have been determined by [facility]. These tests are used for clinical purposes, They should not be regarded as investigational or for research. Normal [facility] MRI SPINE CERVICAL W/O CONTR Sandra 03-29-2025 [...] Sign Date: 03/29/2025 11:30:43 AM Ordering Provider: EARL Mcnally [facility] BD BONE DENSITY DEXA AXIAL S Evangelina [...] risk by FRAX. IMPRESSION: Osteoporosis. Interpreted by: Shalini Stephens MD Preliminary Report By: Shalini Stephens MD Electronically signed By Shalini Stephens MD Dictated Date: 03/25/2025 11:52:16 PM Prelim Date: 03/25/2025 11:53:48 PM Sign Date: 03/25/2025 11:53:48 PM Ordering Provider: AYUSH MCNULTY [facility] US THYROIDon 03-25-2025 US THYROID ORIGINAL [...] 03/25/2025 11:16:56 AM Ordering Provider: AYUSH MCNULTY [facility] RICKDD 03-25-2025 Vit D 125 di-OH 80.0 pg/mL Normal 24.8-81.5 [facility] Comment on above: Result Comment: Perf ormed At: [facility] [id number] Prince Gutierrez MD Ph:[phone] Performed By: #### T SH, FT3, PHOS, FT4, MG, VIDH, CAION, CMP, GFR, [id number] ####[facility] [place], [place] [address]#### THYAB, PTH ####[address] [address] .GFRon 03-20-2025 Estimated Glomerular Filtration Rate 102 ml/min/1.73sqm [facility] Comment on above: Result Comment: Stages [...] calculate the eGFR results. Performed By: #### T SH, FT3, PHOS, FT4, MG, VIDH, CAION, CMP, GFR, [id number] ####[place] [address]#### THYAB, PTH ####[place] [address] CAIONon 03-20-2025 Calcium Ionized 1.31 mmol/L Normal 1.12-1.32 [facility] Comment on above: Performed By: #### T SH, FT3, PHOS, FT4, MG, VIDH, CAION, CMP, GFR, [id number] ####[place] [address]#### THYAB, PTH ####[place] [address] CAURon 03-20-2025 Calcium [Mass/Vol] 12.0 mg/dL Normal [facility] Comment on above: Performed By: #### C AUR ####[place] [address]#### CRUR ####[place] [id number] CKon 03-20-2025 CK [Catalytic activity/Vol] 68 U/L Normal 39-308 [facility] Comment on above: Performed By: #### C K #### [address] [address] CMPon 03-20-2025 Albumin Level 3.9 G/dL Normal 3.5-5.0 [facility] Comment on above: Performed By: #### T SH, FT3, PHOS, FT4, MG, VIDH, CAION, CMP, GFR, [id number] ####[place] [address]#### THYAB, PTH ####[place] [address] Albumin/Globulin [Mass ratio] 1.1 {ratio} Normal 1.1-2.5 [facility] Comment on above: Performed By: #### T SH, FT3, PHOS, FT4, MG, VIDH, CAION, CMP, GFR, 139116 ####[place] [address]#### THYAB, PTH ####[place] [address] ALP [Catalytic activity/Vol] 92 U/L Normal 40-135 [facility] Comment on above: Performed By: #### T SH, FT3, PHOS, FT4, MG, VIDH, CAION, CMP, GFR, 873884 ####[place] [address]#### THYAB, PTH ####[place] [address] ALT [Catalytic activity/Vol] 33 U/L Normal 16-63 [facility] Comment on above: Performed By: #### T SH, FT3, PHOS, FT4, MG, VIDH, CAION, CMP, GFR, 355838 ####[place] [address]#### THYAB, PTH ####[place] [id number] AST [Catalytic activity/Vol] 21 U/L Normal 10-40 [facility] Comment on above: Performed By: #### T SH, FT3, PHOS, FT4, MG, VIDH, CAION, CMP, GFR, 074616 ####[place] [id number]#### THYAB, PTH ####[address] [address] Bili Total 0.2 mg/dL Normal 0.2-1.0 [facility] Comment on above: Result Comment: Use of this assay is not recommended for patients undergoing treatment with eltrombopag due to the potential for falsely elevated results. Performed By: #### T SH, FT3, PHOS, FT4, MG, VIDH, CAION, CMP, GFR, 138777 ####[place] [address]#### THYAB, PTH ####[place] [address] BUN/Creatinine Ratio 15 ratio Normal 7-27 [facility] Comment on above: Performed By: #### T SH, FT3, PHOS, FT4, MG, VIDH, CAION, CMP, GFR, 218719 ####[place] [address]#### THYAB, PTH ####[address] [address] Calcium [Mass/Vol] 11.0 mg/dL High 8.4-10.2 [facility] Comment on above: Performed By: #### T SH, FT3, PHOS, FT4, MG, VIDH, CAION, CMP, GFR, 774425 ####[place] [address]#### THYAB, PTH ####[address] [address] Chloride [Moles/Vol] 102 mmol/L Normal 98-107 [facility] Comment on above: Performed By: #### T SH, FT3, PHOS, FT4, MG, VIDH, CAION, CMP, GFR, 588500 ####[place] [address]#### THYAB, PTH ####[address] [address] CO2 [Moles/Vol] 28 mmol/L Normal 22-29 [facility] Comment on above: Performed By: #### T SH, FT3, PHOS, FT4, MG, VIDH, CAION, CMP, GFR, 059098 ####[place] [address]#### THYAB, PTH ####[place] [address] Creatinine [Mass/Vol] 0.91 mg/dL Normal 0.67-1.17 [facility] Comment on above: Performed By: #### T SH, FT3, PHOS, FT4, MG, VIDH, CAION, CMP, GFR, 181437 ####[place] [address]#### THYAB, PTH ####[place] [address] Electrolyte Balance 6.0 mEq/L Normal 4.0-15.0 [facility] Comment on above: Performed By: #### T SH, FT3, PHOS, FT4, MG, VIDH, CAION, CMP, GFR, 281562 ####[place] [address]#### THYAB, PTH ####[place] [address] Globulin 3.4 G/dL Normal 2.7-4.4 [facility] Comment on above: Performed By: #### T SH, FT3, PHOS, FT4, MG, VIDH, CAION, CMP, GFR, 549666 ####[place] [address]#### THYAB, PTH ####[place] [address] Glucose [Mass/Vol] 99 mg/dL Normal 70-105 [facility] Comment on above: Performed By: #### T SH, FT3, PHOS, FT4, MG, VIDH, CAION, CMP, GFR, 268713 ####[place] [address]#### THYAB, PTH ####[place] [address] Potassium [Moles/Vol] 4.2 mmol/L Normal 3.5-5.1 [facility] Comment on above: Performed By: #### T SH, FT3, PHOS, FT4, MG, VIDH, CAION, CMP, GFR, 153124 ####[place] [address]#### THYAB, PTH ####[place] [address] Sodium [Moles/Vol] 136 mmol/L Normal 136-145 [facility] Comment on above: Performed By: #### T SH, FT3, PHOS, FT4, MG, VIDH, CAION, CMP, GFR, 608890 ####[place] [address]#### THYAB, PTH ####[place] [address] Total Protein 7.3 G/dL Normal 6.4-8.2 [facility] Comment on above: Performed By: #### T SH, FT3, PHOS, FT4, MG, VIDH, CAION, CMP, GFR, 592521 ####[place] [address]#### THYAB, PTH ####[place] [address] Urea nitrogen [Mass/Vol] 14 mg/dL Normal 7-18 [facility] Comment on above: Performed By: #### T SH, FT3, PHOS, FT4, MG, VIDH, CAION, CMP, GFR, 033529 ####[place] [address]#### THYAB, PTH ####[place] [address] CRURon 03-20-2025 U Creatinine 61.9 mg/dL Normal [facility] Comment on above: Performed By: #### C AUR ####[place] [address]#### CRUR ####[address] [address] FT3on 03-20-2025 Free T3 [Mass/Vol] 2.86 pg/mL Normal 2.30-4.00 [facility] Comment on above: Performed By: #### T SH, FT3, PHOS, FT4, MG, VIDH, CAION, CMP, GFR, 483545 ####[place] [address]#### THYAB, PTH ####[place] [address] FT4on 03-20-2025 Free T4 [Mass/Vol] 0.82 ng/dL Normal 0.76-1.46 [facility] Comment on above: Performed By: #### T SH, FT3, PHOS, FT4, MG, VIDH, CAION, CMP, GFR, 207796 ####Yogesh [address] [address]#### THYAB, PTH ####[place] [address] LABORATORYOrdered By: Esteban Venegas on 03-20-2025 Calcium (U) [Mass/Vol] 12.0 mg/dL Invalid Interpretation Code ADM SS LABORATORYOrdered By: SYSTEM SYSTEM on [...] 03-20-2025 Magnesium [Mass/Vol] 2.2 mg/dL Normal 1.8-2.4 [facility] Comment on above: Performed By: #### T SH, FT3, PHOS, FT4, MG, VIDH, CAION, CMP, GFR, 990337 ####[place] [address] [place], [place] [address]#### THYAB, PTH ####[address] [address] PHOSon 03-20-2025 Phosphate [Mass/Vol] 2.5 mg/dL Low 2.7-4.5 [facility] Comment on above: Performed By: #### T SH, FT3, PHOS, FT4, MG, VIDH, CAION, CMP, GFR, 238066 ####[place] [address]#### THYAB, PTH ####[place] [address] PTHon 03-20-2025 PTH, Intact 180.8 pg/mL High 18.5-88.0 [facility] Comment on above: Performed By: #### T SH, FT3, PHOS, FT4, MG, VIDH, CAION, CMP, GFR, 869152 ####[place] [address]#### THYAB, PTH ####[place] [address] THYABon 03-20-2025 anti-Thyroid Peroxidase 36 units/ml Normal 0-60 [facility] Comment on above: Performed By: #### T SH, FT3, PHOS, FT4, MG, VIDH, CAION, CMP, GFR, 484539 ####[place] [address]#### THYAB, PTH ####[place] [address] Thyroglobulin Ab 22 units/ml Normal 15-60 [facility] Comment on above: Performed By: #### T SH, FT3, PHOS, FT4, MG, VIDH, CAION, CMP, GFR, 269542 ####[place] [address]#### THYAB, PTH ####[place] [address] TSHon 03-20-2025 TSH Qn 1.36 m[IU]/L Normal 0.36-3.74 [facility] Comment on above: Performed By: #### T SH, FT3, PHOS, FT4, MG, VIDH, CAION, CMP, GFR, 359611 ####[place] [address]#### THYAB, PTH ####[place] [id number] [address] [place] [address] VIDHon 03-20-2025 Vit. D 25-Hydroxy 26.5 ng/mL Normal [facility] Comment on above: Result Comment: Inte rpretive Values Based on Total 25(OH) Vitamin D: Deficient <20 ng/mL Insufficient 20 - <30 ng/mL Sufficient 30-100 ng/mL Performed By: #### T SH, FT3, PHOS, FT4, MG, VIDH, CAION, CMP, GFR, 726551 ####[facility] [place], [place] [address]#### THYAB, PTH ####[place] [id number] [address] [place], [place] [id number] XR SPINE CERVICAL AP/LATon 0 11-17-2024 XR [...] Date: 11/17/2024 1:05:56 PM Ordering Provider: RAJI Mcnally [facility] XR SPINE LUMBAR AP/LATon XR SPINE LUMBAR [...] 11/17/2024 1:01:55 PM Ordering Provider: RAJI WALLIS [facility] XR SPINE THORACIC 2 VIEWSon 11-17-2024 [...] 11/17/2024 1:03:31 PM Ordering Provider: RAJI WALLIS [facility] US THYROIDon 08-01-2024 US THYROID ORIGINAL EXAMINATION: ULTRASOUND OF THE THYROID WITH COLOR DOPPLER FLOW MUZWEQUSOP60/10/2024 5:05 pm Ultrasound Thyroid All images were recorded and archived. COMPARISON: October 13, 2015, on [facility] June 27, 2024 HISTORY: ORDERING SYSTEM [...] Date: 08/01/2024 1:58:00 PM Ordering Provider: RAJI Mcnally [facility] PARATHYROID STUDY 06-29 [place] PARATHYROID STUDY ORIGINAL EXAMINATION: PARATHYROID PTRWILMEPNWV82/6/2024 4:25 pm TECHNIQUE: 30 mCi of Tc [...] localization of extrathyroid parathyroid adenoma. Interpreted by: Shalini Stephens MD Preliminary Report By: Shalini Stephens MD Electronically signed By Shalini Stephens MD Dictated Date: 06/29/2024 3:53:17 PM Prelim Date: 06/29/2024 4:23:32 PM Sign Date: 06/29/2024 4:23:32 PM Ordering Provider: RAJI WALLIS [facility] MAIN LABORATORYOrdered By: SYSTEM SYSTEM on [...] 255.9 pg/mL High 18.5 - 88.0 pg/mL AH ADM SS LABORATORYOrdered By: SYSTEM SYSTEM [...] high risk CR Foot Complete 3+ Views Ollie leija 03-05-2022 CR Foot Complete 3+ Views Right Patient Name: MARIBEL LANGFORD Diagnostic Radiology ACCESSION EXAM DATE/TIME PROCEDURE ORDERING PROVIDER [id number] 03/05/2022 13:28 EDT CR Foot Complete 3+ [id number] -KRUPAGAIL WISE Views Right CPT code 21562 Reason For Exam (CR Foot Complete 3+ [...] and Time: 03/08/2022 10:30 Normal [facility] CR Foot Complete 3+ Views [facility] 01-15-2022 CR Foot Complete 3+ Views Right [facility]: [id number] ACCESSION EXAM DATE/TIME PROCEDURE ORDERING PROVIDER [id number] 01/15/2022 12:50 EDT CR Foot Complete 3+ [id number] -GAIL ZELAYA Views Right CPT code 00774 Reason For Exam (CR Foot Complete 3+ [...] and Time: 01/18/2022 6:58 Normal [facility] CR Foot Complete 3+ Views Ri liss 12-04-2021 CR Foot Complete 3+ Views Right Patient Name: MARIBEL LANGFORD Diagnostic Radiology ACCESSION EXAM DATE/TIME PROCEDURE ORDERING PROVIDER [id number] 12/04/2021 11:04 EDT CR Foot Complete 3+ [id number] -GAIL ZELAYA Views Right CPT code 02132 Reason For Exam (CR Foot Complete 3+ [...] NEIL Transcribed Date and Time: 12/05/2021 1:10 Normal [facility] Vital Signs Date Time Vital Sign Value Performing Clinician Faci jayey 06-20-2025 12:32-0400 Body temperature 97.7 [degF] AYUSH MCNULTY MD [facility] 06-20-2025 12:32-0400 Diastolic Blood Pressure Non-Invasive 85 mm[Hg] AYUSH MCNULTY MD [facility] 06-20-2025 12:32-0400 Heart rate 91 /min AYUSH MCNULTY MD [facility] 06-20-2025 12:32-0400 Reason For Taking VItal Signs AYUSH MCNULTY MD [facility] 06-20-2025 12:32-0400 Respiratory rate 16 /min AYUSH MCNULTY MD [facility] 06-20-2025 12:32-0400 Systolic Blood Pressure Non-Invasive 146 mm[Hg] AYUSH MCNULTY MD [facility] 05-31-2025 09:50-0400 Body height 175.26 cm Raji Baltes CERTIFIED PEST CONTROL TECHNICIAN-C Work Phone: [facility] 05-31-2025 09:50-0400 Body mass index (BMI) [Ratio] 22.3 kg/m2 Raji Baltes CERTIFIED PEST CONTROL TECHNICIAN-C Work Phone: [facility] 05-31-2025 09:50-0400 Body weight 68.49 kg Raji Baltes CERTIFIED PEST CONTROL TECHNICIAN-C Work Phone: [facility] 05-31-2025 09:50-0400 Diastolic blood pressure 91 mm[Hg] Raji Baltes CERTIFIED PEST CONTROL TECHNICIAN-C Work Phone: [facility] 05-31-2025 09:50-0400 Heart rate 115 /min Raji Wallis CERTIFIED PEST CONTROL TECHNICIAN-C Work Phone: [facility] 05-31-2025 09:50-0400 Respiratory rate 17 /min Raji Wallis CERTIFIED PEST CONTROL TECHNICIAN-C Work Phone: [facility] 05-31-2025 09:50-0400 SaO2% (BldA) [Mass fraction] 98 % Raji Wallis CERTIFIED PEST CONTROL TECHNICIAN-C Work Phone: [facility] 05-31-2025 09:50-0400 Systolic blood pressure 137 mm[Hg] Raji Wallis CERTIFIED PEST CONTROL TECHNICIAN-C Work Phone: [facility] 05-29-2025 20:24-[address] Cuff Size [address] AKI WILLIAMSON MD [facility] 05-29-2025 20:24-[address] AKI WILLIAMSON MD [facility] 05-29-2025 20:24-[address] AKI WILLIAMSON MD [facility] 05-29-2025 20:24-0400 Body temperature 97.16 [degF] DR AKI WILLIAMSON MD [facility] 05-29-2025 20:24-0400 Diastolic Blood Pressure Non-Invasive 87 mm[Hg] DR AKI WILLIAMSON MD [facility] 05-29-2025 20:24-0400 Heart rate 104 /min DR AKI WILLIAMSON MD [facility] 05-29-2025 20:24-0400 Respiratory rate 16 /min DR AKI WILLIAMSON MD [facility] 05-29-2025 20:24-0400 Systolic Blood Pressure Non-Invasive 128 mm[Hg] DR AKI WILLIAMSON MD [facility] 03-19-2024 22:52-0400 Blood Pressure Location LAURI GARCIA DO [facility] 03-19-2024 22:52-0400 Blood Pressure Method NIDAL CHOUJAA DO [facility] 03-19-2024 22:52-0400 Body height 172.7 cm NIDAL CHOUJAA DO [facility] 03-19-2024 22:52-0400 Body temperature 97.7 [degF] NIDAL CHOUJAA DO [facility] 03-19-2024 22:52-0400 Body weight 70.5 kg NIDAL CHOUJAA DO [facility] 03-19-2024 22:52-0400 Diastolic Blood Pressure Non-Invasive 81 mm[Hg] NIDAL CHOUJAA DO [facility] 03-19-2024 22:52-0400 Heart rate 99 /min NIDAL CHOUJAA DO [facility] 03-19-2024 22:52-0400 Respiratory rate 16 /min NIDAL CHOUJAA DO [facility] 03-19-2024 22:52-0400 Systolic Blood Pressure Non-Invasive 118 mm[Hg] NIDAL CHOUJAA DO [facility] 08-03-2021 11:11-0500 Body height 172 cm MORTEZA BADILLO MD [facility] 08-03-2021 11:11-0500 Body temperature 98.42 [degF] MORTEZA BADILLO MD [facility] 08-03-2021 11:11-0500 Body weight 68.2 kg MORTEZA BADILLO MD [facility] 08-03-2021 11:11-0500 Diastolic blood pressure 109 mm[Hg] MORTEZA BADILLO MD [facility] 08-03-2021 11:11-0500 Heart rate 94 /min MORTEZA BADILLO MD [facility] 08-03-2021 11:11-0500 Respiratory rate 16 /min MORTEZA BADILLO MD [facility] 08-03-2021 11:11-0500 Systolic blood pressure 153 mm[Hg] MORTEZA BADILLO MD [facility] Encounters Encounter Date Encounter Type Care Provider Facility Start: 06-20-2025 End: 06-20-[address] SUPERINTENDENT-PLATE GRAINER APPRENTICE Facility:[facility] Start: 06-20-2025 End: 06-20-2025 SAME DAY STAY AYUSH MCNULTY MD [facility] Start: 06-19-2025 End: 06-19-2025 ambulatory Abena Guzman Facility:[facility] Start: 06-14-2025 End: 06-14-[address] SUPERINTENDENT-PLATE GRAINER APPRENTICE [facility] Start: 06-14-2025 End: 06-14-2025 Patient encounter procedure AYUSH MCNULTY MD [facility] Start: 05-31-2025 End: 05-31-[address] Abena Guzman MD -[facility] Work Phone: Start: 05-31-2025 End: 05-31-2025 ambulatory Raji Wallis CERTIFIED PEST CONTROL TECHNICIAN-C Work Phone: -[facility] Start: 05-29-2025 End: 05-29-2025 Emergency department patient visit DR AKI WILLIAMSON MD [facility] Start: 04-18-2025 End: 04-18-2025 ambulatory AYUSH MCNULTY MD Facility:[facility] Start: 04-18-2025 End: 04-18-2025 Patient encounter procedure AYUSH MCNULTY MD [facility] Start: 03-29-2025 End: 03-29-2025 ambulatory [facility]ALR CO[facility]OS [facility] Start: 03-29-2025 End: 03-29-2025 Patient encounter procedure EARL COBOS DO [facility] Start: 03-25-2025 End: 03-25-2025 ambulatory AYUSH MCNULTY MD Facility:[facility] Start: 03-25-2025 End: 03-25-2025 Patient encounter procedure AYUSH MCNULTY MD [facility] Start: 03-20-2025 End: 03-20-[address] SUPERINTENDENT-PLATE GRAINER APPRENTICE [facility] Start: 03-20-2025 End: 03-20-2025 Patient encounter procedure AYUSH MCNULTY MD [facility] Start: 03-12-2025 End: 03-12-2025 ambulatory EARL COBOS DO Facility:A Start: 03-12-2025 End: 03-12-2025 Minor Procedure EARL COBOS DO [facility] Start: 12-20-[address] SUPERINTENDENT-PLATE GRAINER APPRENTICE Fa cility:[facility] Start: 11-16-2024 End: 11-16-[address] SUPERINTENDENT-PLATE GRAINER APPRENTICE Facility:[facility] Start: 11-06-2024 End: 12-21-[address] SUPERINTENDENT-PLATE GRAINER APPRENTICE Facility:[facility] Start: 11-06-2024 End: 12-21-2024 Physical therapy management RAJI [address] SUPERINTENDENT-PLATE GRAINER APPRENTICE [facility] Start: 07-31-2024 End: 07-31-[address] SUPERINTENDENT-PLATE GRAINER APPRENTICE Facility:[facility] Start: 07-31-2024 End: 07-31-2024 Patient encounter procedure RAJI WALL[address] SUPERINTENDENT-PLATE GRAINER APPRENTICE [facility] Start: 06-27-2024 End: 06-27-[address] SUPERINTENDENT-PLATE GRAINER APPRENTICE Facility:[facility] Start: 06-27-2024 End: 06-27-2024 Patient encounter procedure RAJI WALL[address] SUPERINTENDENT-PLATE GRAINER APPRENTICE [facility] Start: 06-15-[address] SUPERINTENDENT-PLATE GRAINER APPRENTICE Fa cility:A Start: 06-04-2024 End: 06-04-2024 Patient encounter procedure RAJI WALLIS [address] SUPERINTENDENT-PLATE GRAINER APPRENTICE [facility] Start: 05-29-2024 End: 05-29-2024 Patient encounter procedure RAJI WALL[address] SUPERINTENDENT-PLATE GRAINER APPRENTICE [facility] Start: 05-04-2024 End: 05-04-2024 Patient encounter procedure RAJI W[address] SUPERINTENDENT-PLATE GRAINER APPRENTICE [facility] Start: 03-19-2024 End: 03-19-2024 Emergency department patient visit LAURI GARCIA DO [facility] Start: 03-05-2022 End: 03-05-2022 Subsequent hospital visit by physician Gail KILPATRICK Work Phone: [facility] Comment on above: Closed displaced fra cture of third metatarsal bone of right foot, initial encounter Start: 12-04-2021 End: 12-04-2021 Subsequent hospital visit by physician Gail KILPATRICK Work Phone: [facility] Comment on above: Right foot pain Start: 11-09-2021 End: 11-09-2021 Patient encounter procedure [address] SUPERINTENDENT-PLATE GRAINER APPRENTICE [facility] Start: 08-03-2021 End: 08-03-2021 Emergency department patient visit MORTEZA BADILLO MD [facility] Start: 11-14-2020 End: 11-14-2020 Discharged Recurring [facility]-Immunizations Plan of Treatment Date Care Activity Detail Author Start: 05-31-2025 24 hour urine calciu m output measurement [facility] Start: 04-22-2022 Influenza vaccination S [facility] Start: 01-08-2022 End: 01-08-2022 Patient encounter procedure 01/08/2022 Office Visit Orthopedic Surgery Earl Cheng MD [address] [facility] [address] [place] [id number] [facility] Elena Start: 2018 Screening for malign ant neoplasm [...] Hepatitis C sc reen [facility] End: 12-04-2021 XR FOOT RIGHT (MIN 3 VIEWS) [facility] Work Phone: Comment on above: 1 Occurrences starti ng 12/04/2021 until 12/04/2021 End: 03-05-2022 [facility] [address] [facility] Work Phone: Comment on above: 1 Occurrences starti ng 03/05/2022 until 03/05/2022 Immunizations Immunization Date Immunization Notes Care Provider Fa cili 09-23-2021 COVID-19, mRNA, LNP- S, PF, 30 mcg/0.3 mL dose; Translations: [[employer] COVID-19 Vaccine] [facility] [employer] [facility] 12-05-2020 SARS-CoV-2 mRNA (tozinameran) vaccine [facility] Comment on above: Result Comment: 2020: [id number] 11-14-2020 SARS-CoV-2 mRNA (tozinameran) [facility] Comment on above: Result Comment: 2020: [id number] Payers Date Payer Category Payer Self-pay 2024 Private Health Insurance [id number] 2023 Medicaid [id number] 2023 Private Health Insurance [id number] 1973 Unknown [id number] 2.16.8 [id number] 1973 Unknown [id number] 2.16. 840.1.064340.3.579.2. 1973 Unknown [id number] 2.16.8 40.1.617551.3.579.2. 1973 Unknown [id number] 2.16.8 40.1.091614.3.579.2. 1973 Unknown [id number] 2.16. 840.1.833993.3.579.2. 1973 Unknown [id number] 2.16. 840.1.592247.3.579.2. 1973 Unknown [id number] 2.16. 840.1.991730.3.579.2. 1973 Unknown [id number] 2.16. [id number]. 1975 Unknown [id number] 2.16. 840.1.080569.3.579.2. 1975 Unknown [id number] 2.16. 840.1.013274.3.579.2. 1975 Unknown [id number] 2.16. 840.1.657892.3.579.2. 1975 Unknown [id number] 2.16. 840.1.140765.3.579.2. 1975 Unknown [id number] 2.16.8 40.1.250703.3.579.2. 1975 Unknown [id number] 2.16.8 40.1.627868.3.579.2. 1975 Unknown [id number] 2.16.8 40.1.345236.3.579.2. 1975 Unknown [id number] 2.16.8 40.1.311131.3.579.2. Self-pay [id number] Unknown [id number] 2.16.8 [id number] Unknown [id number] 2.16.8 40.1.817981.3.579.2.462 Social History Date Type Detail Facility Tobacco smoking status NHIS Unknown if ever smoked [facility] Work Phone: Start: 1975 Sex Assigned At Male W [facility] Start: 08-03-2021 Heavy tobacco smoker (finding) [facility] Sex Assigned At [facility] Start: 12-04-2021 End: 05-31-2025 Tobacco smoking status NHIS Smokes tobacco daily [facility] Work Phone: Start: 12-04-2021 Tobacco use and exposure Smokeless tobacco non-user [facility] Work Phone: Start: 1975 Sex Assigned At Not on file S [facility] Work Phone: Start: 11-24-2021 End: 12-04-2021 Exposure to SARS-CoV-2 (event) Not sure [facility] Start: 12-19-2024 End: 06-11-2025 Tobacco smoking status Light tobacco smoker (finding) [facility] Start: 01-06-2015 Sex Male (finding) [facility] Start: 05-29-2025 Not applicable (qualifier value) [facility] Sex Male [facility] Functional Status Date Assessment Result Facility 05-29-2025 [facility] 05-29-2025 Functional Status Ambulation in [place], Ambulation in Room [facility] 03-19-2024 Functional Status ID band on, Allergy Band on, Call device within reach, Bed in low position, Wheels locked, Upper/Half-Length side-rails up, personal items within reach, Bedside Cart Locked [facility] Mental Status Date Assessment Result Facility 05-29-2025 Mental Status Oriented x 4 [facility] 03-19-2024 Mental Status Oriented x 4 [facility] Clinical Notes 08-03-2021 to 06-20-2025 Note Date & Type Note Facility 06-20-2025 Nurse Progress note while talking to the patient prior to starting his IV, the patient disclosed that he as an infection in his jaw that is being treated with antibiotics and that he has an appointment with his dentist coming up to see how to proceed with treatment. after speaking with Guerrero in pharmacy, reclast not administered at this time. per order if major dental work is planned, hold and notify provider. Dr. Mcnulty's office contacted and made aware. patient was provided with the OPT infusion phone number and instructed to call when he is aware of the treatment plan to see if we can proceed with infusion Digitally Signed by Padmini Lopez RN on 06/20/2025 12:50 PM [facility] 05-31-2025 Progress note [facility] 05-29-2025 Hospital Discharge instructions Patient Education 05/29/2025 [...] temperature. Use toothpaste made for sensitive teeth. [place] gently up and down instead of sideways. Brushing sideways can wear away root surfaces if they are exposed. If your tooth is chipped or cracked, or if there is a large open cavity, put oil of cloves directly on the tooth to relieve pain. You can buy oil of cloves at drugstores. Some pharmacies carry an wvvu-sto-iymmxlm toothache kit. This contains a paste that you can put on the exposed tooth to make it less sensitive. Put a cold pack on your jaw over the sore area to help reduce pain. You may use rigu-qix-ovwnqnv medicine to ease pain, unless your doctor [...] healthcare provider Pus drains from the tooth [phone] [employer]. [address] [place] [address]. All rights reserved. This information is not intended as a substitute for professional medical care. Always follow your healthcare professional's instructions. Follow Up Care 05/29/2025 20:19:47 With:Take antibiotics as prescribed. You may use naproxen for pain. Do not take this with ibuprofen or other NSAIDs. Follow-up with your dentist, return if any worsening or concerning symptoms. Address:Unknown When:2-4 days [facility] 05-29-2025 Note Discharge Instructions Thank you for allowing [facility] to assist you with your healthcare needs. [...] temperature. Use toothpaste made for sensitive teeth. [place] gently up and down instead of sideways. Brushing sideways can wear away root surfaces if they are exposed. If your tooth is chipped or cracked, or if there is a large open cavity, put oil of cloves directly on the tooth to relieve pain. You can buy oil of cloves at [facility]. Some pharmacies carry an ecec-ieb-pqxpmgr toothache kit. This contains a paste that you can put on the exposed tooth to make it less sensitive. Put a cold pack on your jaw over the sore area to help reduce pain. You may use dobr-xac-xzoddob medicine to ease pain, unless your doctor [...] healthcare provider Pus drains from the tooth [phone] [employer]. [address] [place] [address]. All rights reserved. This information is not intended as a substitute for professional medical care. Always follow your healthcare professional's instructions. Additional Information VACCINATE! IT SAVES LIVES! Members of the community who have not yet received the COVID-19 vaccine and would like to receive it can visit one of [facility] vaccine clinics. There are many vaccine clinic locations within the [facility]. For locations and available times, please visit [email or web address] [email or web address] It is important to note that some COVID mobile vaccine clinics are held outdoors and may be canceled in rainy or stormy conditions. To learn more about pediatric vaccinations (ages 5-11), we invite you to visit the [facility] webpage. https://www.[facility].org/pag es/1226-Tmdsb-Isoxrzovrsp-Frequent re-Ajdjl-Zahfdhjah.html To learn more about the COVID-19 vaccine, we invite you to visit the CDC website for a list of frequently asked questions. https://www.cdc.gov/coronavirus/-ncov/vaccines/faq.html [facility] Patient Portal Access Instructions: Stay connected with your healthcare team and access your personal medical information anytime with the [facility] [employer] Patient Portal. If you would like a full copy of your medical records please contact the [facility] Medical Records Department Tuesday through Tuesday between 8a.m. and 4:30p.m. Please follow the directions below to access the portal: 1.Access the email account you [facility].2.Look for an invitation email from [facility].3.Open the email and access the invitation link: Accept Invitation to [facility]4.Fill in the required murphy to create your account. To access your account, visit [place]/TEVIZZt or scan the Girltank code above. Click the blue button labeled [...] you will allow to register on the [facility] Patient Portal for access to your information. You can also access the [facility] Patient Portal on the Brightpearl farooq. Simply click on Health Records under Health Data and then click on the [employer] logo. HOW TO SAFELY DISPOSE OF PRESCRIPTION [...] Call your local pharmacy or go to http://bit.Cyto Wave Technologies/3H6Zq9y to find one close to you.3.Make use of household items: Use cat litter or old coffee grounds to dispose medications if other options are not available. Mix your drugs with these household products, seal them in an airtight container and throw it into the garbage. Call [facility]: [phone] to be sure your drugs can be [...] aware that I should contact my doctor. Patient/Director Of Research Signature: Date/Time: Relationship to Patient: ___ Witness Name/Signature: Date/Time: [facility] 04-18-[address] Magistrate: SIGN, AUTHOR, PERFORM Event Display: [facility] Radiology Procedure Record Authored Date: [id number] [facility] Radiology Procedure Record Summary Primary Physician: ABENA DARBY MD Finalized Date/Time: 04/18/25 11:50:30 Pt. Name: PRIMITIVO MARIBELGAVIN Coates./Sex: 1975 Male Med Rec #: [id number] Physician: Financial #: [id number] Pt. Type: O Room/Bed: / Admit/Disch: 04/18/25 [...] CHECO Sosa 11/04/16 19:55:23 Case Attendance - [facility] IR Entry 1 Entry 2 Entry 3 Case Attendee ABENA DARBY MD, Brooke TECH Weidleman, Morgan B Role Performed Primary Surgeon Bakery Worker Conveyor Line Bakery Worker Conveyor Line Details Time In 04/18/25 11:21:00 04/18/25 11:10:00 04/18/25 11:10:00 Time Out 04/18/25 11:36:00 04/18/25 11:44:00 04/18/25 11:44:00 Procedure/Preference IR Thyroid Biopsy SN IR Thyroid Biopsy SN IR Thyroid Biopsy SN Card Last Modified By: Chelo Barton Kimberly Masters, Kimberly Industrial Court Magistrate 04/18/[address] Magistrate 04/18/[address] Magistrate 04/18/25 11:36:33 11:45:21 11:45:21 Entry 4 Case Attendee Susana Stephens Role Performed Other Details Time In 04/18/25 11:18:00 Time Out 04/18/25 11:45:00 Procedure/Preference IR Thyroid Biopsy SN Card Last Modified By: Chelo Barton 04/18/25 11:45:21 Radiology Procedures - AO IR Entry 1 Procedure/Preference IR Thyroid Biopsy SN Actual Procedure IR Thyroid Biopsy Card Primary Procedure Yes Primary Surgeon ABENA DARBY MD Anesthesia/Sedation Local Type Additional Procedure Times Start 04/18/25 11:22:00 Stop 04/18/25 11:36:00 Specialty Service SN Radiology Procedure EBL 0 mL Last Modified By: Chelo Barton 04/18/25 11:36:54 Culture and Specimens - AO IR Entry 1 Kind Specimen Type Lesion Date/Time 04/18/25 11:25:00 Description Cytology Disposition Cytology Lab Source Thyroid Gland Last Modified By: Chelo Barton 04/18/25 11:50:10 General Case Data - [facility] IR Entry 1 Radiology Case Information Room AO IR Case Level IR Level 2 Specialty SN Radiology Procedure ASA Class None Diagnosis Preop Diagnosis Thyroid nodule Postop Same As Preop Yes Postop Diagnosis Thyroid nodule Last Modified By: Chelo Barton 04/18/25 11:25:35 Immediate Post Procedure Note - AO IR Entry 1 Immediate Post Yes Findings left thyroid nodule Procedure Note biopsy done without displayed for complication Physician to review Closure Technique Closure Technique Primary Last Modified By: Chelo Barton 04/18/25 11:50:28 Immediate Post Procedure Note - [facility] IR Signed By: ABENA DARBY MD 04/18/25 11:47 Allergy Information - [facility] IR Entry 1 Allergies Reviewed? Yes Allergies Reviewed Patient With Last Modified By: Chelo Barton Industrial Court Magistrate 04/18/25 11:20:06 Procedure Case Times - AO IR Entry 1 Patient In Procedure Patient In OR 04/18/25 11:10:00 Patient Out of OR 04/18/25 11:45:00 Procedure Start/Stop Procedure Start Time 04/18/25 11:22:00 Procedure Stop Time 04/18/25 11:36:00 Last Modified By: Chelo Barton 04/18/25 11:45:33 Delays - [facility] IR Entry 1 Delay Reason: No Delay Duration 0 minute(s) Last Modified By: Chelo Barton 04/18/25 11:22:31 Radiology Protocols/Time Out - [facility] IR Entry 1 Preprocedure Clinician Verifies [...] Alcohol based prep dry Team Members ABENA DARBY MD, Present for Time Out Lauren Pan, Marty Howe Patel, Bharati Instrument Sterility Team Members ABENA DARBY MD, Verifying Sterility Lauren Pan Procedure IR Thyroid Biopsy SN Last Modified By: Chelo Barton 04/18/25 11:23:59 Patient Positioning - [facility] IR Entry 1 Procedure IR Thyroid Biopsy SN Body Position OP Supine Left Arm Position Resting at Side Right Arm Position Resting at Side Left Leg Position Extended Right Leg Position Extended Feet Uncrossed? Yes Pressure Points n/a Checked Positioning Devices Pillow Support Table Type Standard Date and Time 04/18/25 11:10:00 Last Modified By: Chelo Barton 04/18/25 11:29:09 Radiology Procedure Plan - [facility] IR Entry 1 Radiology - Nursing [...] symptoms of electrical injury. Outcomes Met? Yes Immigration Attorney Lauren Pan Completing Procedure Plan Last Modified By: Chelo Barton 04/18/25 11:25:06 Radiology Procedure Details - [facility] IR Entry 1 Radiology Sedation Case [...] Signatures Signed By: Chelo Barton 04/18/25 11:50 [facility] 04-18-2025 Note ORIGINAL PROCEDURE: ULTRASOUND GUIDED THYROID FNA Left lower lobe 04/18/2025 COMPARISON: 03/25/2025 HISTORY: ORDERING SYSTEM PROVIDED HISTORY: Reason for Exam: Thyroid Nodule TECHNIQUE: Informed consent was obtained after the procedure was discussed in detail including the risk, benefits, and alternatives. Trumbull protocol was followed. The neck was prepped and draped in sterile fashion and local anesthesia was achieved with lidocaine. 25 gauge needle was advanced under ultrasound guidance into a right thyroid nodule and fine-needle aspiration was performed. 4 passes were performed and the patient tolerated the procedure well. IMPRESSION: Successful ultrasound-guided fine-needle aspiration of the left lower thyroid nodule. Interpreted by: Abena Darby MD Preliminary Report By: Abena Darby MD Electronically signed By Abena Darby MD Dictated Date: 04/18/2025 12:37:59 PM Prelim Date: 04/18/2025 12:39:04 PM Sign Date: 04/18/2025 12:39:04 PM Ordering Provider: AYUSH MCNULTY [facility] 04-18-2025 Note AO Radiology Procedure Record Summary Primary Physician: ABENA DARBY MD Finalized Date/Time: 04/18/25 11:50:30 Pt. Name: MARIBEL LANGFORD Fred Jean/Sex: 1975 Male Med Rec #: [id number] Physician: Financial #: [id number] Pt. Type: O Room/Bed: / Admit/Disch: 04/18/25 [...] CHECO Sosa 11/04/16 19:55:23 Case Attendance - [facility] IR Entry 1 Entry 2 Entry 3 Case Attendee ABENA DARBY MD [facility] Marty Lazcano Role Performed Primary Surgeon Bakery Worker Conveyor Line Bakery Worker Conveyor Line Details Time In 04/18/25 11:21:00 04/18/25 11:10:00 04/18/25 11:10:00 Time Out 04/18/25 11:36:00 04/18/25 11:44:00 04/18/25 11:44:00 Procedure/Preference IR Thyroid Biopsy SN IR Thyroid Biopsy SN IR Thyroid Biopsy SN Card Last Modified By: Chelo Barton Kimberly Masters, Kimberly Industrial Court Magistrate 04/18/[address] Magistrate 04/18/[address] Magistrate 04/18/25 11:36:33 11:45:21 11:45:21 Entry 4 Case Attendee Susana Stephens Role Performed Other Details Time In 04/18/25 11:18:00 Time Out 04/18/25 11:45:00 Procedure/Preference IR Thyroid Biopsy SN Card Last Modified By: Chelo Barton Industrial Court Magistrate 04/18/25 11:45:21 Radiology Procedures - [facility] IR Entry 1 Procedure/Preference IR Thyroid Biopsy SN Actual Procedure IR Thyroid Biopsy Card Primary Procedure Yes Primary Surgeon ABENA DARBY MD Anesthesia/Sedation Local Type Additional Procedure Times Start 04/18/25 11:22:00 Stop 04/18/25 11:36:00 Specialty Service SN Radiology Procedure EBL 0 mL Last Modified By: Chelo Barton 04/18/25 11:36:54 Culture and Specimens - AO IR Entry 1 Kind Specimen Type Lesion Date/Time 04/18/25 11:25:00 Description Cytology Disposition Cytology Lab Source Thyroid Gland Last Modified By: Chelo Barton 04/18/25 11:50:10 General Case Data - [facility] IR Entry 1 Radiology Case Information Room AO IR Case Level IR Level 2 Specialty SN Radiology Procedure ASA Class None Diagnosis Preop Diagnosis Thyroid nodule Postop Same As Preop Yes Postop Diagnosis Thyroid nodule Last Modified By: Chelo Barton 04/18/25 11:25:35 Immediate Post Procedure Note - AO IR Entry 1 Immediate Post Yes Findings left thyroid nodule Procedure Note biopsy done without displayed for complication Physician to review Closure Technique Closure Technique Primary Last Modified By: Chelo Barton 04/18/25 11:50:28 Immediate Post Procedure Note - [facility] IR Signed By: ABENA DARBY MD 04/18/25 11:47 Allergy Information - [facility] IR Entry 1 Allergies Reviewed? Yes Allergies Reviewed Patient With Last Modified By: Chelo Barton Industrial Court Magistrate 04/18/25 11:20:06 Procedure Case Times - AO IR Entry 1 Patient In Procedure Patient In OR 04/18/25 11:10:00 Patient Out of OR 04/18/25 11:45:00 Procedure Start/Stop Procedure Start Time 04/18/25 11:22:00 Procedure Stop Time 04/18/25 11:36:00 Last Modified By: Chelo Barton 04/18/25 11:45:33 Delays - [facility] IR Entry 1 Delay Reason: No Delay Duration 0 minute(s) Last Modified By: Chelo Barton 04/18/25 11:22:31 Radiology Protocols/Time Out - [facility] IR Entry 1 Preprocedure Clinician Verifies [...] Alcohol based prep dry Team Members ABENA DARBY MD, Present for Time Out Lauren Pan, Marty Howe Patel, Bharati Instrument Sterility Team Members ABENA DARBY MD, Verifying Sterility Lauren Pan Procedure IR [...] Barton 04/18/25 11:29:09 Radiology Procedure Plan - [facility] IR Entry 1 Radiology - Nursing [...] symptoms of electrical injury. Outcomes Met? Yes Immigration Attorney Lauren Pan Completing Procedure Plan Last Modified By: Chelo Barton 04/18/25 11:25:06 Radiology Procedure Details - [facility] IR Entry 1 Radiology Sedation Case [...] Signatures Signed By: Chelo Barton 04/18/25 11:50 [facility] 04-18-2025 Note Exam Date Time Procedure Performing Provider Status 04/18/25 11:46 AM IR Thyroid Biopsy ABENA DARBY MD; Auth (Verified) [id number] ORIGINAL PROCEDURE: ULTRASOUND GUIDED THYROID FNA Left lower lobe 04/18/2025 COMPARISON: 03/25/2025 HISTORY: ORDERING SYSTEM PROVIDED HISTORY: Reason for Exam: Thyroid Nodule TECHNIQUE: Informed consent was obtained after the procedure was discussed in detail including the risk, benefits, and alternatives. Trumbull protocol was followed. The neck was prepped and draped in sterile fashion and local anesthesia was achieved with lidocaine. 25 gauge needle was advanced under ultrasound guidance into a right thyroid nodule and fine-needle aspiration was performed. 4 passes were performed and the patient tolerated the procedure well. IMPRESSION: Successful ultrasound-guided fine-needle aspiration of the left lower thyroid nodule. Interpreted by: Abena Darby MD Preliminary Report By: Abena Darby MD Electronically signed By Abena Darby MD Dictated Date: 04/18/2025 12:37:59 PM Prelim Date: 04/18/2025 12:39:04 PM Sign Date: 04/18/2025 12:39:04 PM Ordering Provider: [facility]08-08-2025 Note* Exam Date Time Procedure Performing Provider Status 03/29/25 11:12 AM MRI Spine Cervical w/o Contrast JAYA DANIEL MD; Auth (Verified) [id number] ORIGINAL EXAMINATION: MRI OF THE CERVICAL SPINE [...] Sign Date: 03/29/2025 11:30:43 AM Ordering Provider: [facility] Yogesh [id number] Note* Exam Date Time Procedure Performing Provider Status 03/25/25 10:25 AM US Thyroid LESLY VERDIN MD; Auth (V erified) [id number] ORIGINAL EXAMINATION: Ultrasound Thyroid 03/25/2025 10:29 am [...] Sign Date: 03/25/2025 11:16:56 AM Ordering Provider: [facility]08-04-2025 Note* Exam Date Time Procedure Performing Provider Status 03/25/25 10:22 AM BD Bone Density DEXA Axial Skeleton SHALINI STEPHENS MD; Auth (Verified) [id number] ORIGINAL EXAMINATION: BONE DENSITOMETRY03/25/2025 10:22 am TECHNIQUE: [...] risk by FRAX. IMPRESSION: Osteoporosis. Interpreted by: Shalini Stephens MD Preliminary Report By: Shalini Stephens MD Electronically signed By Shalini Stephens MD Dictated Date: 03/25/2025 11:52:16 PM Prelim Date: 03/25/2025 11:53:48 PM Sign Date: 03/25/2025 11:53:48 PM Ordering Provider: AYUSH MCNULTY [facility]10-11-2024 Evaluation + Plan note Future Scheduled Tests Radiology* NM Parathyroid Study 06/01/24 [facility] 07-30-2024 Hospital Discharge instructions Patient Education [...] is gone, even if you feel better. [phone] [employer]. [address] [place] [address]. All rights reserved. This information is not intended as a substitute for professional medical care. Always follow yourhealthcare professional's instructions. Follow Up Care 03/19/2024 22:51:16 With:RAJI WALLIS Address: [address] [place] [phone] When:2-4 days [facility] 07-29-2024 Note Discharge Instructions Thank you for allowing [facility] to assist you with your healthcare needs. [...] Up with RAJI WALLIS When:Within 2-4 days Where:[address] [place] [address] [phone] Allergies Vicodin aspirin erythromycin penicillin Medications Please [...] is gone, even if you feel better. [phone] [employer]. [address] [place] [address], [place] [address]. All rights reserved. This information is not intended as a substitute for professional medical care. Always follow yourhealthcare professional's instructions. Additional Information VACCINATE! IT SAVES LIVES! Members of the community who have not yet received the COVID-19 vaccine and would like to receive it can visit one of [facility] vaccine clinics. There are many vaccine clinic locations within the [facility]. For locations and available times, please visit [email or web address] It is important to note that some COVID mobile vaccine clinics are held outdoors and may be canceled in rainy or stormy conditions. To learn more about pediatric vaccinations (ages 5-11), we invite you to visit the [facility] webpage. https://www.[facility].org/pages/2783-Rmcfb-Facdnrgfasw-Cstukfpgsq-Gmezb-Kwj stions.htmlTo learn more about the COVID-19 vaccine, we invite you to visit the CDC website for a list of frequently asked questions. https://www.cdc.gov/coronavirus/2019-ncov/vaccines/faq.html [facility] Patient Portal Access Instructions: Stay connected with your healthcare team and access your personal medical information anytime with the [facility] Patient Portal. If you would like a full copy of your medical records please contact the [facility] Medical Records Department Tuesday through Tuesday between 8a.m. and 4:30p.m. Please follow the directions below to access the portal: 1.Access the email account you provided upon registration to the hospital.2.Look for an invitation email from [facility].3.Open the email and access the invitation link: Accept Invitation to [facility]4.Fill in the required murphy to create your account. Sign into [email or web address].[place] with your username and password that you [...] you will allow to register on the [facility] [employer] Patient Portal for access to your information. You can also access the [facility] Patient Portal on the Brightpearl farooq. Simply click on Health Records under [employer] and then click on the [employer] logo. HOW TO SAFELY DISPOSE OF PRESCRIPTION [...] Call your local pharmacy or go to http://The Mad Video.[employer]/8R2Vu9s to find one close to you.3.Make use of household items: Use cat litter or old coffee grounds to dispose medications if other options arenot available. Mix your drugs with these household products, seal them in an airtight container andthrow it into the garbage. Call [facility]: [phone] to be sure your drugs can be [...] been reviewed and explained to me and IPRIMITIVO RONALD J understand my current condition and have read and understand these discharge instructions. I have received a written copy of the plan/instructions. If I have questions, I am aware that I should contact my doctor. Patient/Director Of Research Signature: Date/Time: Relationship to Patient: Witness Name/Signature: Date/Time: [facility]03-21-2022 Evaluation + Plan note Future Scheduled Tests Radiology* XR Foot Minimum 3 Views Right 11/09/21 * XR Ankle Minimum 3 Views Right 11/09/21 [facility] 12-13-2021 Hospital Discharge instructions Patient Education [...] thin towel or cloth. You may use phec-jry-ukktdof pain medicine (NSAIDS or nonsteroidal anti- inflammatory [...] or is irritated You re-injure your ankle [id number] [employer]. [address] [place] [address], [place] [address]. All rights reserved. This information is not intended as a substitute for professional medical care. Always follow yourhealthcare professional's instructions. Follow Up Care 08/03/2021 11:05:50 With:Go to emergency room if symptoms worsen Address:Unknown When:2-4 days [facility] Evaluation + Plan note No data available for this section [facility] Evaluation + Plan note Future Appointments Appointment Date:06/01/2024 03:00:00 PM Scheduled Provider:RAJI WALLIS Location:[facility] Appointment Type:PC OV [facility] Evaluation + Plan note Future Appointments Appointment Date:12/25/2024 01:30:00 PM Scheduled Provider: Location:TY Appointment Type:PT Outpatient Evaluation Appointment Date:01/09/2025 10:00:00 AM Scheduled Provider:RAJI WALLIS Location:[facility] Appointment Type:PC OV Appointment Date:03/19/2025 03:15:00 PM Scheduled Provider:AYUSH MCNULTY MD Location:[facility] Appointment Type:ENDO CERTIFIED PEST CONTROL TECHNICIAN [facility] Evaluation + Plan note Future Appointments Appointment Date:03/14/2025 10:00:00 AM Scheduled Provider:EARL COBOS DO Location:[facility] Appointment Type:OSM OV Review Testing Appointment Date:03/19/2025 03:15:00 PM Scheduled Provider:AYUSH MCNULTY MD Location:[facility] Appointment Type:ENDO CERTIFIED PEST CONTROL TECHNICIAN Appointment Date:03/20/2025 08:00:00 AM Scheduled Provider:RAJI WALLIS Location:[facility] Appointment Type:PC OV Appointment Date:04/10/2025 11:00:00 AM Scheduled Provider:RAJI WALLIS Location:[facility] Appointment Type:PC OV [facility] Evaluation + Plan note Future Appointments Appointment Date:03/25/2025 10:00:00 AM Scheduled Provider: Location:[facility] Appointment Type:BD Bone Density DEXA Axial Skeleton Appointment Date:03/25/2025 11:00:00 AM Scheduled Provider: Location:[facility] Appointment Type:US Thyroid Appointment Date:03/29/2025 11:00:00 AM Scheduled Provider: Location:[facility] Appointment Type:MRI Spine Cervical w/o Contrast Appointment Date:04/04/2025 10:00:00 AM Scheduled Provider:EARL COBOS DO Location:[facility] Appointment Type:OSM OV Review Testing Appointment Date:04/10/2025 11:00:00 AM Scheduled Provider:RAJI WALLIS Location:[facility] Appointment Type:PC OV Appointment Date:04/16/2025 10:15:00 AM Scheduled Provider:AYUSH MCNULTY MD Location:[facility] Appointment Type:ENDO OV Diagnostic Tests Pending * Calcitriol(1,25 di-OH Vit D) 03/20/25 Future Scheduled Tests Radiology* BD Bone Density DEXA Axial Skeleton Adult (21 yrs or older) 03/25/25 * MRI Spine Cervical w/o Contrast 03/29/25 * US Thyroid 03/25/25 [facility] Evaluation + Plan note Future Appointments Appointment Date:03/25/2025 10:00:00 AM Scheduled Provider: Location:[facility] Appointment Type:BD Bone Density DEXA Axial Skeleton Appointment Date:03/25/2025 11:00:00 AM Scheduled Provider: Location:[facility] Appointment Type:US Thyroid Appointment Date:03/29/2025 11:00:00 AM Scheduled Provider: Location:[facility] Appointment Type:MRI Spine Cervical w/o Contrast Appointment Date:04/04/2025 10:00:00 AM Scheduled Provider:EARL COBOS DO Location:[facility] Appointment Type:OSM OV Review Testing Appointment Date:04/10/2025 11:00:00 AM Scheduled Provider:RAJI WALLIS Location:[facility] Appointment Type:PC OV Appointment Date:04/16/2025 10:15:00 AM Scheduled Provider:AYUSH MCNULTY MD Location:[facility] Appointment Type:ENDO OV Future Scheduled Tests Radiology* BD Bone Density DEXA Axial Skeleton Adult (21 yrs or older) 03/25/25 * MRI Spine Cervical w/o Contrast 03/29/25 * US Thyroid 03/25/25 [facility] Evaluation + Plan note Future Appointments Appointment Date:03/29/2025 11:00:00 AM Scheduled Provider: Location:[facility] Appointment Type:MRI Spine Cervical w/o Contrast Appointment Date:04/04/2025 10:00:00 AM Scheduled Provider:EARL COBOS DO Location:[facility] Appointment Type:OSM OV Review Testing Appointment Date:04/10/2025 11:00:00 AM Scheduled Provider:RAJI WALLIS Location:[facility] Appointment Type:PC OV Appointment Date:04/16/2025 10:15:00 AM Scheduled Provider:AYUSH MCNULTY MD Location:[facility] Appointment Type:ENDO OV Future Scheduled Tests Radiology* MRI Spine Cervical w/o Contrast 03/29/25 [facility] Evaluation + Plan note Future Appointments Appointment Date:04/04/2025 10:00:00 AM Scheduled Provider:EARL COBOS DO Location:[facility] Appointment Type:OSM OV Review Testing Appointment Date:04/10/2025 11:00:00 AM Scheduled Provider:RAJI WALLIS Location:[facility] Appointment Type:PC OV Appointment Date:04/16/2025 10:15:00 AM Scheduled Provider:AYUSH MCNULTY MD Location:[facility] Appointment Type:ENDO OV Appointment Date:04/18/2025 11:00:00 AM Scheduled Provider: Location:[facility] Appointment Type:IR Thyroid Biopsy Future Scheduled Tests Radiology* IR Thyroid Biopsy 04/18/25 [facility] Evaluation + Plan note Future Appointments Appointment Date:05/15/2025 09:00:00 AM Scheduled Provider:AYUSH MCNULTY MD Location:[facility] Appointment Type:ENDO OV Appointment Date:10/09/2025 11:00:00 AM Scheduled Provider:RAJI WALLIS Location:[facility] Appointment Type:PC Wellness Annual [facility] Evaluation + Plan note Future Appointments Appointment Date:06/05/2025 12:00:00 PM Scheduled Provider: Location:[facility] Appointment Type:INF/OSP Infusion: Reclast Appointment Date:10/09/2025 11:00:00 AM Scheduled Provider:RAJI WALLIS Location:[facility] Appointment Type:PC Wellness Annual Future Scheduled Tests Laboratory* N-Telopeptide, Urine 06/26/25 * Calcium Level Ionized 06/26/25 * Magnesium Level 06/26/25 * Phosphorus Level 06/26/25 * Thyroid Stimulating Hormone 06/26/25 * Free T4 06/26/25 * Calcium Random Urine 06/26/25 * Creatinine Random Urine 06/26/25 * PTH, Intact 06/26/25 * Vitamin D Level 06/26/25 * Complete Metabolic Panel 06/26/25 [facility] Evaluation + Plan note Future Appointments Appointment Date:06/20/2025 12:30:00 PM Scheduled Provider: Location:[facility] Appointment Type:INF/OSP Infusion: Reclast Appointment Date:07/04/2025 11:00:00 AM Scheduled Provider:AYUSH MCNULTY MD Location:[facility] Appointment Type:ENDO OV Appointment Date:10/09/2025 11:00:00 AM Scheduled Provider:RAJI WALLIS Location:[facility] Appointment Type: Wellness Annual Diagnostic Tests Pending * N-Telopeptide, Urine 06/14/25 [facility] Evaluation + Plan note Future Appointments Appointment Date:07/04/2025 11:00:00 AM Scheduled Provider:AYUSH MCNULTY MD Location:[facility] Appointment Type:ENDO OV Appointment Date:10/09/2025 11:00:00 AM Scheduled Provider:RAJI WALLIS Location:[facility] Appointment Type: Wellness Annual [facility] Evaluation noteNo assessment information available [facility] Work Phone: Evaluation note* Diagnosis Right foot pain Pain in limb documented in this encounter [employer] Work Phone: Evaluation note* Diagnosis Closed displaced fracture of third metatarsal bone of right foot, initial encounter documented in this encounter [employer] Work Phone: Evaluation note* Diagnosis Onset Date Resolution Status Admit Date Difficulty swallowing acute Oct tim2024 9:31am Osteoporosis acute May 9:31am Primary hyperparathyroidism acute May 31, 2025 9:31am Thyroid nodule acute May 312024 9:31am [facility] Work Phone: Hospital Discharge instructions No data available for this section [facility] Progress note No data available for this section [facility] Proaqxez note Author Abena Guzman [facility] Services Note Date/Time May 31, 2025 1 0:38am [facility] [address] [place] [address] OFFICE VISIT Date of Service: 05/31/25 MR#: [id number] Acct: [id number] Name: MARIBEL LANGFORD Rep #: [id number] : 1975 Provider: Dr. Ramses Guzman MD Age/Sex: 50/M Location: [facility] Status: Signed Intake Vital Signs 05/31/25 09:50 [...] Family History (Updated 05/31/25 @ 09:47 by Leeanen John) Mother Cancer Thyroid disorder Hypertension Father [...] swallowing R13.10 Time Spent (min) 45 05/31/25 1829 <Electronically signed by Abena Guzman MD> Date _ Abena Guzman MD Cosigner Signature: Date (if applicable) CC: CERTIFIED PEST CONTROL TECHNICIANSusannah Wallis ~ [facility] Work Phone: Reason for referral (narrative)No reason for referral information availableBlMer[facility] Work Phone: Chief Complaint and Reason for [...] may be documented in an alternate section No data available for this section (unrecognized sect ion and content) No Status Records FoundNo Status Records FoundNo Status Records FoundNo Status Records FoundNo Status Records Found INFORMATION SOURCE (unrecogn ized section and content) DATE CREATED AUTHOR 03/11/2022 [facility] DATE CREATED AUTHOR AUTHOR'S ORGANIZ ATION 03/25/2024 [facility] ([place]) DATE CREATED AUTHOR AUTHOR'S ORGANIZ ATION 04/05/2025 [facility] DATE CREATED AUTHOR AUTHOR'S ORGANIZ ATION 06/23/2025 [facility] DATE CREATED AUTHOR AUTHOR'S ORGANIZ ATION 06/27/2025 [facility] Patient Care team informatio n (unrecognized section and content) Team Status: Active Member Role/Relationship Status Dates Raji Wallis CERTIFIED PEST CONTROL TECHNICIAN, CERTIFIED PEST CONTROL TECHNICIAN-C Primary care physician Active Team Status: Inactive Member Role/Relationship Status Dates Raji Wallis CERTIFIED PEST CONTROL TECHNICIAN, CERTIFIED PEST CONTROL TECHNICIAN-C Primary care physician Active Start: May 31, 2025 End: May 31, 2025 Raji Wallis CERTIFIED PEST CONTROL TECHNICIAN, CERTIFIED PEST CONTROL TECHNICIAN-C Referring Provider Active S tart: May 31, 2025 End: May 31, 2025 Dr. Abena Guzman MD Attending physician Active Start: May 31, 2025 End: May 31, 2025 Care Team Personnel Name: RAJI WALLIS APRN-PLATE GRAINER APPRENTICE Position: P4 Advanced Heat Pump Installer Member Role: Primary Care Physician Address: Address: [address] [place] [id number] Care Team Related Persons Name: VIVEK LANGFORD Name: HAIM LANGFORD Address: [facility] Address: Home [address] [place], [place] [id number] [place] Address: Temporary [address] [place], [place] [id number] FOR RECORDS PERTAINING TO PATIENTS WHO ARE [...] BE BASED ON THE PRIMARY CLINICAL RECORDS. [employer] [facility]. provides no warranty or guarantee of the accuracy or completeness of information in this document.
[2025-08-01] MEDS: Lactated Ringers 1,000 ML 15 ML IV (09:04)
--- NOTE | 2025-08-01 09:30 | EGD_PTH ---
PATIENT: MARIBEL LANGFORD LOC: EN U#:[id number] AGE/SX: 50/M ROOM: RE08/01/[address]: Dr. Ayad Guzman MD : 1975 BED: DIS: 08/01/2025 SPEC #: [id number] RECD: 08/01/25 11:50 STATUS: JONY REHannah #: [id number] NANCY: 08/01/25 09:[address]: Ayad Guzman DEPT: SURGICAL PATHOLOGY RECD BY: Marty Morel ENTERED: 08/01/25 13:21 SP TYPE: EGD BIOPSY OTHR DR: Adriel Pandey, DIVYA Tissues: A - Duodenum, NOS B - Duodenum, NOS C - Gastric mucous membrane D - Esophagus, NOS Procedures: Immunohistochemical Stains Surgery Specimen Level IV HEADER OPERATION: EGD, biopsy, hemostasis, polypectomy PRE-OP DIAGNOSIS: Primary hyperparathyroidism, thyroid nodule TISSUE SUBMITTED: A- Duodenal mucosa biopsy, B- Duodenal polyps biopsy, C- Antral biopsy, D- Distal esophagus biopsy MICROSCOPIC DIAGNOSIS A. Small intestine, duodenum, biopsy: - Mild villous blunting, negative for increased intraepithelial lymphocytes. - Gastric metaplasia. B. Small intestine, duodenum, polyps, biopsy: - Polypoid fragments of duodenal mucosa with Surekha gland hyperplasia - see note. Note: The tissue is distorted with cautery artifact, limiting the assessment. Dysplasia cannot be evaluated. C. Stomach, antrum, biopsy: - Antral and oxyntic mucosa with mild active chronic inflammation and features of reactive gastropathy. - IHC negative for H. pylori organisms. D. Esophagus, distal, biopsy: - Squamous mucosa with reactive changes and rare eosinophil. - Scant columnar mucosa noted, negative for goblet cell metaplasia. MICROSCOPIC DESCRIPTION Slides are reviewed. All matched controls reacted appropriately. These tests were developed and their performance characteristics determined by [facility]. They may not have been cleared or approved by the U.S. Food and Drug Administration. The FDA has determined that such clearance or approval is not necessary. The above immunohistochemical markers and/or special?stains have been reviewed by the Pathologist.. GROSS DESCRIPTION A. Received in fixative is one container labeled with the patient's name and designated Duodenal mucosa biopsy. The specimen consists of one irregular fragment of kulkarni tissue that measures 0.6 cm. The specimen is totally submitted in one cassette. B. Received in fixative is one container labeled with the patient's name and designated Duodenal polyps biopsy. The specimen consists of multiple irregular fragments of kulkarni tissue that in aggregate measure 0.8 x 0.5 x 0.1 cm. The specimen is totally submitted in one cassette. C. Received in fixative is one container labeled with the patient's name and designated Antral biopsy. The specimen consists of two irregular fragments of kulkarni tissue, each measuring 0.2 cm. The specimen is totally submitted in one cassette. D. Received in fixative is one container labeled with the patient's name and designated Distal esophagus biopsy. The specimen consists of multiple irregular fragments of kulkarni tissue that in aggregate measure 0.6 x 0.6 x 0.1 cm. The specimen is totally submitted in one cassette. [place] 08/01/2025 CPT:[id number]
--- NOTE | 2025-08-01 09:54 | PCM.PRE.AN2 ---
ASA Classification* ASA Classification ASA Classification: 3 Assessment & Plan Anesthesia* Anesthesia Assessment Anesthesia Assessment: Discussed sedation and/or anesthesia options, risks, benefits, and alternatives with patient/parents/legal guardian/POA. Questions invited. The patient/parents/legal guardian/POA seems to understand and agrees to proceed with anesthesia plan. Reviewed the physical assessment, medical history, allergy history and patient home medications list prior to surgery/procedure/anesthetic and documented any changes. Performed airway and anesthesia risk assessments. Anesthesia Type Anesthesia Type: General History Source History Obtained from:: Patient and Chart Anesthesia Focused Assessment* Temperature: 98.1 F Pulse Rate: 79 Blood Pressure: 138/92 Respiratory Rate: 18 Pulse Ox: 100 Oxygen Delivery Method: Room Air Airway Assessment Mouth opens: >3 cm Mallampati Score: III Teeth Condition: Missing (Patient has several missing teeth. Rest the teeth are tight.) Neck Range of motion (ROM): Limited ROM (Severe Restriction secondary to cervical fractures. Keep patient's head in a neutral position.) Labs Anesthesia Preop lab: CBC CHEMISTRY COAG Pre-Assessment Diagnosis/Proposed Procedure Planned Operative Procedure(s): EGD Anesthesia History Anesthesia History - photogrammetric engineer: Anesthesia History - photogrammetric engineer Hx Hospitalization No 07/31/25 13:26 Any Problems With Anesthesia No 07/31/25 13:26 Cholinesterase deficiency No 07/31/25 13:26 You/Your Family Experience No 07/31/25 13:26 fever (hyperthermia) with Relationship Recent Exposure to Contagious No 08/01/25 08:56 Disease Does patient have nerve No 07/31/25 13:26 stimulator Patient instructed to have device shut off --Does patient have Pacemaker No 08/01/25 08:56 or ICD? When Was Last Pacemaker Check QUESTION #4 FULL TEXT: You/Your Family Experience fever (hyperthermia) with Anesthesia Last Oral Intake Last Oral intake: Last Oral Intake NPO since 00:00 08/01/25 08:56 Meds taken in AM with sips of No 08/01/25 08:56 water? Meds patient instructed to take am of surgery PONV PONV - photogrammetric engineer: PONV - photogrammetric engineer Female No 07/31/25 13:26 HX of Motion Sickness No 07/31/25 13:26 HX of N/V After Surgery No 07/31/25 13:26 Non-Smoker No 07/31/25 13:26 Duration of Surgery greater No 07/31/25 13:26 than 60 minutes Number of Risk Factors PONV Score Height & Weight Height & Weight: Anesthesia: Height & Weight Height 5 ft 9 in 08/01/25 08:56 Weight: 68 kg 08/01/25 08:56 Body Mass Index (BMI) 22.1 08/01/25 08:56 Respiratory Assessment Respiratory Assessment - photogrammetric engineer: Respiratory Tract Infection Hx - photogrammetric engineer Hx Respiratory Tract Infection No 07/31/25 13:26 STOP Sleep Apnea STOP Sleep Apnea - photogrammetric engineer: STOP Sleep Apnea - photogrammetric engineer Hx Hypertension No 07/31/25 13:26 Hx Sleep Apnea No 07/31/25 13:26 CPAP BIPAP Do you snore loudly (louder No 07/31/25 13:26 than talking or can be heard Do you often feel tired/ No 07/31/25 13:26 fatigued/ sleepy during daytime? Has anyone observed you stop No 07/31/25 13:26 breathing during sleep? STOP Results Negative 07/31/25 13:26 QUESTION #5 FULL TEXT : Do you snore loudly (louder than talking or can be heard through closed doors)? Tobacco Use History Tobacco Use History - photogrammetric engineer: Tobacco Use History - photogrammetric engineer Tobacco Use Smoking Status Current every day smoker 07/31/25 13:26 Hx Tobacco Use Yes 07/31/25 13:26 Years Smoking Packs Smoked per Day 0.5 07/31/25 13:26 Smoking Cessation Date was within the last 15 years Hx Smoking Cessation Date Hx Smoking Cessation Counseling Any additional information?: Yes Smoking Status: Current every day smoker (Patient smoked today.) Hematologic Medial History Hematologic Hx - photogrammetric engineer: Hematologic Medical Hx - forestry fire aide Hx of Blood Transfusion No 07/31/25 13:26 Hx of Transfusion in last 3 No 07/31/25 13:26 Months Date of Last Transfusion (if within last 3 months) Ever experience any problems No 07/31/25 13:26 with transfusion(s)? Specify any problems Hx of Preganancy in last 3 N/A 07/31/25 13:26 Months Nurse Filling Out Transfusion NBUCHER 07/31/25 13:26 & Questions: Date: 07/31/25 07/31/25 13:26 Time: 13:27 07/31/25 13:26 Patient unable to answer at this time (ie. confused, unrespo /Reproduction History /Reproductive History - photogrammetric engineer: /Reproductive Hx- photogrammetric engineer Hx Now No 07/31/25 13:26 Gestational Age (in weeks): EDC: Hx Hx Para Hx Section SAB No 07/31/25 13:26 Does the father of the baby or his family experience fever w Father of the baby Malignant Hypertension history comment Active Medications Active Medications: Current Medications Generic Name Dose Route Start Last Admin Trade Name Freq PRN Reason Stop Dose Admin Lactated Ringer's 1,000 mls @ 15 mls/hr 08/01/25 08:45 08/01/25 09:04 IV 15 mls/hr .Q48H MAGUE Administration PFSH Medical History Arthritis Rheumatoid arthritis Smoker Sleep apnea Asthma Home Medications ?Medication ?Instructions ?Recorded ?Last Taken ?Type amitriptyline 25 mg tablet 25 mg PO QDAY 05/31/25 Unknown History cholecalciferol (vitamin D3) 25 25 mcg PO QDAY 05/31/25 Unknown History mcg (1,000 unit) capsule tizanidine 4 mg capsule 4 mg PO QHS PRN muscle spasticity 05/31/25 Unknown History Allergy/AdvReac Type Severity Reaction Status Date / Time Penicillins Allergy Severe Swelling Verified 08/01/25 10:01 aspirin Allergy Intermediate Other Verified 08/01/25 08:55 erythromycin base Allergy Intermediate Swelling Verified 08/01/25 10:01 clindamycin Allergy Mild Swelling Verified 08/01/25 08:55 naproxen Allergy Mild Swelling Verified 08/01/25 08:55 Family History Mother Cancer Thyroid disorder Hypertension Father Cancer no surgical history Social History Smoking Status: Current every day smoker tobacco type: cigarettes quit status: not considering quitting alcohol intake: current alcohol intake frequency: a few times a month Review of Systems (Anesthesia) ROS Narrative System reviewed and no additional complaints, except as documented. Physical Exam Resp clear to auscultation bilaterally
--- NOTE | 2025-08-01 10:16 | PCM.HP.BLA ---
History and Physical Date of Admission: 08/01/25 Date of Service: 07/12/25 MR#: [id number] Acct: [id number] Name: MARIBEL LANGFORD Rep #: [id number] : 1975 Provider: Dr. Ayad Guzman MD Age/Sex: 50/M Location: [facility] Status: Signed Intake Vital Signs 05/31/2509:50 07/12/2509:47 Height 5 ft 9 in 5 ft 9 in Weight: 151 lb 149 lb BMI 22.3 21.9 BP 137/91 H 137/95 H Blood Pressure Location Rt brachial Rt brachial Position Sitting Sitting Respiration 17 16 Pulse 115 H Pulse Source Monitor Pulse Oximetry (%) 98 Oxygen Delivery Method room air Intake Visit Reasons: DISCUSS CT RESULTS Chief Complaint: discuss CT results Office Spec Required: No Is patient in pain?: Yes (left jaw) Allergies aspirin Allergy (Intermediate, Verified 05/31/25 09:53) Other clindamycin Allergy (Mild, Verified 07/12/25 09:48) Swelling naproxen Allergy (Mild, Verified 07/12/25 09:48) Swelling Medications ?Medication ?Instructions ?Recorded ?Confirmed ?Type amitriptyline 25 mg tablet 25 mg PO QDAY 05/31/25 07/12/25 History cholecalciferol (vitamin D3) 25 25 mcg PO QDAY 05/31/25 07/12/25 History mcg (1,000 unit) capsule tizanidine 4 mg capsule 4 mg PO QHS PRN 05/31/25 07/12/25 History Have you fallen in the past year?: No PFSH Medical History (Updated 07/12/25 @ 17:[address] Ayad Guzman MD) Sleep apnea Asthma Family History (Updated 05/31/25 @ 09:47 by Leeanne John) Mother Cancer Thyroid disorder Hypertension Father Cancer Social History (Updated 05/31/25 @ 09:47 by Leeanne John) Smoking Status: Current every day smoker quit status: not considering quitting alcohol intake: current alcohol intake frequency: a few times a month HPI HPI HPI: Patient is a 50-year-old male with hyperparathyroidism and osteoporosis as well as benign thyroid nodularity. He last seen on 05/31/2025 in initial consultation. In the interim he confirms he has had 2 teeth extracted (2 weeks ago today) but shares that he has ongoing pain and swelling of his jaw. He denies any scheduled follow-up but states that he will need to make follow-up as he feels the same as prior to his extraction. He did complete requested CT imaging of his neck and met with his punch out crew member who updated his laboratories. He relays a question from her as to my anticipated timing for operating and his appropriateness for receiving an infusion. Outside of the above history Holland reports that he has had significant reflux usually multiple times daily. He denies any related heartburn. He notes that he actively avoids tomato sauce. Below is recapitulated from patient's prior visit for ease of review: The patient is a 50-year-old male with hyperparathyroidism and osteoporosis presenting to discuss thyroid and parathyroid issues. The patient reports a several-year history of fatigue and malaise that prompted extensive testing before hypercalcemia was identified. He recalls that the workup intensified last year, and he has been followed by endocrinology (Dr. Michaud). He was told that his parathyroid condition is causing calcium to be pulled from his bones, leading to osteoporosis and fractures. He reports a history of multiple fractures over the past few years, including a recent incident this year where he fractured his back in multiple places and injured his neck while lifting a laundry basket at home after a physically demanding workday. 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 He also reports a history of breaking 5 toes, his foot, and ankle while wrestling with his son 3-4 years ago, as well as a prior fracture of his other ankle. He has undergone bone density testing with Dr. Michaud, who informed him that his bones are very bad, comparable to those of someone 20 years older. He denies brittle fingernails. He reports dental problems, including a tooth that broke while eating soft food last year, which he attributes to his bone condition. He denies cavities. He also reports difficulty swallowing both solids and liquids for about a year, which has worsened over time. He experiences episodes where food just won't go down and attributes this to his neck injury and muscle problems for which he received injections last week. He also reports neck stiffness and difficulty moving his neck. He denies kidney stones. He reports urinary frequency and urgency, with variable volumes. He drinks approximately 2 gallons of tea daily and consumes a large glass of lactose-free milk each morning, snacks on cheese, and avoids ice cream and yogurt due to lactose intolerance. He does not take calcium supplements. He reports cognitive slowing, difficulty focusing, and forgetfulness that has worsened over the past year. He also reports muscle weakness and difficulty standing up due to his back injury. He denies palpitations, anxiety, depression, reflux, constipation, shortness of breath, dry cough, hoarseness, heat or cold intolerance, and radiation exposure. He reports snoring and trouble sleeping due to discomfort but is unaware of any sleep apnea. He reports weight fluctuations but states his weight has been steady recently. He reports stable bowel habits. He has a family history of parathyroid problems in his mother, who reportedly had most of her parathyroid glands removed and is doing well. He is unaware of any other family history of thyroid or adrenal conditions. He has no history of radiation exposure. He was diagnosed with a 2.0 cm left thyroid nodule in March, which was biopsied and found to be benign. He has not undergone an EGD. He believes he is up to date on colonoscopies, with the last one performed last year. Patient's current labs are calcium: 11 mg/dL 03/20/2025 (range of 11-11.3), Vitamin D: 26.5 ng/mL 03/20/2025, Ionized calcium: 1.31 mg/dL 03/20/2025, PTH: 180.8 pg/mL 03/20/2025 (range of 180.8-55.9), Phosphorus: 2.5 (03/20/2025) Thyroid ultrasound was completed 03/25/2025 and showed a right thyroid lobe measuring 4.9 x 1.6 x 1.9 cm. The left thyroid lobe measured 5.9 x 2.1 x 1.0 cm. The isthmus was 0.7 cm thick. A single nodule was identified in the lower left lobe and measured 2.0 x 1.4 x 1.1 cm. It was determined to have not significantly changed.. It is described as solid, hyperechoic, taller than wide, with lobular margins, and no suspicious echogenic foci. Overall TI-RADS grading was 5. Imaging as been done with parathyroid scintigraphy on 06/27/2024 showing focal uptake suggesting a left thyroid lobe nodule. Please correlate with thyroid ultrasound. No scintigraphic localization of extra thyroid parathyroid adenoma. Patient has had DEXA imaging 03/25/2025 which showed evidence of osteoporosis with a T-score of -3.0 from patient's right forearm. Patient has not had renal imaging. ROS General General: Yes fatigue; No weight change, appetite, colon cancer, breast cancer or weakness HEENT HEENT: Yes difficulty swallowing and swollen glands; No eye injury, eye surgery or hoarseness Endo Endocrine: Yes thyroid disease; No diabetes mellitus, thyroid cancer, Hair loss, heat intolerance or cold intolerance Skin Skin: No rash or changing moles Musc Musculoskeletal: Yes arthritis; No back problems, rheumatoid arthritis, gout or joint pain Cardio Cardiovascular: No murmur, pacemaker, heart disease, atrial fibrillation, high blood pressure, heart attack, heart stent, palpitations, shortness of breath with exertion or chest pain Psych Psychiatric: No depression, anxiety or hearing voices Resp Respiratory: No shortness of breath, Yes sleep apnea, No cough, No COPD, Yes asthma, No emphysema and No wheezing Gastro Gastrointestinal: No abdominal pain, Yes nausea or vomiting, No diarrhea, No constipation, No blood in stool, No acid reflux, No hemorrhoids, No ulcers, No gallbladder problem and No black,tarry stools Prince Hematologic: No blood thinners, No blood disorders, No bleeding, No anemia and No blood clots Neuro Neurologic: No system reviewed and no additional complaints, except as documented, No as per HPI, No abnormal gait, No abnormal hearing, No abnormal movements, No abnormal speech, No behavioral changes, No burning sensations, No confusion, No convulsions, No disequilibrium, No dizziness, No localized weakness, No frequent falls, No headache(s), No lack of coordination, No loss of vision, No memory loss, No numbness, No other visual disturbances, No radicular pain, No restless legs, No sensory deficit, No syncope, No tingling, No tremor(s), No weakness and No other ROS Narrative Patient currently has tooth infection and has swelling on left side of face. He is on atb. Patient said he has osteoporosis and has had broken bones-toes/feet/vertebrae/ankles Exam Const General: cooperative and no acute distress HENPR Other: Significant swelling over left mandible Neck Other: Palpable left thyroid nodule without increased difficulty swallowing with palpation Assessment and Plan Assessment and Plan (1) Primary hyperparathyroidism: Status: Acute Comment: Patient with clear diagnosis of primary parathyroidism by labs. He is quite symptomatic with a number of recent pathologic fractures as well as osteoporosis determined on DEXA imaging 2 months ago. Interestingly, patient's forearm appears to most demineralized which is somewhat specific to this diagnosis. A brief overview of hyperparathyroidism was provided to patient including the multiple secondary effects of this disease process. It does not appear that patient has undergone testing for occult nephrolithiasis or 24-hour urinary calcium. However, he does have evidence of significant hypercalcemia which meets qualifications for surgical intervention. Additionally, patient underwent localization studies with thyroid ultrasound and parathyroid scintigraphy. Unfortunately no candidate lesions were identified with the studies, but in my independent review I observed a hypoechoic structure in the left superior position that is highly suggestive. With this finding I believe it is possible patient's scintigraphy was in fact positive in the absence of washout on the left was truly attributable to an adenoma? This was further confirmed with my own bedside ultrasound. Any intervention on the patient's thyroid should include intervention for patient's primary hyperparathyroidism so we will continue this investigation. Update 07/12/2025: Patient's 4D CT imaging suggests left-sided parathyroid adenoma. Discussed parathyroidectomy with left thyroid lobectomy versus parathyroidectomy alone. I did mention to patient that radiology had a difficult time distinguishing the border of the parathyroid from the thyroid and there was a potential for an intrathyroidal parathyroid which would potentially require thyroid lobectomy anyhow. He appears undecided about his thyroid nodule but does remain concerned about his swallowing difficulty. I suggested we proceed with a diagnostic EGD especially in light of his recent reflux complaints to exclude any esophageal abnormalities and give us a better idea as to the contribution of his thyroid. CT imaging does not show significant impingement of the esophagus by the thyroid. In order for patient to undergo EGD and clear up the ongoing dental issue prior to parathyroid surgery I recommend delaying his surgery until early next year to accomplish the above. I stated that should be conveyed to his punch out crew member so they can plan for probable bisphosphonate infusion. Lastly I did request that he undergo 24-hour urine calcium study as previously ordered. Plan: ? 24-hour urinary calcium (2) Thyroid nodule: Status: Acute Comment: Patient is a 50-year-old male with history of left thyroid nodule?highly suspicious by TI-RADS rating?that underwent FNA biopsy and determined to be benign. He presents with possible compressive symptom primarily being difficulty swallowing. No prior EGD exam. Given patient's thyroid nodule and low proportions it remains somewhat dubious whether his thyroid is too be implicated with this swallowing difficulty. Therefore, recommending CT imaging to determine spatial relationship to the esophagus as well as possible subsequent recommendation for EGD. Since we are also looking for further localization of a possible parathyroid will obtain 4D CT protocol of the neck. Update 07/12/2025: Patient with benign thyroid nodularity on the left but also probable left-sided parathyroid adenoma. Patient undecided about left thyroid lobectomy and we will, as above, look to EGD to try to determine compressive effect from thyroid on esophagus versus primary esophageal problem. Plan: ? 4D CT imaging to determine relationship of thyroid to esophagus as well as hopefully aid in localization of parathyroid adenoma (3) Difficulty swallowing: Status: Acute Comment: Patient describes dysphagia to solids and liquids. Size of thyroid and nodule do not appear entirely explanatory. Will investigate further with CT imaging. Update 07/12/2025: Patient with ongoing dysphagia complaints. Describes daily reflux problems. Therefore find it necessary to consider primary esophageal problem. Recommended EGD and patient receptive. Plan: Plan for diagnostic EGD (4) Osteoporosis: Status: Acute Comment: Osteoporosis likely secondary to primary hyperparathyroidism described in greater detail above. I have examined the patient the following changes are noted: Patient states that overall he has maintained a general stable state of health since our last visit. However, he does update me that he returned to his dentist and was informed that everything was healing appropriately following his tooth extraction so he was thus referred to an ultrasound for further evaluation but that returned inconclusive. He is now pending evaluation with CT imaging but is yet to be scheduled. Today we will plan for an EGD exam to evaluate for some reported swallowing difficulty as a means of hopefully determining if there is anything intrinsic to the esophagus that is causing this dysphagia or if it is actually due to extrinsic compression from thyroid or other anatomy. Will plan to follow-up with patient via telephone following the procedure as he has no family or friends immediately available and only arranged for a ride following the procedure.
[2025-08-01] MEDS: Lactated Ringers 500 ML IV (10:22)
--- NOTE | 2025-08-01 11:18 | PCM.POST.ANE ---
Anesthesia: Postop Eval I Current Vital Signs Temperature: 97.8 F Pulse Rate: 78 Blood Pressure: 125/78 Respiratory Rate: 18 Pulse Ox: 95 Assessment Airway patent: Yes Spontaneous unlabored respirations: Yes nausea: No Vomiting: No Anesthesia Complication: No Fluid Hydration Crystalloid volume administer (ml): 300 Total IV fluid infused: 300 Progress Note Anesthesia document: Postop Eval 1 completed: Yes
--- NOTE | 2025-08-01 11:36 | OP.PROVAT_ITS ---
08/01/2025 Nacho Gomez Re : Upper GI endoscopy procedure for Yosvany Lino Sravanir Katherin This procedure was performed on July. My impressions and recommendations are as follows: Impressions : - Mucosal changes suspicious for duodenitis. Biopsied. - A few duodenal polyps. Resected and retrieved. - Erythematous mucosa in the antrum. Biopsied. - Normal esophagus. - Normal stomach. - Normal examined duodenum. - Z-line irregular, 38 cm from the incisors. - LA Grade C esophagitis with no bleeding. Biopsied. - The examination was otherwise normal. Recommendations : - Discharge patient to home (via wheelchair). - Soft diet for 1 week. - Use Protonix (pantoprazole) 40 mg PO BID today. - No aspirin, ibuprofen, naproxen, or other non-steroidal anti-inflammatory drugs for 4 days after biopsy. My findings are described in the full procedure note, which is enclosed. If I can be of further assistance, please feel free to contact me at Doctor phone number(s): , Work: . Sincerely, Ayad Guzman MD 08/01/2025 11:35:54 AM This report has been signed electronically.
--- NOTE | 2025-08-01 11:36 | OP.EGD_ITS ---
Patient Name: Yosvany Lino Procedure Date: 08/01/2025 10:11 AM Date of : 1975 Age: 50 Procedure: Upper GI endoscopy Indications: Esophageal dysphagia Providers: Ayad Guzman MD Referring MD: Ayad Guzman MD Medicines: See the Anesthesia note for documentation of the administered medications Patient Profile: Patient has symptoms of chronic dysphagia and dysphagia with both liquids and solids. Complications: No immediate complications. Estimated blood loss: Minimal. Procedure: Pre-Anesthesia Assessment: - The heart rate, respiratory rate, oxygen saturations, blood pressure, adequacy of pulmonary ventilation, and response to care were monitored throughout the procedure. After obtaining informed consent, the endoscope was passed under direct vision. Throughout the procedure, the patient's blood pressure, pulse, and oxygen saturations were monitored continuously. The Endoscope was introduced through the mouth, and advanced to the second part of duodenum. The upper GI endoscopy was technically difficult and complex due to excessive bleeding and the patient's oxygen desaturation. Successful completion of the procedure was aided by controlling the bleeding, lavage, managing the patient's medical instability, performing chin lift and administering oxygen. The patient tolerated the procedure fairly well. Scope In: 10:30:45 AM Scope Out: 11:11:46 AM Total Procedure Duration Time 0 hours 41 minutes 1 second Findings: Localized mild inflammation characterized by nodularity was found in the first portion of the duodenum. Biopsies were taken with a cold forceps for histology. Estimated blood loss: 2 mL requiring treatment with placement of hemostatic clip(s). A few 3 to 5 mm semi-sessile polyps with no bleeding were found in the duodenal bulb. The polyp was removed with a hot snare. Resection and retrieval were complete using a suction (via the working channel). [Clip Device]. Localized mildly erythematous mucosa without bleeding was found in the gastric antrum. Biopsies were taken with a cold forceps for histology. Estimated blood loss was minimal. The esophagus was normal. The stomach was normal. The examined duodenum was normal. The Z-line was irregular and was found 38 cm from the incisors. LA Grade C (one or more mucosal breaks continuous between tops of 2 or more mucosal folds, less than 75% circumference) esophagitis with no bleeding was found 36 to 38 cm from the incisors. Biopsies were taken with a cold forceps for histology. Estimated blood loss: 5 mL requiring treatment with placement of hemostatic clip(s). The exam was otherwise without abnormality. Impression: - Mucosal changes suspicious for duodenitis. Biopsied. - A few duodenal polyps. Resected and retrieved. - Erythematous mucosa in the antrum. Biopsied. - Normal esophagus. - Normal stomach. - Normal examined duodenum. - Z-line irregular, 38 cm from the incisors. - LA Grade C esophagitis with no bleeding. Biopsied. - The examination was otherwise normal. Recommendation: - Discharge patient to home (via wheelchair). - Soft diet for 1 week. - Use Protonix (pantoprazole) 40 mg PO BID today. - No aspirin, ibuprofen, naproxen, or other non-steroidal anti-inflammatory drugs for 4 days after biopsy. Procedure Code(s): --- Professional --- 79984, Esophagogastroduodenoscopy, flexible, transoral; with removal of tumor(s), polyp(s), or other lesion(s) by snare technique 25523, 59, Esophagogastroduodenoscopy, flexible, transoral; with biopsy, single or multiple Diagnosis Code(s): --- Professional --- K31.89, Other diseases of stomach and duodenum K31.7, Polyp of stomach and duodenum K22.89, Other specified disease of esophagus K20.90, Esophagitis, unspecified without bleeding R13.14, Dysphagia, pharyngoesophageal phase CPT copyright 2021 [employer]. All rights reserved. The codes documented in this report are preliminary and upon mold carrier review may be revised to meet current compliance requirements. Ayad Guzman MD 08/01/2025 11:35:54 AM This report has been signed electronically. Number of Addenda: 0 Note Initiated On: 08/01/2025 10:11 AM
--- NOTE | 2025-08-01 12:28 | POSTOPAN2_ITS ---
Anesthesia Postop Eval I Sum Postop Eval Completion status Anesthesia document: Postop Eval 1 completed: Yes Anesthesia Postop Eval I Summary Anesthesia Postop Eval I Summary: Anesthesia Postop Eval I: Assessment Summary Airway patent Yes 08/01/25 11:18 [email or web address] Spontaneous unlabored Yes 08/01/25 11:18 GOGGLES [email or web address] respirations Mental status nausea No 08/01/25 11:18 GOGGLES [email or web address].CSIR Vomiting No 08/01/25 11:18 [email or web address].CSIR Anesthesia Postop Eval I: Fluid Summary Crystalloid volume administer 300 08/01/25 11:18 [email or web address].CSIR (ml) Colloids volume administered ( ml) Blood Product volume administered (ml) Total IV fluid infused 300 08/01/25 11:18 [email or web address].CSIR Anesthesia Postop Eval I: Summary Notes Anesthesia Complication No 08/01/25 11:18 [email or web address] Anesthesia Complication Comment: Post-operative progress note Anesthesia: Postop Eval II Evaluation Mental status: Awake Pain Level: 0 nausea: No Vomiting: No
--- NOTE | 2025-08-01 12:28 | PCM.POSTANE2 ---
Anesthesia Postop Eval I Sum Postop Eval Completion status Anesthesia document: Postop Eval 1 completed: Yes Anesthesia Postop Eval I Summary Anesthesia Postop Eval I Summary: Anesthesia Postop Eval I: Assessment Summary Airway patent Yes 08/01/25 11:18 CUT OFF SAW OPERATOR.CSIR Spontaneous unlabored Yes 08/01/25 11:18 CUT OFF SAW OPERATOR.CSIR respirations Mental status nausea No 08/01/25 11:18 CUT OFF SAW OPERATOR.CSIR Vomiting No 08/01/25 11:18 CUT OFF SAW OPERATOR.CSIR Anesthesia Postop Eval I: Fluid Summary Crystalloid volume administer 300 08/01/25 11:18 CUT OFF SAW OPERATOR.CSIR (ml) Colloids volume administered ( ml) Blood Product volume administered (ml) Total IV fluid infused 300 08/01/25 11:18 CUT OFF SAW OPERATOR.CSIR Anesthesia Postop Eval I: Summary Notes Anesthesia Complication No 08/01/25 11:18 CUT OFF SAW OPERATOR.CSIR Anesthesia Complication Comment: Post-operative progress note Anesthesia: Postop Eval II Evaluation Mental status: Awake Pain Level: 0 nausea: No Vomiting: No
== END 2025-08-01 11:54 | disposition home or self-care (01) ==
LOC: EN 08:27 → AC 08:28
PROVIDERS: PCP Nurse Practitioner Primary Care; Referring Provider Surgery; Visit Provider Surgery
PROC: 0DJ08ZZ Inspection of Upper Intestinal Tract, Via Natural or Artificial Opening Endoscopic (ICD-10-PCS; CPT 43235; principal; 2025-08-01 09:25)
DX: K31.A0 Gastric intestinal metaplasia, unspecified (principal); Z79.899 Other long term (current) drug therapy; E21.0 Primary hyperparathyroidism; M81.0 Age-related osteoporosis without current pathological fracture; K31.7 Polyp of stomach and duodenum; E04.1 Nontoxic single thyroid nodule; K20.90 Esophagitis, unspecified without bleeding; K29.50 Unspecified chronic gastritis without bleeding; J45.909 Unspecified asthma, uncomplicated; F17.210 Nicotine dependence, cigarettes, uncomplicated
CPT/HCPCS: 43251; 43239; 88305; 88342; J2405